=== PATIENT | female | born 1940 | race Hispanic/Latino ===

== ENCOUNTER 2017-09-23 22:01 | Inpatient (IN) | payer MEDICARE, OTHER ==
[2017-09-23 22:01] VITALS: BMI 30.7
[2017-09-23] MEDS ORDERED: Sodium Chloride 0.9% 1,000 ML IV ONE (23:11)
--- NOTE | 2017-09-23 23:11 | C.PDOC ---
History Of Present Illness Patient brought in by EMS sent by [facility] at [facility] presents to ED for nausea and vomiting, associated with epigastric/periumbilical pain. Denies, diarrhea, constipation, shortness of breath. Time Seen by Provider: 09/23/17 23:11 Chief Complaint (Nursing): Abdominal Pain History Per: Patient History/Exam Limitations: no limitations Onset/Duration Of Symptoms: Hrs Current Symptoms Are (Timing): Still Present Severity: Moderate Pain Scale Rating Of: 4 Location Of Pain/Discomfort: Epigastric, Periumbilical Quality Of Discomfort: Unable To Describe Associated Symptoms: Nausea, Vomiting. denies: Fever, Chills, Diarrhea, Constipation Exacerbating Factors: None Alleviating Factors: None Recent travel outside of the [place]: No Past Medical History Reviewed: Historical Data, Nursing Documentation, Vital Signs Vital Signs: Last Vital Signs Temp 97.9 F 09/24/17 01:22 Pulse 85 09/24/17 01:22 Resp 24 09/24/17 01:22 BP 62/34 L 09/24/17 01:22 Pulse Ox 100 09/24/17 01:22 - Medical History PMH: Arthritis, Diabetes, Gall Bladder Disease (CHOLEYCSTECTOMY), HTN, Peripheral Edema Denies: Depression Surgical History: Cholecystectomy - [facility] Procedures APPLICATION OF SPLINT (10/29/03) DX ULTRASOUND-DIGESTIVE (11/26/13) ESOPHAGOGASTRODUODENOSCOPY [EGD] W/CLOSED BIOPSY (11/26/13) INTRAOPER CHOLANGIOGRAM (11/26/13) LAPAROSCOPIC CHOLECYSTECTOMY (11/26/13) VACCINATION NEC (08/18/14) Family History: States: No Known Family Hx - Social History Hx Alcohol Use: No Hx Substance Use: No - Immunization History Hx Tetanus Toxoid Vaccination: No Hx Influenza Vaccination: No Hx Pneumococcal Vaccination: No Review Of Systems Constitutional: Negative for: Fever, Chills Respiratory: Negative for: Shortness of Breath Gastrointestinal: Positive for: Nausea, Vomiting, Abdominal Pain. Negative for : Diarrhea, Constipation Neurological: Negative for: Weakness, Numbness Physical Exam - Physical Exam Appears: Non-toxic Skin: Warm, Dry Head: Normacephalic Eye(s): bilateral: Normal Inspection Oral Mucosa: Dry Neck: Trachea Midline, Supple Chest: Symmetrical Cardiovascular: Rhythm Regular Respiratory: No Rales, Rhonchi (dry, scattered), No Wheezing Gastrointestinal/Abdominal: Soft, Tenderness (mid epigastric), Distention, No Guarding, No Rebound, Other (tympanic to percussion) Neurological/Psych: Oriented x3 Gait: Steady ED Course And Treatment - Laboratory Results Result Diagrams: 09/24/17 00:10 09/24/17 00:10 ECG: Interpreted By Me, Viewed By Me ECG Rhythm: Sinus Rhythm (84), R BBB, Nonspecific Changes O2 Sat by Pulse Oximetry: 97 (RA) Pulse Ox Interpretation: Normal - Radiology CXR Interpretation: Yes: Infiltrates (rll, ), Cardiomegaly, Other (? mild vasc congestion). No: Fracture Progress Note: EKG, chest X-ray, labs, protonix, zofran, urinalysis ordered. Critical Care Time - Critical Care Note Total Time (in mins): 30 Documented critical care: time excludes all time spent performing seperately billable procedures. Disposition Discussed With : Morales Kerr Comment: accepted the pt on his service and took over the care at 3 AM Doctor Will See Patient In The: Hospital Counseled Patient/Family Regarding: Studies Performed, Diagnosis - Disposition Disposition: HOSPITALIZED Disposition Time: 23:11 Condition: FAIR Forms: [employer] (Tuvaluan) - POA Present On Arrival: Poor Glycemic Control - Clinical Impression Clinical Impression: Abdominal pain, Nausea, Pneumonia, Renal insufficiency - Scribe Statement The provider has reviewed the documentation as recorded by the Jimenez Funk Anand Provider Attestation: All medical record entries made by the Jimenez were at my direction and personally dictated by me. I have reviewed the chart and agree that the record accurately reflects my personal performance of the history, physical exam, medical decision making, and the department course for this patient. I have also personally directed, reviewed, and agree with the discharge instructions and disposition. Decision To Admit - Pt Status Changed To: Hospital Disposition Of: Inpatient - Admit Certification Admit to Inpatient:: After my assessment, the patient will require hospitalization for at least two midnights. This is because of the severity of symptoms shown, intensity of services needed, and/or the medical risk in this patient being treated as an outpatient. - InPatient: Physician Admission Certification:: After my assessment, the patient will require hospitalization for at least two midnights. This is because of the severity of symptoms shown, intensity of services needed, and/or the medical risk in this patient being treated as an outpatient. - . Bed Request Type: Telemetry Admitting Physician: Morales Kerr Patient Diagnosis: Abdominal pain, Nausea, Pneumonia
[2017-09-23] MEDS ORDERED: Sodium Chloride 0.9% 1,000 ML ONE (23:14)
[2017-09-23 23:33] LABS: VENOUS BLOOD GAS BASE EXCESS 1.9 mmol/L (0.0-2.0); VENOUS BLOOD GAS PCO2 41 mmHg (40-60); VENOUS BLOOD GAS PO2 18 mm/Hg (30-55); VENOUS BLOOD PH 7.42 (7.32-7.43)
[2017-09-24 00:19] LABS: BASO % 0.3 % (0.0-2.0); LYMPH # 1.4 K/uL (1.0-4.3); LYMPH % 8.1 % (20.0-40.0); MEAN CELL VOLUME 87.1 fL (81.0-99.0); MEAN CORPUSCULAR HEMOGLOBIN 28.8 pg (27.0-31.0); MEAN CORPUSCULAR HGB CONC 33.1 g/dL (33.0-37.0); MEAN PLATELET VOLUME 7.9 fL (7.2-11.7); MONO # 0.4 K/uL (0.0-0.8); MONO % 2.2 % (0.0-10.0); NEUT # 15.2 K/uL (1.8-7.0); NEUT % 89.4 % (50.0-75.0); PLATELET COUNT 150 K/uL (130-400); RBC 3.48 Mil/uL (3.80-5.20); RED CELL DISTRIBUTION WIDTH 15.3 % (11.5-14.5)
[2017-09-24] MEDS ORDERED: Piperacillin/Tazobact 3.375 gm 100 ML IVPB STA (00:32)
[2017-09-24 00:33] LABS: INR 1.3; PROTHROMBIN TIME 14.6 SECONDS (9.7-12.2)
[2017-09-24] MEDS ORDERED: Piperacillin/Tazobact 3.375 gm 100 ML IVPB ONE (00:38)
[2017-09-24 00:41] LABS: ALB/GLOB RATIO 1.1 (1.0-2.1); ALBUMIN 2.9 g/dL (3.5-5.0); CALCIUM 9.1 mg/dl (8.6-10.4)
[2017-09-24 01:00] LABS: SQUAMOUS EPITHIAL 1 /hpf (0-5); URINE AMORPHOUS SEDIMENT RARE /ul (<OCC); URINE BACTERIA OCC (<OCC); URINE BILIRUBIN NEGATIVE (NEGATIVE); URINE BLOOD 1+ (NEGATIVE); URINE CLARITY Hazy (Clear); URINE COLOR Amber (YELLOW); URINE GLUCOSE (UA) NORMAL (Normal); URINE LEUKOCYTE ESTERASE TRACE Leu/uL (Negative); URINE PROTEIN 1+ mg/dL (NEGATIVE)
[2017-09-24] MEDS ORDERED: Sodium Chloride 0.9% 1,000 ML ONE ×3 (01:39→05:32)
[2017-09-24 01:56] LABS: BANDS 22 % (0-2); LYMPHOCYTE 8 % (20-40); MONOCYTE 3 % (0-10); NEUTROPHIL 67 % (50-75); PLATELET ESTIMATE NORMAL (NORMAL); TOTAL CELLS COUNTED 100
[2017-09-24] MEDS ORDERED: Vancomycin 1 GM 1 GM/250 ML BAG IVPB SCH (02:15)
[2017-09-24] MEDS ORDERED: Vancomycin 1 GM 1 GM/250 ML BAG IVPB STA (02:16)
[2017-09-24] MEDS ORDERED: Sodium Chloride 0.9% 1,000 ML IV ONE ×5 (03:13→08:58)
[2017-09-24] MEDS: Albuterol-Ipratrop 3 mg / 0.5 (3 ml) UD INH SCH ×4 (04:31→16:00)
[2017-09-24] MEDS ORDERED: Albuterol-Ipratrop 3 mg / 0.5 (3 ml) UD ONE (04:35)
[2017-09-24 04:40] LABS: VENOUS BLOOD GAS BASE EXCESS -1.9 mmol/L (0.0-2.0); VENOUS BLOOD GAS PCO2 46 mmHg (40-60); VENOUS BLOOD GAS PO2 18 mm/Hg (30-55); VENOUS BLOOD PH 7.33 (7.32-7.43)
--- NOTE | 2017-09-24 05:57 | CP.PCM.CON ---
History of Present Illness - History of Present Illness History of Present Illness: CCM 77 yo female NHR with hx HTn /DM /Arthritis sent to ED b/o abd. pain and vomited. Pt had low BP in ED which improved after 2 liters IV fluid. Pt started on Ab for UTI and PNA. Pt admits dysuria for 1 month. Denies pain /n /v /d /sob /cough/ PATEL/ dizziness. ROS- as noted All- PCN / eggs Social- ex-tob/ no etoh or drugs Meds- reviewed FH- Unknown PE T-99.6 P 88 R- 16 BP 115/49 Neck- no jvd lungs- bilat bs haert-rr aBd- bs+, soft, no localized tenderness Ext- nontender Labs, ekg, x-rays Reviewed A&P Severe Sepsis UTI PNA IKE Anemia DM Hx HTN Arthritis cont IV fluid cont AB/ add zithromax check cultures Urine Leg Ag maintain optimal lytes f/u labs /lactate DVT prophylaxis critical care time spent 40 min Past Patient History - Infectious Disease Hx of Infectious Diseases: None - Tetanus Immunizations Tetanus Immunization: Unknown - Past Social History Smoking Status: Current Some Days Smoker - CARDIAC Hx Hypertension: Yes Hx Peripheral Edema: Yes - PULMONARY Hx Respiratory Disorders: Yes (SMOKED CIGARETTES SINCE 16 YRS OLD.CURRENTLY SMOKED 1/2 PPD) - HEENT Hx HEENT Problems: Yes (recently having blurred vision both eyes-CATARACTS) Hx Cataracts: Yes (BILATERAL BLURRY VISION) - ENDOCRINE/METABOLIC Hx Endocrine Disorders: Yes Hx Diabetes Mellitus Type 2: Yes - HEMATOLOGICAL/ONCOLOGICAL Hx Blood Disorders: Yes Other/Comment: SEPSIS 2NDARY TO UTI - INTEGUMENTARY Hx Dermatological Problems: Yes (MASD-IN BETWEEN GLUTEAL FOLDS SECONDARY TO INCONTINENCY) Other/Comment: IASD - MUSCULOSKELETAL/RHEUMATOLOGICAL Hx Arthritis: Yes - GASTROINTESTINAL Hx Gall Bladder Disease: Yes (CHOLEYCSTECTOMY) - GENITOURINARY/GYNECOLOGICAL Hx Genitourinary Disorders: Yes Hx Incontinence: Yes (urine/frequency) Hx Urinary Tract Infection: Yes Other/Comment: PYELONEPHRITIS - PSYCHIATRIC Hx Depression: No Hx Substance Use: No - SURGICAL HISTORY Hx Cholecystectomy: Yes - ANESTHESIA Hx Anesthesia: Yes Hx Anesthesia Reactions: No Hx Malignant Hyperthermia: No Meds Allergies/Adverse Reactions: Allergies Allergy/AdvReac Type Severity Reaction Status Date / Time egg Allergy RASH Verified 09/24/17 05:28 ORANGE Allergy RASH Verified 02/07/15 18:32 - Medications Medications: Current Medications Albuterol/Ipratropium (Duoneb 3 Mg/0.5 Mg (3 Ml) Ud) 3 ml INH RQ4 BARNEY Stop: 09/24/17 16:01 Last Admin: 09/24/17 04:31 Dose: 3 ml Sodium Chloride (Sodium Chloride 0.9%) 1,000 mls @ 200 mls/hr IV .Q5H ONE Stop: 09/24/17 08:12 Last Admin: 09/24/17 03:30 Dose: 200 mls/hr Results - Vital Signs Recent Vital Signs: Last Vital Signs Temp 98.7 F 09/24/17 04:05 Pulse 98 H 09/24/17 05:13 Resp 24 09/24/17 05:13 BP 115/49 L 09/24/17 05:13 Pulse Ox 99 09/24/17 05:13 - Labs Result Diagrams: 09/24/17 00:10 09/24/17 00:10 Labs: Laboratory Results - last 24 hr 09/23/17 09/24/17 09/24/17 23:20 00:10 00:10 WBC 17.0 H RBC 3.48 L Hgb 10.0 L Hct 30.3 L MCV 87.1 MCH 28.8 MCHC 33.1 RDW 15.3 H Plt Count 150 MPV 7.9 Neut % (Auto) 89.4 H Lymph % (Auto) 8.1 L [place] % (Auto) 2.2 Eos % (Auto) 0.0 Baso % (Auto) 0.3 Neut # (Auto) 15.2 H Lymph # (Auto) 1.4 [place] # (Auto) 0.4 Eos # (Auto) 0.0 Baso # (Auto) 0.0 Neutrophils % (Manual) 67 Band Neutrophils % 22 H* Lymphocytes % (Manual) 8 L Monocytes % (Manual) 3 Platelet Estimate Normal RBC Morphology Normal PT INR APTT pO2 18 L VBG pH 7.42 VBG pCO2 41 VBG HCO3 24.5 VBG Total CO2 27.9 VBG O2 Sat (Calc) 30.8 L VBG Base Excess 1.9 VBG Potassium 4.4 Sodium 131.0 L 133 Chloride 98.0 95 L Glucose 105 Lactate 2.1 Potassium 4.6 Carbon Dioxide 27 Anion Gap 16 BUN 33 H Creatinine 2.2 H Est GFR ( Amer) 26 Est GFR (Non-Af Amer) 22 POC Glucose (mg/dL) Random Glucose 107 H Calcium 9.1 Total Bilirubin 0.9 AST 12 L ALT 19 Alkaline Phosphatase 50 Total Protein 5.5 L Albumin 2.9 L Globulin 2.6 Albumin/Globulin Ratio 1.1 Lipase 13 L Venous Blood Potassium 4.4 Urine Color Urine Clarity Urine pH Ur Specific [place] Urine Protein Urine Glucose (UA) Urine Ketones Urine Blood Urine Nitrate Urine Bilirubin Urine Urobilinogen Ur Leukocyte Esterase Urine WBC (Auto) Urine RBC (Auto) Ur Squamous Epith Cells Amorphous Sediment Urine Bacteria 09/24/17 09/24/17 09/24/17 00:10 00:10 00:52 WBC RBC Hgb Hct MCV MCH MCHC RDW Plt Count MPV Neut % (Auto) Lymph % (Auto) [place] % (Auto) Eos % (Auto) Baso % (Auto) Neut # (Auto) Lymph # (Auto) [place] # (Auto) Eos # (Auto) Baso # (Auto) Neutrophils % (Manual) Band Neutrophils % Lymphocytes % (Manual) Monocytes % (Manual) Platelet Estimate RBC Morphology PT 14.6 H INR 1.3 APTT 27 pO2 VBG pH VBG pCO2 VBG HCO3 VBG Total CO2 VBG O2 Sat (Calc) VBG Base Excess VBG Potassium Sodium Chloride Glucose Lactate Potassium Carbon Dioxide Anion Gap BUN Creatinine Est GFR ( Amer) Est GFR (Non-Af Amer) POC Glucose (mg/dL) 69 Random Glucose Calcium Total Bilirubin AST ALT Alkaline Phosphatase Total Protein Albumin Globulin Albumin/Globulin Ratio Lipase Venous Blood Potassium Urine Color Gema Urine Clarity Hazy Urine pH 5.0 Ur Specific [place] 1.012 Urine Protein 1+ H Urine Glucose (UA) Normal Urine Ketones Trace Urine Blood 1+ H Urine Nitrate Negative Urine Bilirubin Negative Urine Urobilinogen 4.0 H Ur Leukocyte Esterase Trace Urine WBC (Auto) 53 H Urine RBC (Auto) 7 H Ur Squamous Epith Cells 1 Amorphous Sediment Rare H Urine Bacteria Occ H 09/24/17 09/24/17 00:58 04:29 WBC RBC Hgb Hct MCV MCH MCHC RDW Plt Count MPV Neut % (Auto) Lymph % (Auto) [place] % (Auto) Eos % (Auto) Baso % (Auto) Neut # (Auto) Lymph # (Auto) [place] # (Auto) Eos # (Auto) Baso # (Auto) Neutrophils % (Manual) Band Neutrophils % Lymphocytes % (Manual) Monocytes % (Manual) Platelet Estimate RBC Morphology PT INR APTT pO2 18 L VBG pH 7.33 VBG pCO2 46 VBG HCO3 21.4 VBG Total CO2 25.7 VBG O2 Sat (Calc) 33.8 L VBG Base Excess -1.9 L VBG Potassium 4.4 Sodium 133.0 Chloride 103.0 Glucose 59 L Lactate 2.9 H Potassium Carbon Dioxide Anion Gap BUN Creatinine Est GFR ( Amer) Est GFR (Non-Af Amer) POC Glucose (mg/dL) 67 Random Glucose Calcium Total Bilirubin AST ALT Alkaline Phosphatase Total Protein Albumin Globulin Albumin/Globulin Ratio Lipase Venous Blood Potassium 4.4 Urine Color Urine Clarity Urine pH Ur Specific [place] Urine Protein Urine Glucose (UA) Urine Ketones Urine Blood Urine Nitrate Urine Bilirubin Urine Urobilinogen Ur Leukocyte Esterase Urine WBC (Auto) Urine RBC (Auto) Ur Squamous Epith Cells Amorphous Sediment Urine Bacteria Assessment & Plan (1) Severe sepsis Status: Acute (2) IKE (acute kidney injury) Status: Acute (3) Urinary tract infection Status: Acute (4) Diabetes Status: Chronic (5) Arthritis Status: Chronic
[2017-09-24] MEDS: Azithromycin 500 MG in Sodium Chloride 0.9% 250 ML IVPB SCH (06:16)
--- NOTE | 2017-09-24 09:48 | CT ---
PROCEDURE: CT Abdomen and Pelvis without contrast HISTORY: mid epigastric pain, n/v COMPARISON: None. TECHNIQUE: CT scan of the abdomen and pelvis was performed without IV contrast. The absence of oral contrast limits evaluation of bowel lumen. The absence of intravenous contrast limits evaluation of solid organs including the kidneys as well as blood vessels and vascular structures. Coronal and sagittal reconstructions were also acquired. Radiation dose: Total exam DLP = 990 mGy-cm. FINDINGS: LOWER THORAX: Calcified granuloma right middle lobe. Large consolidation right lower lobe with air bronchograms. Small left pleural effusion. Minimal left basilar dependent atelectasis. Heart is normal in size. Coronary vessel calcifications are noted. Patient appears to be status post left mastectomy. . LIVER: Unremarkable unenhanced appearance. GALLBLADDER AND BILE DUCTS: Gallbladder is surgically absent with multiple surgical clips in the gallbladder fossa. PANCREAS: Mild fatty atrophy of the pancreas. SPLEEN: Unremarkable unenhanced appearance. ADRENALS: Unremarkable unenhanced appearance. KIDNEYS AND URETERS: Right kidney: Unremarkable unenhanced appearance. There is no nephrolithiasis or hydronephrosis. Left kidney: Unremarkable unenhanced appearance. There is no nephrolithiasis or hydronephrosis. BLADDER: Diffuse wall thickening noted of the urinary bladder. REPRODUCTIVE: Uterus appears unremarkable by CT. APPENDIX: Not identified. No evidence of appendicitis. STOMACH AND BOWEL: There is no abnormal small or large bowel dilatation. Diverticulum noted of the 2nd portion duodenum. PERITONEUM: No free fluid or free air identified. LYMPH NODES: No significant abdominal or pelvic lymphadenopathy. VASCULATURE: Aorta is normal in caliber.Aortobi-iliac atherosclerotic disease noted. BONES: Bones are demineralized and demonstrate degenerative changes. Superior compression deformity of L2 with 25-50 % loss of vertebral body height. Superior compression deformity of L3 with up to 25 % loss of vertebral body height. These are both age indeterminate. OTHER FINDINGS: Small fat containing umbilical hernia. Laxity noted of the pelvic floor. IMPRESSION: Diffuse wall thickening of the urinary bladder. Consider cystitis. Correlation with urinalysis is recommended. Right lower lobe consolidation, consistent with infectious/ inflammatory process. Consider aspiration pneumonia. Superior compression deformities of L2 and L3 as above, age indeterminate. Additional findings as above. Preliminary impression was provided by [facility]. Findings are concordant.
[2017-09-24] MEDS: Piperacill/Tazo 2.25gm in Dex 2.25 GM/50 ML BAG IVPB SCH ×2 (09:55→17:38)
--- NOTE | 2017-09-24 11:32 | RAD ---
HISTORY: abd pain COMPARISON: None TECHNIQUE: Chest one view . FINDINGS: LUNGS: Airspace opacity right lower lung field. PLEURA: No pleural effusion is identified. CARDIOVASCULAR: Heart size is within normal limits.Atherosclerotic calcifications noted of the aorta. OSSEOUS STRUCTURES: Mild hypertrophic degenerative changes noted of the bilateral acromioclavicular joints. VISUALIZED UPPER ABDOMEN: Unremarkable. OTHER FINDINGS: None. IMPRESSION: Airspace opacity right lower lung field, likely infectious/ inflammatory process.
--- NOTE | 2017-09-24 14:08 | CP.PCM.CON ---
History of Present Illness - History of Present Illness History of Present Illness: Reason for consultation: right lung pneumonia 77-year-old female with past medical history of hypertension, diabetes, arthritis who presented to emergency room for abdominal pain and vomiting. Chest x-ray consistent with right lower lung infiltrate. Patient hypotensive in the emergency and responded to IV fluids. Patient started on IV antibiotics for his UTI and pneumonia. Vision complaining of dysuria for the past 1 month Review of Systems - Review of Systems All systems: reviewed and no additional remarkable complaints except (vomiting and abdominal pain) Past Patient History - Infectious Disease Hx of Infectious Diseases: None - Tetanus Immunizations Tetanus Immunization: Unknown - Past Medical History & Family History Past Medical History?: Yes - Past Social History Smoking Status: Former Smoker - CARDIAC Hx Hypertension: Yes Hx Peripheral Edema: Yes - PULMONARY Hx Respiratory Disorders: Yes (SMOKED CIGARETTES SINCE 16 YRS OLD.CURRENTLY SMOKED 1/2 PPD) - HEENT Hx HEENT Problems: Yes (recently having blurred vision both eyes-CATARACTS) Hx Cataracts: Yes (BILATERAL BLURRY VISION) - ENDOCRINE/METABOLIC Hx Endocrine Disorders: Yes Hx Diabetes Mellitus Type 2: Yes - HEMATOLOGICAL/ONCOLOGICAL Hx Blood Disorders: Yes Other/Comment: SEPSIS 2NDARY TO UTI - INTEGUMENTARY Hx Dermatological Problems: Yes (MASD-IN BETWEEN GLUTEAL FOLDS SECONDARY TO INCONTINENCY) Other/Comment: IASD - MUSCULOSKELETAL/RHEUMATOLOGICAL Hx Falls: Yes - GASTROINTESTINAL Hx Gall Bladder Disease: Yes (CHOLEYCSTECTOMY) - GENITOURINARY/GYNECOLOGICAL Hx Genitourinary Disorders: Yes Hx Incontinence: Yes (urine/frequency) Hx Urinary Tract Infection: Yes Other/Comment: PYELONEPHRITIS - PSYCHIATRIC Hx Substance Use: No - SURGICAL HISTORY Hx Cholecystectomy: Yes - ANESTHESIA Hx Anesthesia: Yes Hx Anesthesia Reactions: No Hx Malignant Hyperthermia: No Meds Allergies/Adverse Reactions: Allergies Allergy/AdvReac Type Severity Reaction Status Date / Time egg Allergy RASH Verified 09/24/17 05:28 ORANGE Allergy RASH Verified 02/07/15 18:32 - Medications Medications: Current Medications Albuterol/Ipratropium (Duoneb 3 Mg/0.5 Mg (3 Ml) Ud) 3 ml INH RQ4 BARNEY Stop: 09/24/17 16:01 Last Admin: 09/24/17 11:24 Dose: 3 ml Heparin Sodium (Porcine) (Heparin) 5,000 units SC Q12 BARNEY Azithromycin 500 mg/ Sodium (Chloride) 250 mls @ 250 mls/hr IVPB DAILY BARNEY PRN Reason: Protocol Stop: 09/29/17 23:59 Last Admin: 09/24/17 06:16 Dose: 250 mls/hr Sodium Chloride (Sodium Chloride 0.9%) 1,000 mls @ 70 mls/hr IV .[id number] ONE Stop: 09/24/17 23:15 Last Admin: 09/24/17 09:12 Dose: 70 mls/hr Piperacillin Sod/Tazobactam Sod (Zosyn 2.25 Gm Iv Premix) 2.25 gm in 50 mls @ 100 mls/hr IVPB Q8H BARNEY PRN Reason: Protocol Last Admin: 09/24/17 09:55 Dose: 100 mls/hr Vancomycin HCl 500 mg/ Sodium (Chloride) 100 mls @ 67 mls/hr IVPB Q24H BARNEY PRN Reason: Protocol Stop: 09/29/17 10:31 Last Admin: 09/24/17 09:55 Dose: 67 mls/hr Physical Exam - Head Exam Head Exam: ATRAUMATIC, NORMOCEPHALIC - ENT Exam ENT Exam: Mucous Membranes Moist - Neck Exam Neck exam: Positive for: Normal Inspection - Respiratory Exam Respiratory Exam: Rales, Rhonchi - Cardiovascular Exam Cardiovascular Exam: REGULAR RHYTHM - GI/Abdominal Exam GI & Abdominal Exam: Normal Bowel Sounds, Soft Results - Vital Signs Recent Vital Signs: Last Vital Signs Temp 98.4 F 09/24/17 12:23 Pulse 88 09/24/17 12:23 Resp 22 09/24/17 12:23 BP 106/47 L 09/24/17 12:23 Pulse Ox 100 09/24/17 12:23 - Labs Result Diagrams: 09/24/17 00:10 09/24/17 00:10 Labs: Laboratory Results - last 24 hr 09/23/17 09/24/17 09/24/17 23:20 00:10 00:10 WBC 17.0 H RBC 3.48 L Hgb 10.0 L Hct 30.3 L MCV 87.1 MCH 28.8 MCHC 33.1 RDW 15.3 H Plt Count 150 MPV 7.9 Neut % (Auto) 89.4 H Lymph % (Auto) 8.1 L [place] % (Auto) 2.2 Eos % (Auto) 0.0 Baso % (Auto) 0.3 Neut # (Auto) 15.2 H Lymph # (Auto) 1.4 [place] # (Auto) 0.4 Eos # (Auto) 0.0 Baso # (Auto) 0.0 Neutrophils % (Manual) 67 Band Neutrophils % 22 H* Lymphocytes % (Manual) 8 L Monocytes % (Manual) 3 Platelet Estimate Normal RBC Morphology Normal PT INR APTT pO2 18 L VBG pH 7.42 VBG pCO2 41 VBG HCO3 24.5 VBG Total CO2 27.9 VBG O2 Sat (Calc) 30.8 L VBG Base Excess 1.9 VBG Potassium 4.4 Sodium 131.0 L 133 Chloride 98.0 95 L Glucose 105 Lactate 2.1 Potassium 4.6 Carbon Dioxide 27 Anion Gap 16 BUN 33 H Creatinine 2.2 H Est GFR ( Amer) 26 Est GFR (Non-Af Amer) 22 POC Glucose (mg/dL) Random Glucose 107 H Lactic Acid Calcium 9.1 Total Bilirubin 0.9 AST 12 L ALT 19 Alkaline Phosphatase 50 Total Protein 5.5 L Albumin 2.9 L Globulin 2.6 Albumin/Globulin Ratio 1.1 Lipase 13 L Venous Blood Potassium 4.4 Urine Color Urine Clarity Urine pH Ur Specific [place] Urine Protein Urine Glucose (UA) Urine Ketones Urine Blood Urine Nitrate Urine Bilirubin Urine Urobilinogen Ur Leukocyte Esterase Urine WBC (Auto) Urine RBC (Auto) Ur Squamous Epith Cells Amorphous Sediment Urine Bacteria 09/24/17 09/24/17 09/24/17 00:10 00:10 00:52 WBC RBC Hgb Hct MCV MCH MCHC RDW Plt Count MPV Neut % (Auto) Lymph % (Auto) [place] % (Auto) Eos % (Auto) Baso % (Auto) Neut # (Auto) Lymph # (Auto) [place] # (Auto) Eos # (Auto) Baso # (Auto) Neutrophils % (Manual) Band Neutrophils % Lymphocytes % (Manual) Monocytes % (Manual) Platelet Estimate RBC Morphology PT 14.6 H INR 1.3 APTT 27 pO2 VBG pH VBG pCO2 VBG HCO3 VBG Total CO2 VBG O2 Sat (Calc) VBG Base Excess VBG Potassium Sodium Chloride Glucose Lactate Potassium Carbon Dioxide Anion Gap BUN Creatinine Est GFR ( Amer) Est GFR (Non-Af Amer) POC Glucose (mg/dL) 69 Random Glucose Lactic Acid Calcium Total Bilirubin AST ALT Alkaline Phosphatase Total Protein Albumin Globulin Albumin/Globulin Ratio Lipase Venous Blood Potassium Urine Color Gema Urine Clarity Hazy Urine pH 5.0 Ur Specific [place] 1.012 Urine Protein 1+ H Urine Glucose (UA) Normal Urine Ketones Trace Urine Blood 1+ H Urine Nitrate Negative Urine Bilirubin Negative Urine Urobilinogen 4.0 H Ur Leukocyte Esterase Trace Urine WBC (Auto) 53 H Urine RBC (Auto) 7 H Ur Squamous Epith Cells 1 Amorphous Sediment Rare H Urine Bacteria Occ H 09/24/17 09/24/17 09/24/17 00:58 04:29 04:59 WBC RBC Hgb Hct MCV MCH MCHC RDW Plt Count MPV Neut % (Auto) Lymph % (Auto) [place] % (Auto) Eos % (Auto) Baso % (Auto) Neut # (Auto) Lymph # (Auto) [place] # (Auto) Eos # (Auto) Baso # (Auto) Neutrophils % (Manual) Band Neutrophils % Lymphocytes % (Manual) Monocytes % (Manual) Platelet Estimate RBC Morphology PT INR APTT pO2 18 L VBG pH 7.33 VBG pCO2 46 VBG HCO3 21.4 VBG Total CO2 25.7 VBG O2 Sat (Calc) 33.8 L VBG Base Excess -1.9 L VBG Potassium 4.4 Sodium 133.0 Chloride 103.0 Glucose 59 L Lactate 2.9 H Potassium Carbon Dioxide Anion Gap BUN Creatinine Est GFR ( Amer) Est GFR (Non-Af Amer) POC Glucose (mg/dL) 67 64 L Random Glucose Lactic Acid Calcium Total Bilirubin AST ALT Alkaline Phosphatase Total Protein Albumin Globulin Albumin/Globulin Ratio Lipase Venous Blood Potassium 4.4 Urine Color Urine Clarity Urine pH Ur Specific [place] Urine Protein Urine Glucose (UA) Urine Ketones Urine Blood Urine Nitrate Urine Bilirubin Urine Urobilinogen Ur Leukocyte Esterase Urine WBC (Auto) Urine RBC (Auto) Ur Squamous Epith Cells Amorphous Sediment Urine Bacteria 09/24/17 09/24/17 09/24/17 05:01 06:19 09:29 WBC RBC Hgb Hct MCV MCH MCHC RDW Plt Count MPV Neut % (Auto) Lymph % (Auto) [place] % (Auto) Eos % (Auto) Baso % (Auto) Neut # (Auto) Lymph # (Auto) [place] # (Auto) Eos # (Auto) Baso # (Auto) Neutrophils % (Manual) Band Neutrophils % Lymphocytes % (Manual) Monocytes % (Manual) Platelet Estimate RBC Morphology PT INR APTT pO2 VBG pH VBG pCO2 VBG HCO3 VBG Total CO2 VBG O2 Sat (Calc) VBG Base Excess VBG Potassium Sodium Chloride Glucose Lactate Potassium Carbon Dioxide Anion Gap BUN Creatinine Est GFR ( Amer) Est GFR (Non-Af Amer) POC Glucose (mg/dL) 66 72 Random Glucose Lactic Acid 1.0 Calcium Total Bilirubin AST ALT Alkaline Phosphatase Total Protein Albumin Globulin Albumin/Globulin Ratio Lipase Venous Blood Potassium Urine Color Urine Clarity Urine pH Ur Specific [place] Urine Protein Urine Glucose (UA) Urine Ketones Urine Blood Urine Nitrate Urine Bilirubin Urine Urobilinogen Ur Leukocyte Esterase Urine WBC (Auto) Urine RBC (Auto) Ur Squamous Epith Cells Amorphous Sediment Urine Bacteria Assessment & Plan (1) Pneumonia Status: Acute Comment: continue IV antibiotics. Follow-up culture and sensitivity. Follow- up chest x-ray. Follow-up lactate level. Fluid resuscitation. and urine output (2) Severe sepsis Status: Acute (3) IKE (acute kidney injury) Status: Acute
--- NOTE | 2017-09-24 14:11 | CARD ---
APPROVED REPORT Date of service: 09/23/2017 EKG Measurement Heart [id number] <Conclusion> Normal sinus rhythm Right bundle branch block Abnormal ECG
--- NOTE | 2017-09-24 14:17 | CP.PCM.CON ---
History of Present Illness - History of Present Illness History of Present Illness: dictated Past Patient History - Infectious Disease Hx of Infectious Diseases: None - Tetanus Immunizations Tetanus Immunization: Unknown - Past Medical History & Family History Past Medical History?: Yes - Past Social History Smoking Status: Former Smoker - CARDIAC Hx Hypertension: Yes Hx Peripheral Edema: Yes - PULMONARY Hx Respiratory Disorders: Yes (SMOKED CIGARETTES SINCE 16 YRS OLD.CURRENTLY SMOKED 1/2 PPD) - HEENT Hx HEENT Problems: Yes (recently having blurred vision both eyes-CATARACTS) Hx Cataracts: Yes (BILATERAL BLURRY VISION) - ENDOCRINE/METABOLIC Hx Endocrine Disorders: Yes Hx Diabetes Mellitus Type 2: Yes - HEMATOLOGICAL/ONCOLOGICAL Hx Blood Disorders: Yes Other/Comment: SEPSIS 2NDARY TO UTI - INTEGUMENTARY Hx Dermatological Problems: Yes (MASD-IN BETWEEN GLUTEAL FOLDS SECONDARY TO INCONTINENCY) Other/Comment: IASD - MUSCULOSKELETAL/RHEUMATOLOGICAL Hx Falls: Yes - GASTROINTESTINAL Hx Gall Bladder Disease: Yes (CHOLEYCSTECTOMY) - GENITOURINARY/GYNECOLOGICAL Hx Genitourinary Disorders: Yes Hx Incontinence: Yes (urine/frequency) Hx Urinary Tract Infection: Yes Other/Comment: PYELONEPHRITIS - PSYCHIATRIC Hx Substance Use: No - SURGICAL HISTORY Hx Cholecystectomy: Yes - ANESTHESIA Hx Anesthesia: Yes Hx Anesthesia Reactions: No Hx Malignant Hyperthermia: No Meds Allergies/Adverse Reactions: Allergies Allergy/AdvReac Type Severity Reaction Status Date / Time egg Allergy RASH Verified 09/24/17 05:28 ORANGE Allergy RASH Verified 02/07/15 18:32 - Medications Medications: Current Medications Albuterol/Ipratropium (Duoneb 3 Mg/0.5 Mg (3 Ml) Ud) 3 ml INH RQ4 BARNEY Stop: 09/24/17 16:01 Last Admin: 09/24/17 11:24 Dose: 3 ml Heparin Sodium (Porcine) (Heparin) 5,000 units SC Q12 BARNEY Azithromycin 500 mg/ Sodium (Chloride) 250 mls @ 250 mls/hr IVPB DAILY BARNEY PRN Reason: Protocol Stop: 09/29/17 23:59 Last Admin: 09/24/17 06:16 Dose: 250 mls/hr Sodium Chloride (Sodium Chloride 0.9%) 1,000 mls @ 70 mls/hr IV .[id number] ONE Stop: 09/24/17 23:15 Last Admin: 09/24/17 09:12 Dose: 70 mls/hr Piperacillin Sod/Tazobactam Sod (Zosyn 2.25 Gm Iv Premix) 2.25 gm in 50 mls @ 100 mls/hr IVPB Q8H BARNEY PRN Reason: Protocol Last Admin: 09/24/17 09:55 Dose: 100 mls/hr Vancomycin HCl 500 mg/ Sodium (Chloride) 100 mls @ 67 mls/hr IVPB Q24H BARNEY PRN Reason: Protocol Stop: 09/29/17 10:31 Last Admin: 09/24/17 09:55 Dose: 67 mls/hr Results - Vital Signs Recent Vital Signs: Last Vital Signs Temp 98.4 F 09/24/17 12:23 Pulse 88 09/24/17 12:23 Resp 22 09/24/17 12:23 BP 106/47 L 09/24/17 12:23 Pulse Ox 100 09/24/17 12:23 - Labs Result Diagrams: 09/24/17 00:10 09/24/17 00:10 Labs: Laboratory Results - last 24 hr 09/23/17 09/24/17 09/24/17 23:20 00:10 00:10 WBC 17.0 H RBC 3.48 L Hgb 10.0 L Hct 30.3 L MCV 87.1 MCH 28.8 MCHC 33.1 RDW 15.3 H Plt Count 150 MPV 7.9 Neut % (Auto) 89.4 H Lymph % (Auto) 8.1 L [place] % (Auto) 2.2 Eos % (Auto) 0.0 Baso % (Auto) 0.3 Neut # (Auto) 15.2 H Lymph # (Auto) 1.4 [place] # (Auto) 0.4 Eos # (Auto) 0.0 Baso # (Auto) 0.0 Neutrophils % (Manual) 67 Band Neutrophils % 22 H* Lymphocytes % (Manual) 8 L Monocytes % (Manual) 3 Platelet Estimate Normal RBC Morphology Normal PT INR APTT pO2 18 L VBG pH 7.42 VBG pCO2 41 VBG HCO3 24.5 VBG Total CO2 27.9 VBG O2 Sat (Calc) 30.8 L VBG Base Excess 1.9 VBG Potassium 4.4 Sodium 131.0 L 133 Chloride 98.0 95 L Glucose 105 Lactate 2.1 Potassium 4.6 Carbon Dioxide 27 Anion Gap 16 BUN 33 H Creatinine 2.2 H Est GFR ( Amer) 26 Est GFR (Non-Af Amer) 22 POC Glucose (mg/dL) Random Glucose 107 H Lactic Acid Calcium 9.1 Total Bilirubin 0.9 AST 12 L ALT 19 Alkaline Phosphatase 50 Total Protein 5.5 L Albumin 2.9 L Globulin 2.6 Albumin/Globulin Ratio 1.1 Lipase 13 L Venous Blood Potassium 4.4 Urine Color Urine Clarity Urine pH Ur Specific [place] Urine Protein Urine Glucose (UA) Urine Ketones Urine Blood Urine Nitrate Urine Bilirubin Urine Urobilinogen Ur Leukocyte Esterase Urine WBC (Auto) Urine RBC (Auto) Ur Squamous Epith Cells Amorphous Sediment Urine Bacteria 09/24/17 09/24/17 09/24/17 00:10 00:10 00:52 WBC RBC Hgb Hct MCV MCH MCHC RDW Plt Count MPV Neut % (Auto) Lymph % (Auto) [place] % (Auto) Eos % (Auto) Baso % (Auto) Neut # (Auto) Lymph # (Auto) [place] # (Auto) Eos # (Auto) Baso # (Auto) Neutrophils % (Manual) Band Neutrophils % Lymphocytes % (Manual) Monocytes % (Manual) Platelet Estimate RBC Morphology PT 14.6 H INR 1.3 APTT 27 pO2 VBG pH VBG pCO2 VBG HCO3 VBG Total CO2 VBG O2 Sat (Calc) VBG Base Excess VBG Potassium Sodium Chloride Glucose Lactate Potassium Carbon Dioxide Anion Gap BUN Creatinine Est GFR ( Amer) Est GFR (Non-Af Amer) POC Glucose (mg/dL) 69 Random Glucose Lactic Acid Calcium Total Bilirubin AST ALT Alkaline Phosphatase Total Protein Albumin Globulin Albumin/Globulin Ratio Lipase Venous Blood Potassium Urine Color Gema Urine Clarity Hazy Urine pH 5.0 Ur Specific [place] 1.012 Urine Protein 1+ H Urine Glucose (UA) Normal Urine Ketones Trace Urine Blood 1+ H Urine Nitrate Negative Urine Bilirubin Negative Urine Urobilinogen 4.0 H Ur Leukocyte Esterase Trace Urine WBC (Auto) 53 H Urine RBC (Auto) 7 H Ur Squamous Epith Cells 1 Amorphous Sediment Rare H Urine Bacteria Occ H 09/24/17 09/24/17 09/24/17 00:58 04:29 04:59 WBC RBC Hgb Hct MCV MCH MCHC RDW Plt Count MPV Neut % (Auto) Lymph % (Auto) [place] % (Auto) Eos % (Auto) Baso % (Auto) Neut # (Auto) Lymph # (Auto) [place] # (Auto) Eos # (Auto) Baso # (Auto) Neutrophils % (Manual) Band Neutrophils % Lymphocytes % (Manual) Monocytes % (Manual) Platelet Estimate RBC Morphology PT INR APTT pO2 18 L VBG pH 7.33 VBG pCO2 46 VBG HCO3 21.4 VBG Total CO2 25.7 VBG O2 Sat (Calc) 33.8 L VBG Base Excess -1.9 L VBG Potassium 4.4 Sodium 133.0 Chloride 103.0 Glucose 59 L Lactate 2.9 H Potassium Carbon Dioxide Anion Gap BUN Creatinine Est GFR ( Amer) Est GFR (Non-Af Amer) POC Glucose (mg/dL) 67 64 L Random Glucose Lactic Acid Calcium Total Bilirubin AST ALT Alkaline Phosphatase Total Protein Albumin Globulin Albumin/Globulin Ratio Lipase Venous Blood Potassium 4.4 Urine Color Urine Clarity Urine pH Ur Specific [place] Urine Protein Urine Glucose (UA) Urine Ketones Urine Blood Urine Nitrate Urine Bilirubin Urine Urobilinogen Ur Leukocyte Esterase Urine WBC (Auto) Urine RBC (Auto) Ur Squamous Epith Cells Amorphous Sediment Urine Bacteria 09/24/17 09/24/17 09/24/17 05:01 06:19 09:29 WBC RBC Hgb Hct MCV MCH MCHC RDW Plt Count MPV Neut % (Auto) Lymph % (Auto) [place] % (Auto) Eos % (Auto) Baso % (Auto) Neut # (Auto) Lymph # (Auto) [place] # (Auto) Eos # (Auto) Baso # (Auto) Neutrophils % (Manual) Band Neutrophils % Lymphocytes % (Manual) Monocytes % (Manual) Platelet Estimate RBC Morphology PT INR APTT pO2 VBG pH VBG pCO2 VBG HCO3 VBG Total CO2 VBG O2 Sat (Calc) VBG Base Excess VBG Potassium Sodium Chloride Glucose Lactate Potassium Carbon Dioxide Anion Gap BUN Creatinine Est GFR ( Amer) Est GFR (Non-Af Amer) POC Glucose (mg/dL) 66 72 Random Glucose Lactic Acid 1.0 Calcium Total Bilirubin AST ALT Alkaline Phosphatase Total Protein Albumin Globulin Albumin/Globulin Ratio Lipase Venous Blood Potassium Urine Color Urine Clarity Urine pH Ur Specific [place] Urine Protein Urine Glucose (UA) Urine Ketones Urine Blood Urine Nitrate Urine Bilirubin Urine Urobilinogen Ur Leukocyte Esterase Urine WBC (Auto) Urine RBC (Auto) Ur Squamous Epith Cells Amorphous Sediment Urine Bacteria
--- NOTE | 2017-09-24 17:43 | CP.PCM.HP ---
Past Patient History - Infectious Disease Hx of Infectious Diseases: None - Tetanus Immunizations Tetanus Immunization: Unknown - Past Medical History & Family History Past Medical History?: Yes - Past Social History Smoking Status: Former Smoker - CARDIAC Hx Hypertension: Yes Hx Peripheral Edema: Yes - PULMONARY Hx Respiratory Disorders: Yes (SMOKED CIGARETTES SINCE 16 YRS OLD.CURRENTLY SMOKED 1/2 PPD) - HEENT Hx HEENT Problems: Yes (recently having blurred vision both eyes-CATARACTS) Hx Cataracts: Yes (BILATERAL BLURRY VISION) - ENDOCRINE/METABOLIC Hx Endocrine Disorders: Yes Hx Diabetes Mellitus Type 2: Yes - HEMATOLOGICAL/ONCOLOGICAL Hx Blood Disorders: Yes Other/Comment: SEPSIS 2NDARY TO UTI - INTEGUMENTARY Hx Dermatological Problems: Yes (MASD-IN BETWEEN GLUTEAL FOLDS SECONDARY TO INCONTINENCY) Other/Comment: IASD - MUSCULOSKELETAL/RHEUMATOLOGICAL Hx Falls: Yes - GASTROINTESTINAL Hx Gall Bladder Disease: Yes (CHOLEYCSTECTOMY) - GENITOURINARY/GYNECOLOGICAL Hx Genitourinary Disorders: Yes Hx Incontinence: Yes (urine/frequency) Hx Urinary Tract Infection: Yes Other/Comment: PYELONEPHRITIS - PSYCHIATRIC Hx Substance Use: No - SURGICAL HISTORY Hx Cholecystectomy: Yes - ANESTHESIA Hx Anesthesia: Yes Hx Anesthesia Reactions: No Hx Malignant Hyperthermia: No Meds Allergies/Adverse Reactions: Allergies Allergy/AdvReac Type Severity Reaction Status Date / Time egg Allergy RASH Verified 09/24/17 05:28 ORANGE Allergy RASH Verified 02/07/15 18:32 Physical Exam - Constitutional Appears: Well - Head Exam Head Exam: ATRAUMATIC, NORMAL INSPECTION, NORMOCEPHALIC - Eye Exam Eye Exam: EOMI, Normal appearance, PERRL Pupil Exam: NORMAL ACCOMODATION, PERRL - ENT Exam ENT Exam: Mucous Membranes Moist, Normal Exam - Neck Exam Neck exam: Positive for: Normal Inspection - Respiratory Exam Respiratory Exam: Decreased Breath Sounds - Cardiovascular Exam Cardiovascular Exam: REGULAR RHYTHM, +S1, +S2 - GI/Abdominal Exam GI & Abdominal Exam: Diminished Bowel Sounds, Soft - Rectal Exam Rectal Exam: Deferred Results - Vital Signs Recent Vital Signs: Last Vital Signs Temp 98.4 F 09/24/17 12:23 Pulse 92 H 09/24/17 14:00 Resp 22 09/24/17 14:00 BP 92/47 L 09/24/17 14:00 Pulse Ox 100 09/24/17 14:00 - Labs Result Diagrams: 09/24/17 00:10 09/24/17 00:10 Labs: Laboratory Results - last 24 hr 09/23/17 09/24/17 09/24/17 23:20 00:10 00:10 WBC 17.0 H RBC 3.48 L Hgb 10.0 L Hct 30.3 L MCV 87.1 MCH 28.8 MCHC 33.1 RDW 15.3 H Plt Count 150 MPV 7.9 Neut % (Auto) 89.4 H Lymph % (Auto) 8.1 L [place] % (Auto) 2.2 Eos % (Auto) 0.0 Baso % (Auto) 0.3 Neut # (Auto) 15.2 H Lymph # (Auto) 1.4 [place] # (Auto) 0.4 Eos # (Auto) 0.0 Baso # (Auto) 0.0 Neutrophils % (Manual) 67 Band Neutrophils % 22 H* Lymphocytes % (Manual) 8 L Monocytes % (Manual) 3 Platelet Estimate Normal RBC Morphology Normal PT INR APTT pO2 18 L VBG pH 7.42 VBG pCO2 41 VBG HCO3 24.5 VBG Total CO2 27.9 VBG O2 Sat (Calc) 30.8 L VBG Base Excess 1.9 VBG Potassium 4.4 Sodium 131.0 L 133 Chloride 98.0 95 L Glucose 105 Lactate 2.1 Potassium 4.6 Carbon Dioxide 27 Anion Gap 16 BUN 33 H Creatinine 2.2 H Est GFR ( Amer) 26 Est GFR (Non-Af Amer) 22 POC Glucose (mg/dL) Random Glucose 107 H Lactic Acid Calcium 9.1 Total Bilirubin 0.9 AST 12 L ALT 19 Alkaline Phosphatase 50 Total Protein 5.5 L Albumin 2.9 L Globulin 2.6 Albumin/Globulin Ratio 1.1 Lipase 13 L Venous Blood Potassium 4.4 Urine Color Urine Clarity Urine pH Ur Specific [place] Urine Protein Urine Glucose (UA) Urine Ketones Urine Blood Urine Nitrate Urine Bilirubin Urine Urobilinogen Ur Leukocyte Esterase Urine WBC (Auto) Urine RBC (Auto) Ur Squamous Epith Cells Amorphous Sediment Urine Bacteria Ur L.pneumophila Ag 09/24/17 09/24/17 09/24/17 00:10 00:10 00:52 WBC RBC Hgb Hct MCV MCH MCHC RDW Plt Count MPV Neut % (Auto) Lymph % (Auto) [place] % (Auto) Eos % (Auto) Baso % (Auto) Neut # (Auto) Lymph # (Auto) [place] # (Auto) Eos # (Auto) Baso # (Auto) Neutrophils % (Manual) Band Neutrophils % Lymphocytes % (Manual) Monocytes % (Manual) Platelet Estimate RBC Morphology PT 14.6 H INR 1.3 APTT 27 pO2 VBG pH VBG pCO2 VBG HCO3 VBG Total CO2 VBG O2 Sat (Calc) VBG Base Excess VBG Potassium Sodium Chloride Glucose Lactate Potassium Carbon Dioxide Anion Gap BUN Creatinine Est GFR ( Amer) Est GFR (Non-Af Amer) POC Glucose (mg/dL) 69 Random Glucose Lactic Acid Calcium Total Bilirubin AST ALT Alkaline Phosphatase Total Protein Albumin Globulin Albumin/Globulin Ratio Lipase Venous Blood Potassium Urine Color Gema Urine Clarity Hazy Urine pH 5.0 Ur Specific [place] 1.012 Urine Protein 1+ H Urine Glucose (UA) Normal Urine Ketones Trace Urine Blood 1+ H Urine Nitrate Negative Urine Bilirubin Negative Urine Urobilinogen 4.0 H Ur Leukocyte Esterase Trace Urine WBC (Auto) 53 H Urine RBC (Auto) 7 H Ur Squamous Epith Cells 1 Amorphous Sediment Rare H Urine Bacteria Occ H Ur L.pneumophila Ag 09/24/17 09/24/17 09/24/17 00:58 04:29 04:59 WBC RBC Hgb Hct MCV MCH MCHC RDW Plt Count MPV Neut % (Auto) Lymph % (Auto) [place] % (Auto) Eos % (Auto) Baso % (Auto) Neut # (Auto) Lymph # (Auto) [place] # (Auto) Eos # (Auto) Baso # (Auto) Neutrophils % (Manual) Band Neutrophils % Lymphocytes % (Manual) Monocytes % (Manual) Platelet Estimate RBC Morphology PT INR APTT pO2 18 L VBG pH 7.33 VBG pCO2 46 VBG HCO3 21.4 VBG Total CO2 25.7 VBG O2 Sat (Calc) 33.8 L VBG Base Excess -1.9 L VBG Potassium 4.4 Sodium 133.0 Chloride 103.0 Glucose 59 L Lactate 2.9 H Potassium Carbon Dioxide Anion Gap BUN Creatinine Est GFR ( Amer) Est GFR (Non-Af Amer) POC Glucose (mg/dL) 67 64 L Random Glucose Lactic Acid Calcium Total Bilirubin AST ALT Alkaline Phosphatase Total Protein Albumin Globulin Albumin/Globulin Ratio Lipase Venous Blood Potassium 4.4 Urine Color Urine Clarity Urine pH Ur Specific [place] Urine Protein Urine Glucose (UA) Urine Ketones Urine Blood Urine Nitrate Urine Bilirubin Urine Urobilinogen Ur Leukocyte Esterase Urine WBC (Auto) Urine RBC (Auto) Ur Squamous Epith Cells Amorphous Sediment Urine Bacteria Ur L.pneumophila Ag 09/24/17 09/24/17 09/24/17 05:01 06:19 09:29 WBC RBC Hgb Hct MCV MCH MCHC RDW Plt Count MPV Neut % (Auto) Lymph % (Auto) [place] % (Auto) Eos % (Auto) Baso % (Auto) Neut # (Auto) Lymph # (Auto) [place] # (Auto) Eos # (Auto) Baso # (Auto) Neutrophils % (Manual) Band Neutrophils % Lymphocytes % (Manual) Monocytes % (Manual) Platelet Estimate RBC Morphology PT INR APTT pO2 VBG pH VBG pCO2 VBG HCO3 VBG Total CO2 VBG O2 Sat (Calc) VBG Base Excess VBG Potassium Sodium Chloride Glucose Lactate Potassium Carbon Dioxide Anion Gap BUN Creatinine Est GFR ( Amer) Est GFR (Non-Af Amer) POC Glucose (mg/dL) 66 72 Random Glucose Lactic Acid 1.0 Calcium Total Bilirubin AST ALT Alkaline Phosphatase Total Protein Albumin Globulin Albumin/Globulin Ratio Lipase Venous Blood Potassium Urine Color Urine Clarity Urine pH Ur Specific [place] Urine Protein Urine Glucose (UA) Urine Ketones Urine Blood Urine Nitrate Urine Bilirubin Urine Urobilinogen Ur Leukocyte Esterase Urine WBC (Auto) Urine RBC (Auto) Ur Squamous Epith Cells Amorphous Sediment Urine Bacteria Ur L.pneumophila Ag 09/24/17 14:57 WBC RBC Hgb Hct MCV MCH MCHC RDW Plt Count MPV Neut % (Auto) Lymph % (Auto) [place] % (Auto) Eos % (Auto) Baso % (Auto) Neut # (Auto) Lymph # (Auto) [place] # (Auto) Eos # (Auto) Baso # (Auto) Neutrophils % (Manual) Band Neutrophils % Lymphocytes % (Manual) Monocytes % (Manual) Platelet Estimate RBC Morphology PT INR APTT pO2 VBG pH VBG pCO2 VBG HCO3 VBG Total CO2 VBG O2 Sat (Calc) VBG Base Excess VBG Potassium Sodium Chloride Glucose Lactate Potassium Carbon Dioxide Anion Gap BUN Creatinine Est GFR ( Amer) Est GFR (Non-Af Amer) POC Glucose (mg/dL) Random Glucose Lactic Acid Calcium Total Bilirubin AST ALT Alkaline Phosphatase Total Protein Albumin Globulin Albumin/Globulin Ratio Lipase Venous Blood Potassium Urine Color Urine Clarity Urine pH Ur Specific [place] Urine Protein Urine Glucose (UA) Urine Ketones Urine Blood Urine Nitrate Urine Bilirubin Urine Urobilinogen Ur Leukocyte Esterase Urine WBC (Auto) Urine RBC (Auto) Ur Squamous Epith Cells Amorphous Sediment Urine Bacteria Ur L.pneumophila Ag Negative
[2017-09-25] MEDS: Piperacill/Tazo 2.25gm in Dex 2.25 GM/50 ML BAG IVPB SCH ×2 (01:07→10:48)
[2017-09-25 06:33] LABS: BASO % 0.1 % (0.0-2.0); EOS % 0.1 % (0.0-4.0); HEMOGLOBIN 9.5 g/dL (11.0-16.0); LYMPH # 0.8 K/uL (1.0-4.3); LYMPH % 4.3 % (20.0-40.0); MEAN CELL VOLUME 87.6 fL (81.0-99.0); MEAN CORPUSCULAR HEMOGLOBIN 28.5 pg (27.0-31.0); MEAN CORPUSCULAR HGB CONC 32.5 g/dL (33.0-37.0); MEAN PLATELET VOLUME 7.9 fL (7.2-11.7); MONO # 0.4 K/uL (0.0-0.8); NEUT # 17.8 K/uL (1.8-7.0); NEUT % 93.5 % (50.0-75.0); PLATELET COUNT 139 K/uL (130-400); RBC 3.32 Mil/uL (3.80-5.20); RED CELL DISTRIBUTION WIDTH 15.5 % (11.5-14.5); WHITE BLOOD COUNT 19.1 K/uL (4.8-10.8)
[2017-09-25 07:04] LABS: ALB/GLOB RATIO 0.9 (1.0-2.1); ALBUMIN 2.6 g/dL (3.5-5.0); CALCIUM 7.4 mg/dl (8.6-10.4)
[2017-09-25] MEDS ORDERED: Dextrose 50% VIAL Inj (50 ml) IV ONE ×3 (07:10→21:07)
[2017-09-25] MEDS ORDERED: Dextrose 50% SYRINGE Inj (50 ml) IV STA (07:12)
[2017-09-25 08:55] LABS: BANDS 11 % (0-2); EOSINOPHIL 1 % (0-4); LYMPHOCYTE 9 % (20-40); NEUTROPHIL 79 % (50-75); TOTAL CELLS COUNTED 100
[2017-09-25 08:56] LABS: ANISOCYTOSIS SLIGHT; HYPOCHROMIC SLIGHT; PLATELET ESTIMATE NORMAL (NORMAL); POIKILOCYTOSIS SLIGHT; TOXIC GRANULATION PRESENT
--- NOTE | 2017-09-25 09:57 | CON ---
Copied To: Brock Ponce MD Attending MD: Brock Ponce MD DATE: 09/24/2017 INFECTIOUS DISEASE CONSULT REQUESTED BY: Dr. Meggan Kerr. HISTORY OF PRESENT ILLNESS: This patient is a 77-year-old female. She is admitted to the ICU as she came in with hypotension and also is septic with a high lactate level. The patient was also hypotensive. The patient's past medical history is significant for hypertension, diabetes, and arthritis, and she comes from a senior care. She has history of having UTIs, and right now, she does have pyuria. She is waking up. She did have vomiting in the senior care and came in with abdominal pain and is found to have right lower lobe infiltrate. She has pneumonia and UTI, and I am dictating this consult little late from the time when I saw her. I saw her on 03/26/2017. This patient's blood cultures, two sets, are positive for Gram-positive cocci. We will look into that also. She received vancomycin. She is also on Zosyn, and she is on Zithromax. ALLERGIES: SHE IS ALLERGIC TO EGG AND ORANGE. PAST MEDICAL HISTORY: Significant for hypertension, diabetes, arthritis, and history of UTIs in the past. She came in with abdominal pain and vomiting, but here, she has had no vomiting according to the patient. She says she only vomited in the senior care. She is from senior care. She is currently still smoking. She smokes half pack per day, and she started at the age of 16, and she has blurred vision in both eyes. She has cataract and has respiratory issues because she is a smoker. Endocrine kumar, she has diabetes. Hematologically, she came in with sepsis and UTI and has a high white count. Skin conditions, she has some rashes in the gluteal folds. She is incontinent of urine, and she has history of falls. GI, she had cholecystectomy. kumar, she is incontinent of urine, history of UTIs and pyelonephritis in the past. No history of psych issues. History of cholecystectomy. She received anesthesia for that. MEDICATIONS: Her medications here: She is on albuterol, heparin, Zithromax, sodium chloride, Zosyn, and she did get vancomycin 500 every 24 hours. She is on it, and she did receive 1 g around 02:00 a.m. last night and 500 today, but her creatinine is elevated, so we will need to be cautious about giving vancomycin. REVIEW OF SYSTEMS: She denies any headache right now. Denied any ear, nose, or throat problems. She has had some cough. Denies abdominal pain when I saw her. No nausea, no vomiting. She is incontinent of urine, but she was feeling better. Denied any joint pains, and she denied any psych issues and she did state that she has cataracts in her eyes, and she said she was feeling little better as she has been hypotensive before. PHYSICAL EXAMINATION: VITAL SIGNS: Right now, her T-max is 99.9, pulse 93, blood pressure 116/53, respirations are 24. She is on nasal cannula 3 liters. HEENT: Head is atraumatic, normocephalic. Pupils are reacting to light. No icterus noted. Eye movements are unremarkable. Tongue is moist. NECK: Supple. JVP is flat. CHEST: Chest wall is symmetrical. No crackles. She did have coarse rales and rhonchi bilaterally. HEART: S1, S2 are regular. No murmurs appreciated. ABDOMEN: Soft, nontender. No guarding, no rigidity present. EXTREMITIES: Have no edema, clubbing, or cyanosis noted. LABORATORY DATA: Her labs are noted. White count is 17 today, hemoglobin is 10, hematocrit 30.3, platelet count of 150, bands are 22, lymphs are 8, monos are 3, INR is 1.3, and ABG showed, this is I think is venous with a pH of 7.33, CO2 of 46, and lactate level was 2.1 and 2.9. Sodium is 133, potassium 4.6, chlorides are 95, CO2 is 27, anion gap is 16, BUN is 33, creatinine is 2.2, and glucose is 107. UA shows 1+ proteins, 1+ blood, and it shows 53 wbc, rbc 7, is 1. We asked for urine Legionella which is negative at this time, but micro has Gram-positive cocci, both the sets. Also, she is on vancomycin. She is on Zithromax. She is on Zosyn. She is well covered. We will repeat the vancomycin random level in a.m. to see if the level is higher than 20, then we are not going to give any vancomycin as she does have renal insufficiency and she has severe bandemia. She is septic with gram-positive septicemia with pneumonia with UTI as well as acidosis. Her x-ray shows right lower lobe infiltrate. An abdomen and pelvic CAT scan was also done, which shows diffuse wall thickening of the urinary bladder, consider cystitis, right lower lobe consolidation consistent with infection and inflammatory process, superior compression deformities of L2 and L3. IMPRESSION: My impression is she does have pneumonia as well as urinary tract infection, came in hypotensive with septicemia and acidosis and with probably acute renal failure and urinary tract infection. Suggest at this time to continue present antibiotics. Check echocardiogram to rule out endocarditis. Check Mycoplasma, Legionella, and other etiologies for pneumonia, and she vomited, it could be aspiration pneumonia, and to follow the urine culture and identification and sensitivity of the blood cultures, and the echo report to rule out any vegetation. We will follow. Brock Ponce MD
[2017-09-25] MEDS: Pantoprazole 40 mg EC Tab PO SCH (10:38)
[2017-09-25] MEDS ORDERED: Dextrose 5%/0.9% NS 1,000 ML IV ONE ×2 (10:59→17:01)
[2017-09-25] MEDS: Azithromycin 500 MG in Sodium Chloride 0.9% 250 ML IVPB SCH (11:00)
--- NOTE | 2017-09-25 11:27 | CP.PCM.CON ---
History of Present Illness - History of Present Illness History of Present Illness: Palliative consult requested by Doctor Levy for goals of care discussion Patient is a 77 yo female admitted [place] with complaints of nausea and vomiting, fallowed by epigastric pain and decreased appetite. Per family, patient was in her normal state of being on Saturday when they last saw her. No constipation, no diarrhea. In ED , BP was low and improved with IV fluids. Ct chest suggestive of aspiration pneumonia. WBC 19.1, a lot of bacteria in the urine. Patient diagnosed with septicemia and IV antibiotics started. 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 Hx: [place] resident X 4 years, , daughter and son visit regularly fam. Hx: mother with arthritis, from complications of CVA Review of Systems - Constitutional Constitutional: Weakness - EENT Eyes: absent: As Per HPI, Blind Spots, Blurred Vision, Change in Vision, Decreased Night Vision, Diplopia, Discharge, Dry Eye, Exophthalmos, Floaters, Irritation, Itchy Eyes, Loss of Peripheral Vision, Pain, Photophobia, Requires Corrective Lenses, Sees Flashes, Spots in Vision, Tunnel Vision, Other Visual Disturbances, Loss of Vision, Other Ears: absent: As Per HPI, Decreased Hearing, Ear Discharge, Ear Pain, Tinnitus, Abnormal Hearing, Disequilibrium, Dizziness, Other Nose/Mouth/Throat: absent: As Per HPI, Epistaxis, Nasal Congestion, Nasal Discharge, Nasal Obstruction, Nasal Trauma, Nose Pain, Post Nasal Drip, Sinus Pain, Sinus Pressure, Bleeding Gums, Change in Voice, Dental Pain, Dry Mouth, Dysphagia, Halitosis, Hoarsness, Lip Swelling, Mouth Lesions, Mouth Pain, Odynophagia, Sore Throat, Throat Swelling, Tongue Swelling, Facial Pain, Neck Pain, Neck Mass, Other - Breasts Breasts: absent: As Per HPI, Change in Shape, Mass, Pain, Nipple Discharge, Nipple Inversion, Skin Changes, Swelling, Other - Cardiovascular Cardiovascular: Pedal Edema - Respiratory Respiratory: absent: As Per HPI, Cough, Dyspnea, Hemoptysis, Dyspnea on Exertion , Wheezing, Snoring, Stridor, Pain on Inspiration, Chest Congestion, Excessive Mucous Production, Change in Mucous Color, Pain with Coughing, Other - Gastrointestinal Gastrointestinal: absent: As Per HPI, Abdominal Pain, Belching, Bloating, Change in Bowel Habits, Change in Stool Character, Coffee Ground Emesis, Constipation, Cramping, Diarrhea, Dyspepsia, Dysphagia, Early Satiety, Excessive Flatus, Fecal Incontinence, Heartburn, Hematemesis, Hematochezia, Loose Stools, Melena, Nausea, Odynophagia, Temesmus, Vomiting, Other - Genitourinary Genitourinary: absent: As Per HPI, Change in Urinary Stream, Difficulty Urinating, Dysuria, Flank Pain, Hematuria, Pyuria, Nocturia, Urinary Incontinence, Urinary Frequency, Urinary Hesitance, Urinary Urgency, Voiding Freq/Small Amts, Freq UTI, Hx Renal/Bladder Calculi, Hx /Renal Surgery, Bladder Distension, Other - Reproductive: Female Reproductive:Female: Post Menopausal - Menstruation Menstruation: Post Menopausal - Musculoskeletal Musculoskeletal: Abnormal Gait, Arthralgias, Muscle Weakness - Integumentary Integumentary: absent: As Per HPI, Acne, Alopecia, Bleeding Lesions, Change in Hair, Change in Nails, Change in Pigmentation, Changing Lesions, Dry Skin, Erythema, Furuncle, Hirsutism, Lesions, New Lesions, Non-Healing Lesions, Photosensitivity, Pruritus, Rash, Skin Pain, Skin Ulcer, Sores, Striae, Swelling , Unusual Bruising, Wounds, Jaundice, Other - Neurological Neurological: absent: As Per HPI, Abnormal Gait, Abnormal Hearing, Abnormal Movements, Abnormal Speech, Behavioral Changes, Burning Sensations, Confusion, Convulsions, Disequilibrium, Dizziness, Numbness, Focal Weakness, Frequent Falls , Headaches, Lack of Coordination, Loss of Vision, Memory Loss, Paresthesias, Radicular Pain, Restless Legs, Sensory Deficit, Syncope, Tingling, Tremor, Vertigo, Weakness, Other Visual Disturbances, Other - Psychiatric Psychiatric: absent: As Per HPI, Abnormal Sleep Pattern, Anhedonia, Anxiety, Auditory Hallucinations, Behavioral Changes, Change in Appetite, Change in Libido, Confusion, Depression, Difficulty Concentrating, Hallucinations, Homicidal Ideation, Hopelessness, Irritability, Memory Loss, Mood Swings, Panic Attacks, Paranoia, Suicidal Ideation, Visual Hallucinations, Tactile Hallucinations, Other - Endocrine Endocrine: Cold Intolorance - Hematologic/Lymphatic Hematologic: absent: As Per HPI, Easy Bleeding, Easy Bruising, Lymphadenopathy, Other Past Patient History - Infectious Disease Hx of Infectious Diseases: None - Tetanus Immunizations Tetanus Immunization: Unknown - Past Medical History & Family History Past Medical History?: Yes - Past Social History Smoking Status: Former Smoker - CARDIAC Hx Hypertension: Yes Hx Peripheral Edema: Yes - PULMONARY Hx Respiratory Disorders: Yes (SMOKED CIGARETTES SINCE 16 YRS OLD.CURRENTLY SMOKED 1/2 PPD) - HEENT Hx HEENT Problems: Yes (recently having blurred vision both eyes-CATARACTS) Hx Cataracts: Yes (BILATERAL BLURRY VISION) - ENDOCRINE/METABOLIC Hx Endocrine Disorders: Yes Hx Diabetes Mellitus Type 2: Yes - HEMATOLOGICAL/ONCOLOGICAL Hx Blood Disorders: Yes Other/Comment: SEPSIS 2NDARY TO UTI - INTEGUMENTARY Hx Dermatological Problems: Yes (MASD-IN BETWEEN GLUTEAL FOLDS SECONDARY TO INCONTINENCY) Other/Comment: IASD - MUSCULOSKELETAL/RHEUMATOLOGICAL Hx Falls: Yes - GASTROINTESTINAL Hx Gall Bladder Disease: Yes (CHOLEYCSTECTOMY) - GENITOURINARY/GYNECOLOGICAL Hx Genitourinary Disorders: Yes Hx Incontinence: Yes (urine/frequency) Hx Urinary Tract Infection: Yes Other/Comment: PYELONEPHRITIS - PSYCHIATRIC Hx Substance Use: No - SURGICAL HISTORY Hx Cholecystectomy: Yes - ANESTHESIA Hx Anesthesia: Yes Hx Anesthesia Reactions: No Hx Malignant Hyperthermia: No Meds Allergies/Adverse Reactions: Allergies Allergy/AdvReac Type Severity Reaction Status Date / Time egg Allergy RASH Verified 09/24/17 05:28 ORANGE Allergy RASH Verified 02/07/15 18:32 - Medications Medications: Current Medications Heparin Sodium (Porcine) (Heparin) 5,000 units SC Q12 [facility] Last Admin: 09/25/17 10:38 Dose: 5,000 units Azithromycin 500 mg/ Sodium (Chloride) 250 mls @ 250 mls/hr IVPB DAILY [facility] PRN Reason: Protocol Stop: 09/29/17 23:59 Last Admin: 09/24/17 06:16 Dose: 250 mls/hr Piperacillin Sod/Tazobactam Sod (Zosyn 2.25 Gm Iv Premix) 2.25 gm in 50 mls @ 100 mls/hr IVPB Q8H [facility] PRN Reason: Protocol Last Admin: 09/25/17 10:48 Dose: 100 mls/hr Vancomycin HCl 500 mg/ Sodium (Chloride) 100 mls @ 67 mls/hr IVPB Q24H [facility] PRN Reason: Protocol Stop: 09/29/17 10:31 Last Admin: 09/25/17 10:49 Dose: 67 mls/hr Dextrose/Sodium Chloride (Dextrose 5%/0.9% Ns 1000 Ml) 1,000 mls @ 75 mls/hr IV .[id number] ONE Stop: 09/26/17 00:18 Last Admin: 09/25/17 11:08 Dose: 75 mls/hr Pantoprazole Sodium (Protonix Ec Tab) 40 mg PO DAILY [facility] Last Admin: 09/25/17 10:38 Dose: 40 mg Physical Exam - Constitutional Appears: No Acute Distress, Chronically Ill - Head Exam Head Exam: ATRAUMATIC, NORMAL INSPECTION, NORMOCEPHALIC - Eye Exam Eye Exam: EOMI, Normal appearance, PERRL Pupil Exam: NORMAL ACCOMODATION, PERRL - ENT Exam ENT Exam: Mucous Membranes Moist, Normal Exam - Neck Exam Neck exam: Positive for: Normal Inspection - Respiratory Exam Respiratory Exam: Decreased Breath Sounds, NORMAL BREATHING PATTERN - Cardiovascular Exam Cardiovascular Exam: Tachycardia - GI/Abdominal Exam GI & Abdominal Exam: Diminished Bowel Sounds, Soft - Rectal Exam Rectal Exam: Deferred - Extremities Exam Extremities exam: Positive for: pedal edema - Back Exam Back exam: NORMAL INSPECTION - Neurological Exam Neurological exam: Alert, Oriented x3 - Psychiatric Exam Psychiatric exam: Normal Affect, Normal Mood - Skin Skin Exam: Dry, Intact, Normal Color, Warm Results - Vital Signs Recent Vital Signs: Last Vital Signs Temp 98.8 F 09/25/17 04:00 Pulse 95 H 09/25/17 07:20 Resp 26 H 09/25/17 04:00 BP 137/77 09/25/17 04:00 Pulse Ox 100 09/25/17 04:00 - Labs Result Diagrams: 09/25/17 06:21 09/25/17 06:21 Labs: Laboratory Results - last 24 hr 09/24/17 09/25/17 09/25/17 14:57 06:21 06:21 WBC RBC Hgb Hct MCV MCH MCHC RDW Plt Count MPV Neut % (Auto) Lymph % (Auto) Camp % (Auto) Eos % (Auto) Baso % (Auto) Neut # (Auto) Lymph # (Auto) Camp # (Auto) Eos # (Auto) Baso # (Auto) Neutrophils % (Manual) Band Neutrophils % Lymphocytes % (Manual) Monocytes % (Manual) Eosinophils % (Manual) Toxic Granulation Platelet Estimate Hypochromasia (manual) Poikilocytosis (manual Anisocytosis (manual) Sodium Potassium Chloride Carbon Dioxide Anion Gap BUN Creatinine Est GFR ( Amer) Est GFR (Non-Af Amer) POC Glucose (mg/dL) Random Glucose Calcium Phosphorus Magnesium Total Bilirubin AST ALT Alkaline Phosphatase Total Protein Albumin Globulin Albumin/Globulin Ratio Random Vancomycin 8.8 Ur L.pneumophila Ag Negative Mycoplasma pneumon IgM Negative 09/25/17 09/25/17 09/25/17 06:21 06:21 06:58 WBC 19.1 H RBC 3.32 L Hgb 9.5 L Hct 29.1 L MCV 87.6 MCH 28.5 MCHC 32.5 L RDW 15.5 H Plt Count 139 MPV 7.9 Neut % (Auto) 93.5 H Lymph % (Auto) 4.3 L Camp % (Auto) 2.0 Eos % (Auto) 0.1 Baso % (Auto) 0.1 Neut # (Auto) 17.8 H Lymph # (Auto) 0.8 L Camp # (Auto) 0.4 Eos # (Auto) 0.0 Baso # (Auto) 0.0 Neutrophils % (Manual) 79 H Band Neutrophils % 11 H* Lymphocytes % (Manual) 9 L Monocytes % (Manual) TEST NOT PERFORMED Eosinophils % (Manual) 1 Toxic Granulation Present Platelet Estimate Normal Hypochromasia (manual) Slight Poikilocytosis (manual Slight Anisocytosis (manual) Slight Sodium 136 Potassium 3.6 Chloride 104 Carbon Dioxide 23 Anion Gap 12 BUN 25 H Creatinine 1.4 H Est GFR ( Amer) 44 Est GFR (Non-Af Amer) 37 POC Glucose (mg/dL) 26 L* Random Glucose 22 L* D Calcium 7.4 L Phosphorus 3.3 Magnesium 1.5 L Total Bilirubin 0.5 AST 20 ALT 23 Alkaline Phosphatase 63 Total Protein 5.3 L Albumin 2.6 L Globulin 2.8 Albumin/Globulin Ratio 0.9 L Random Vancomycin Ur L.pneumophila Ag Mycoplasma pneumon IgM 09/25/17 07:05 WBC RBC Hgb Hct MCV MCH MCHC RDW Plt Count MPV Neut % (Auto) Lymph % (Auto) Camp % (Auto) Eos % (Auto) Baso % (Auto) Neut # (Auto) Lymph # (Auto) Camp # (Auto) Eos # (Auto) Baso # (Auto) Neutrophils % (Manual) Band Neutrophils % Lymphocytes % (Manual) Monocytes % (Manual) Eosinophils % (Manual) Toxic Granulation Platelet Estimate Hypochromasia (manual) Poikilocytosis (manual Anisocytosis (manual) Sodium Potassium Chloride Carbon Dioxide Anion Gap BUN Creatinine Est GFR ( Amer) Est GFR (Non-Af Amer) POC Glucose (mg/dL) 28 L* Random Glucose Calcium Phosphorus Magnesium Total Bilirubin AST ALT Alkaline Phosphatase Total Protein Albumin Globulin Albumin/Globulin Ratio Random Vancomycin Ur L.pneumophila Ag Mycoplasma pneumon IgM
--- NOTE | 2017-09-25 12:33 | CP.PCM.PN ---
Subjective - Date & Time of Evaluation Date of Evaluation: 09/25/17 Time of Evaluation: 12:00 - Subjective Subjective: dictated Objective - Vital Signs/Intake and Output Vital Signs (last 24 hours): Temp Pulse Resp BP Pulse Ox 98.8 F 95 H 26 H 137/77 100 09/25/17 04:00 09/25/17 07:20 09/25/17 04:00 09/25/17 04:00 09/25/17 04:00 Intake and Output: 09/25/17 09/25/17 06:59 18:59 Intake Total 825 Output Total 600 Balance 225 - Medications Medications: Current Medications Heparin Sodium (Porcine) (Heparin) 5,000 units SC Q12 [facility] Last Admin: 09/25/17 10:38 Dose: 5,000 units Azithromycin 500 mg/ Sodium (Chloride) 250 mls @ 250 mls/hr IVPB DAILY [facility] PRN Reason: Protocol Stop: 09/29/17 23:59 Last Admin: 09/25/17 11:00 Dose: 250 mls/hr Vancomycin HCl 500 mg/ Sodium (Chloride) 100 mls @ 67 mls/hr IVPB Q24H [facility] PRN Reason: Protocol Stop: 09/29/17 10:31 Last Admin: 09/25/17 10:49 Dose: 67 mls/hr Dextrose/Sodium Chloride (Dextrose 5%/0.9% Ns 1000 Ml) 1,000 mls @ 75 mls/hr IV .[id number] ONE Stop: 09/26/17 00:18 Last Admin: 09/25/17 11:08 Dose: 75 mls/hr Cefepime HCl (Maxipime Iv 2 Gm Premix) 2 gm in 100 mls @ 200 mls/hr IVPB Q8H [facility] PRN Reason: Protocol Stop: 09/30/17 13:01 Pantoprazole Sodium (Protonix Ec Tab) 40 mg PO DAILY [facility] Last Admin: 09/25/17 10:38 Dose: 40 mg - Labs Labs: 09/25/17 06:21 09/25/17 06:21 PT 14.6 SECONDS (9.7-12.2) H 09/24/17 00:10 INR 1.3 09/24/17 00:10 APTT 27 SECONDS (21-34) 09/24/17 00:10
[2017-09-25] MEDS: Cefepime IV 2 gm in Dextrose 2 GM/100 ML BAG IVPB SCH ×2 (13:29→21:31)
[2017-09-25] MEDS ORDERED: Glucagon Recombinant 1 mg Inj IM PRN (16:12)
--- NOTE | 2017-09-25 16:16 | CP.PCM.PN ---
Subjective - Date & Time of Evaluation Date of Evaluation: 09/25/17 Time of Evaluation: 11:40 - Subjective Subjective: patient seen and examined Much more awake and responsive Afebrile Complaining of cough Objective - Vital Signs/Intake and Output Vital Signs (last 24 hours): Temp Pulse Resp BP Pulse Ox 98.2 F 96 H 20 141/67 98 09/25/17 15:15 09/25/17 15:15 09/25/17 15:15 09/25/17 15:15 09/25/17 15:15 Intake and Output: 09/25/17 09/25/17 06:59 18:59 Intake Total 825 600 Output Total 600 400 Balance 225 200 - Medications Medications: Current Medications Dextrose (Dextrose 50% Inj) 0 ml IV STAT PRN; Protocol PRN Reason: Hypoglycemia Protocol Dextrose (Glutose 15) 0 gm PO ONCE PRN; Protocol PRN Reason: Hypoglycemia Protocol Glucagon (Glucagen Diagnostic Kit) 0 mg IM STAT PRN; Protocol PRN Reason: Hypoglycemia Protocol Heparin Sodium (Porcine) (Heparin) 5,000 units SC Q12 [facility] Last Admin: 09/25/17 10:38 Dose: 5,000 units Azithromycin 500 mg/ Sodium (Chloride) 250 mls @ 250 mls/hr IVPB DAILY [facility] PRN Reason: Protocol Stop: 09/29/17 23:59 Last Admin: 09/25/17 11:00 Dose: 250 mls/hr Dextrose/Sodium Chloride (Dextrose 5%/0.9% Ns 1000 Ml) 1,000 mls @ 75 mls/hr IV .[id number] ONE Stop: 09/26/17 00:18 Last Admin: 09/25/17 11:08 Dose: 75 mls/hr Cefepime HCl (Maxipime Iv 2 Gm Premix) 2 gm in 100 mls @ 200 mls/hr IVPB Q8H [facility] PRN Reason: Protocol Stop: 09/30/17 13:01 Last Admin: 09/25/17 13:29 Dose: 200 mls/hr Vancomycin/Sodium Chloride (Vancomycin 1 Gm/Ns 200 Ml) 1 gm in 200 mls @ 133.333 mls/hr IVPB Q24H [facility] PRN Reason: Protocol Stop: 10/01/17 12:01 Dextrose (Dextrose 5% In Water 1000 Ml) 1,000 mls @ 0 mls/hr IV .Q0M PRN; Protocol; Per Protocol PRN Reason: Hypoglycemia Protocol Pantoprazole Sodium (Protonix Ec Tab) 40 mg PO DAILY [facility] Last Admin: 09/25/17 10:38 Dose: 40 mg - Labs Labs: 09/25/17 06:21 09/25/17 06:21 PT 14.6 SECONDS (9.7-12.2) H 09/24/17 00:10 INR 1.3 09/24/17 00:10 APTT 27 SECONDS (21-34) 09/24/17 00:10 - Head Exam Head Exam: ATRAUMATIC - ENT Exam ENT Exam: Mucous Membranes Moist - Respiratory Exam Respiratory Exam: Rales, Rhonchi - Cardiovascular Exam Cardiovascular Exam: REGULAR RHYTHM - GI/Abdominal Exam GI & Abdominal Exam: Soft, Normal Bowel Sounds Assessment and Plan (1) Pneumonia Assessment & Plan: Continue antibiotics Follow-up lactate level IV fluids Follow-up culture and sensitivity Status: Acute (2) Severe sepsis Status: Acute (3) IKE (acute kidney injury) Status: Acute
[2017-09-25] MEDS: Dextrose 50% SYRINGE Inj (50 ml) IV PRN ×2 (16:20→21:10)
--- NOTE | 2017-09-25 18:25 | PN ---
Copied To: Brock Ponce MD Attending MD: Brock Ponce MD DATE: 09/25/2017 SUBJECTIVE: The patient is out of the ICU right now, but her sugars have dropped and nurse is aware of it, and they are monitoring. She says she feels slightly better, but her blood cultures last night came out for gram-positive cocci. She was on vancomycin, Zosyn, and Zithromax. PHYSICAL EXAMINATION: GENERAL: She is awake and alert. VITAL SIGNS: Right now her temp is 98.8, pulse is 95, blood pressure of 137/77, respirations are 26. HEENT: Head is atraumatic. NECK: Supple. LUNGS: Have coarse breath sounds. HEART: S1 and S2 are regular. ABDOMEN: Soft and nontender. No guarding. No rigidity present. EXTREMITIES: Have no edema, clubbing, or cyanosis. LABORATORY DATA: White count is 19.1 has increased, hemoglobin 9.5, hematocrit 29.1, platelet count is 139, it is dropping, but her bands are from 22 they are 11. ABG was done yesterday, which showed 7.33, CO2 was 46, but this was venous probably as O2 saturation was 33.8. Lactate level was 2.9 and her lactic acid had been down to 1, but her sugar is 22 right now and she did get some cranberry juice and it came up to 68 and she is on D5 fluid at this time according to the nurse. UA shows 53 wbc's, rbc's 7, vanco random was 8.8, so she got 500 of vancomycin today. Her blood cultures are positive for possible Streptococci. I would think of Strep pneumonia, pneumococcal pneumonia, and I have also send the urine for Strep pneumonia. I will also send the urine for strep pneumonia antigen, it was actually sent yesterday. At this time, I have changed the antibiotics to Maxipime and Zithromax. She is on 500 of vancomycin. I want to see her labs. Creatinine has become better from yesterday, it is 1.4 right now and I am giving Maxipime at a higher dose and we are awaiting for the mycoplasma titers also chest x-ray. She had abdomen and pelvic CT yesterday, which was significant for possible cystitis and urine culture is still pending. She has severe bandemia came in with acid septicemia, has acidosis and probably pneumonia, probably Streptococcus pneumonia, which probably we have to wait for the further ID and sensitivity and also to rule out endocarditis. We will change the vancomycin to 1 g daily and we will repeat the blood cultures tomorrow. We will follow. The patient remains acutely ill and also is hypoglycemic and she does need to be followed up closely. Brock Ponce MD
--- NOTE | 2017-09-25 19:23 | CP.PCM.PN ---
Subjective - Date & Time of Evaluation Date of Evaluation: 09/25/17 Time of Evaluation: 08:00 - Subjective Subjective: clinically same Objective - Vital Signs/Intake and Output Vital Signs (last 24 hours): Temp Pulse Resp BP Pulse Ox 98.2 F 97 H 20 141/67 98 09/25/17 15:15 09/25/17 17:00 09/25/17 15:15 09/25/17 15:15 09/25/17 15:15 Intake and Output: 09/25/17 09/26/17 18:59 06:59 Intake Total 600 Output Total 400 Balance 200 - Medications Medications: Current Medications Dextrose (Dextrose 50% Inj) 0 ml IV STAT PRN; Protocol PRN Reason: Hypoglycemia Protocol Last Admin: 09/25/17 16:20 Dose: 50 ml Dextrose (Glutose 15) 0 gm PO ONCE PRN; Protocol PRN Reason: Hypoglycemia Protocol Glucagon (Glucagen Diagnostic Kit) 0 mg IM STAT PRN; Protocol PRN Reason: Hypoglycemia Protocol Heparin Sodium (Porcine) (Heparin) 5,000 units SC Q12 [facility] Last Admin: 09/25/17 10:38 Dose: 5,000 units Azithromycin 500 mg/ Sodium (Chloride) 250 mls @ 250 mls/hr IVPB DAILY [facility] PRN Reason: Protocol Stop: 09/29/17 23:59 Last Admin: 09/25/17 11:00 Dose: 250 mls/hr Cefepime HCl (Maxipime Iv 2 Gm Premix) 2 gm in 100 mls @ 200 mls/hr IVPB Q8H [facility] PRN Reason: Protocol Stop: 09/30/17 13:01 Last Admin: 09/25/17 13:29 Dose: 200 mls/hr Vancomycin/Sodium Chloride (Vancomycin 1 Gm/Ns 200 Ml) 1 gm in 200 mls @ 133.333 mls/hr IVPB Q24H [facility] PRN Reason: Protocol Stop: 10/01/17 12:01 Dextrose (Dextrose 5% In Water 1000 Ml) 1,000 mls @ 0 mls/hr IV .Q0M PRN; Protocol; Per Protocol PRN Reason: Hypoglycemia Protocol Dextrose/Sodium Chloride (Dextrose 5%/0.9% Ns 1000 Ml) 1,000 mls @ 100 mls/hr IV .Q10H ONE Stop: 09/25/17 20:58 Pantoprazole Sodium (Protonix Ec Tab) 40 mg PO DAILY [facility] Last Admin: 09/25/17 10:38 Dose: 40 mg - Labs Labs: 09/25/17 06:21 09/25/17 06:21 PT 14.6 SECONDS (9.7-12.2) H 09/24/17 00:10 INR 1.3 09/24/17 00:10 APTT 27 SECONDS (21-34) 09/24/17 00:10 - Constitutional Appears: Non-toxic - Head Exam Head Exam: NORMAL INSPECTION - Eye Exam Eye Exam: Normal appearance - ENT Exam ENT Exam: Normal Exam - Neck Exam Neck Exam: Normal Inspection - Respiratory Exam Respiratory Exam: Decreased Breath Sounds - Cardiovascular Exam Cardiovascular Exam: REGULAR RHYTHM - GI/Abdominal Exam GI & Abdominal Exam: Diminished Bowel Sounds - Rectal Exam Rectal Exam: Deferred
[2017-09-26] MEDS: Dextrose 50% SYRINGE Inj (50 ml) IV PRN (00:01)
[2017-09-26] MEDS: Cefepime IV 2 gm in Dextrose 2 GM/100 ML BAG IVPB SCH ×3 (04:53→21:07)
[2017-09-26 06:43] LABS: BASO % 0.4 % (0.0-2.0); EOS # 0.1 K/uL (0.0-0.7); EOS % 1.5 % (0.0-4.0); HEMOGLOBIN 8.7 g/dL (11.0-16.0); LYMPH % 11.7 % (20.0-40.0); MEAN CELL VOLUME 87.6 fL (81.0-99.0); MEAN CORPUSCULAR HGB CONC 33.2 g/dL (33.0-37.0); MEAN PLATELET VOLUME 7.8 fL (7.2-11.7); MONO # 0.3 K/uL (0.0-0.8); MONO % 4.2 % (0.0-10.0); NEUT # 6.9 K/uL (1.8-7.0); NEUT % 82.2 % (50.0-75.0); RBC 2.98 Mil/uL (3.80-5.20); RED CELL DISTRIBUTION WIDTH 15.4 % (11.5-14.5); WHITE BLOOD COUNT 8.4 K/uL (4.8-10.8)
[2017-09-26 07:01] LABS: ALB/GLOB RATIO 0.9 (1.0-2.1); ALBUMIN 2.2 g/dL (3.5-5.0); CALCIUM 7.4 mg/dl (8.6-10.4)
--- NOTE | 2017-09-26 07:36 | CP.PCM.PN ---
Subjective - Date & Time of Evaluation Date of Evaluation: 09/26/17 Time of Evaluation: 07:35 - Subjective Subjective: PGY2- Progress note for Dr. Willam Kerr Patient was seen and examined at bedside in no acute distress. Patient reports feeling better today. She also states her breathing is better today. The patient says she had a normal BM today, denies blood in stool. Patient denies chest pain, palpitations, abdominal pain, dyspnea, coughing, wheezing, palpitations, nausea, vomiting, fevers, headaches, leg pain, and leg swelling. Objective - Vital Signs/Intake and Output Vital Signs (last 24 hours): Temp Pulse Resp BP Pulse Ox 98.0 F 75 20 122/60 98 09/26/17 00:00 09/26/17 00:00 09/26/17 00:00 09/26/17 00:00 09/26/17 00:00 - Medications Medications: Current Medications Dextrose (Dextrose 50% Inj) 0 ml IV STAT PRN; Protocol PRN Reason: Hypoglycemia Protocol Last Admin: 09/26/17 00:01 Dose: 50 ml Dextrose (Glutose 15) 0 gm PO ONCE PRN; Protocol PRN Reason: Hypoglycemia Protocol Glucagon (Glucagen Diagnostic Kit) 0 mg IM STAT PRN; Protocol PRN Reason: Hypoglycemia Protocol Heparin Sodium (Porcine) (Heparin) 5,000 units SC Q12 [facility] Last Admin: 09/25/17 21:31 Dose: 5,000 units Azithromycin 500 mg/ Sodium (Chloride) 250 mls @ 250 mls/hr IVPB DAILY [facility] PRN Reason: Protocol Stop: 09/29/17 23:59 Last Admin: 09/25/17 11:00 Dose: 250 mls/hr Cefepime HCl (Maxipime Iv 2 Gm Premix) 2 gm in 100 mls @ 200 mls/hr IVPB Q8H [facility] PRN Reason: Protocol Stop: 09/30/17 13:01 Last Admin: 09/26/17 04:53 Dose: 200 mls/hr Vancomycin/Sodium Chloride (Vancomycin 1 Gm/Ns 200 Ml) 1 gm in 200 mls @ 133.333 mls/hr IVPB Q24H [facility] PRN Reason: Protocol Stop: 10/01/17 12:01 Dextrose (Dextrose 5% In Water 1000 Ml) 1,000 mls @ 0 mls/hr IV .Q0M PRN; Protocol; Per Protocol PRN Reason: Hypoglycemia Protocol Dextrose (Dextrose 10% In Water) 1,000 mls @ 50 mls/hr IV .Q20H [facility] Last Admin: 09/26/17 03:53 Dose: Not Given Pantoprazole Sodium (Protonix Ec Tab) 40 mg PO DAILY [facility] Last Admin: 09/25/17 10:38 Dose: 40 mg - Labs Labs: 09/26/17 06:34 09/26/17 06:34 PT 14.6 SECONDS (9.7-12.2) H 09/24/17 00:10 INR 1.3 09/24/17 00:10 APTT 27 SECONDS (21-34) 09/24/17 00:10 - Constitutional Appears: No Acute Distress - Head Exam Head Exam: ATRAUMATIC, NORMAL INSPECTION - Eye Exam Eye Exam: EOMI, Normal appearance - ENT Exam ENT Exam: Mucous Membranes Moist - Respiratory Exam Respiratory Exam: Decreased Breath Sounds, Prolonged Expiratory Phase, Wheezes. absent: Clear to Ausculation Bilateral, Rales, Rhonchi - Cardiovascular Exam Cardiovascular Exam: REGULAR RHYTHM, +S1, +S2 - GI/Abdominal Exam GI & Abdominal Exam: Soft, Normal Bowel Sounds. absent: Tenderness Additional comments: obese - Extremities Exam Extremities Exam: Normal Inspection. absent: Pedal Edema, Tenderness - Neurological Exam Neurological Exam: Alert, Awake - Psychiatric Exam Psychiatric exam: Normal Affect, Normal Mood - Skin Skin Exam: Dry, Intact, Normal Color, Warm Assessment and Plan - Assessment and Plan (Free Text) Plan: Patient is a 77 year old female with a history of DM, HTN, peripheral edema, and arthritis, who presented to the ED with abdominal pain, nausea and vomiting. Pneumonia - Likely aspiration pneumonia - CXR: right lower lung infiltrate - Abdominal/pelvic CT: right lower lobe consolidation - Blood cx: positive strep pneumo - Mycoplasma pneumo, Legionella: negative - Strep pneumo: f/u - ID consulted, Dr. Ponce; help appreciated - Medications: - Azithromycin 500mg IVqd - Cefepime 1g IV Q8h - Vanco 1g IV Q24h Sepsis - Likely secondary to pneumonia - Blood cx: positive strep pneumo - Lactate: 2.1--> 2.9-> 1.0 - Echo: f/u to r/o endocarditis - ID consulted, Dr. Ponce; help appreciated - Medications: - Azithromycin 500mg IVqd - Cefepime 1g IV Q8h - Vanco 1g IV Q24h Abdominal pain, nausea, vomiting - Abdominal/pelvic CT: diffuse wall thickening of the urinary bladder, cystitis ? right lower lobe consolidation; superior compression deformities of L2 and L3 - Zofran 4mg IV Q6h prn for n/v Hypoglycemic Hx of DM - Accuchecks - Hypoglycemia protocol - Endocrinology consulted, Dr. Lopez; help appreciated - D10W @100mls/hr until glucose is 140--> will switch to D5-1/2NS @100mls/hr - Continue to monitor Anemia - Hgb 8.7 - Stool occult: f/u - Possibly due to dilution, continue to monitor Prophylaxis - Protonix 40mg PO daily - Heparin 5000u SC Q12h - PT/OT Case discussed with Dr. Kerr. Management per Dr. Willam Kerr.
[2017-09-26] MEDS: Pantoprazole 40 mg EC Tab PO SCH (09:21)
[2017-09-26] MEDS: Azithromycin 500 MG in Sodium Chloride 0.9% 250 ML IVPB SCH (09:21)
[2017-09-26] MEDS ORDERED: Albuterol-Ipratrop 3 mg / 0.5 (3 ml) UD INH ONE (11:45)
--- NOTE | 2017-09-26 12:10 | CP.PCM.PN ---
Subjective - Date & Time of Evaluation Date of Evaluation: 09/26/17 Time of Evaluation: 09:50 - Subjective Subjective: patient seen and examined Awake and responsive No shortness of breath or cough Afebrile Objective - Vital Signs/Intake and Output Vital Signs (last 24 hours): Temp Pulse Resp BP Pulse Ox 99.2 F 89 20 128/61 100 09/26/17 08:10 09/26/17 08:10 09/26/17 08:10 09/26/17 08:10 09/26/17 08:10 - Medications Medications: Current Medications Dextrose (Dextrose 50% Inj) 0 ml IV STAT PRN; Protocol PRN Reason: Hypoglycemia Protocol Last Admin: 09/26/17 00:01 Dose: 50 ml Dextrose (Glutose 15) 0 gm PO ONCE PRN; Protocol PRN Reason: Hypoglycemia Protocol Glucagon (Glucagen Diagnostic Kit) 0 mg IM STAT PRN; Protocol PRN Reason: Hypoglycemia Protocol Heparin Sodium (Porcine) (Heparin) 5,000 units SC Q12 [facility] Last Admin: 09/26/17 09:21 Dose: 5,000 units Azithromycin 500 mg/ Sodium (Chloride) 250 mls @ 250 mls/hr IVPB DAILY [facility] PRN Reason: Protocol Stop: 09/29/17 23:59 Last Admin: 09/26/17 09:21 Dose: 250 mls/hr Cefepime HCl (Maxipime Iv 2 Gm Premix) 2 gm in 100 mls @ 200 mls/hr IVPB Q8H [facility] PRN Reason: Protocol Stop: 09/30/17 13:01 Last Admin: 09/26/17 04:53 Dose: 200 mls/hr Vancomycin/Sodium Chloride (Vancomycin 1 Gm/Ns 200 Ml) 1 gm in 200 mls @ 133.333 mls/hr IVPB Q24H [facility] PRN Reason: Protocol Stop: 10/01/17 12:01 Dextrose (Dextrose 5% In Water 1000 Ml) 1,000 mls @ 0 mls/hr IV .Q0M PRN; Protocol; Per Protocol PRN Reason: Hypoglycemia Protocol Dextrose (Dextrose 10% In Water) 1,000 mls @ 50 mls/hr IV .Q20H [facility] Last Admin: 09/26/17 03:53 Dose: Not Given Ondansetron HCl (Zofran Inj) 4 mg IVP Q6H PRN PRN Reason: Nausea/Vomiting Pantoprazole Sodium (Protonix Ec Tab) 40 mg PO DAILY [facility] Last Admin: 09/26/17 09:21 Dose: 40 mg - Labs Labs: 09/26/17 06:34 09/26/17 06:34 PT 14.6 SECONDS (9.7-12.2) H 09/24/17 00:10 INR 1.3 09/24/17 00:10 APTT 27 SECONDS (21-34) 09/24/17 00:10 - Head Exam Head Exam: ATRAUMATIC, NORMOCEPHALIC - ENT Exam ENT Exam: Mucous Membranes Moist - Neck Exam Neck Exam: Normal Inspection - Respiratory Exam Respiratory Exam: Decreased Breath Sounds - Cardiovascular Exam Cardiovascular Exam: REGULAR RHYTHM - GI/Abdominal Exam GI & Abdominal Exam: Soft, Normal Bowel Sounds Assessment and Plan (1) Pneumonia Status: Acute (2) Severe sepsis Status: Acute (3) IKE (acute kidney injury) Status: Acute
[2017-09-26] MEDS: Vancomycin 1 gm/NS 200 ml 1 GM/200 ML BAG IVPB SCH (12:59)
[2017-09-26 14:19] LABS: BASO % 0.4 % (0.0-2.0); EOS # 0.1 K/uL (0.0-0.7); EOS % 1.5 % (0.0-4.0); HEMOGLOBIN 9.8 g/dL (11.0-16.0); LYMPH # 1.2 K/uL (1.0-4.3); LYMPH % 15.3 % (20.0-40.0); MEAN CELL VOLUME 86.9 fL (81.0-99.0); MEAN CORPUSCULAR HEMOGLOBIN 28.9 pg (27.0-31.0); MEAN CORPUSCULAR HGB CONC 33.3 g/dL (33.0-37.0); MONO # 0.3 K/uL (0.0-0.8); MONO % 4.1 % (0.0-10.0); NEUT # 6.1 K/uL (1.8-7.0); NEUT % 78.7 % (50.0-75.0); RBC 3.38 Mil/uL (3.80-5.20); RED CELL DISTRIBUTION WIDTH 15.2 % (11.5-14.5); WHITE BLOOD COUNT 7.7 K/uL (4.8-10.8)
[2017-09-26] MEDS ORDERED: Potassium Chloride 20 mEq ER Tab PO ONE (15:00)
[2017-09-26 15:21] LABS: % IRON SATURATION 5.6 (20-55)
--- NOTE | 2017-09-26 17:01 | CP.PCM.PN ---
Subjective - Date & Time of Evaluation Date of Evaluation: 09/26/17 Time of Evaluation: 01:45 - Subjective Subjective: dictated Objective - Vital Signs/Intake and Output Vital Signs (last 24 hours): Temp Pulse Resp BP Pulse Ox 98.9 F 90 20 117/57 L 98 09/26/17 16:00 09/26/17 16:00 09/26/17 16:00 09/26/17 16:00 09/26/17 16:00 Intake and Output: 09/26/17 09/26/17 06:59 18:59 Intake Total 1800 Output Total 700 Balance 1100 - Medications Medications: Current Medications Dextrose (Dextrose 50% Inj) 0 ml IV STAT PRN; Protocol PRN Reason: Hypoglycemia Protocol Last Admin: 09/26/17 00:01 Dose: 50 ml Dextrose (Glutose 15) 0 gm PO ONCE PRN; Protocol PRN Reason: Hypoglycemia Protocol Glucagon (Glucagen Diagnostic Kit) 0 mg IM STAT PRN; Protocol PRN Reason: Hypoglycemia Protocol Heparin Sodium (Porcine) (Heparin) 5,000 units SC Q12 [facility] Last Admin: 09/26/17 09:21 Dose: 5,000 units Cefepime HCl (Maxipime Iv 2 Gm Premix) 2 gm in 100 mls @ 200 mls/hr IVPB Q8H [facility] PRN Reason: Protocol Stop: 09/30/17 13:01 Last Admin: 09/26/17 13:01 Dose: 200 mls/hr Vancomycin/Sodium Chloride (Vancomycin 1 Gm/Ns 200 Ml) 1 gm in 200 mls @ 133.333 mls/hr IVPB Q24H [facility] PRN Reason: Protocol Stop: 10/01/17 12:01 Last Admin: 09/26/17 12:59 Dose: 133.333 mls/hr Dextrose (Dextrose 5% In Water 1000 Ml) 1,000 mls @ 0 mls/hr IV .Q0M PRN; Protocol; Per Protocol PRN Reason: Hypoglycemia Protocol Dextrose (Dextrose 10% In Water) 1,000 mls @ 50 mls/hr IV .Q20H [facility] Last Admin: 09/26/17 03:53 Dose: Not Given Dextrose (Dextrose 10% In Water) 1,000 mls @ 100 mls/hr IV .Q10H [facility] Last Admin: 09/26/17 14:24 Dose: Not Given Ondansetron HCl (Zofran Inj) 4 mg IVP Q6H PRN PRN Reason: Nausea/Vomiting Pantoprazole Sodium (Protonix Ec Tab) 40 mg PO DAILY [facility] Last Admin: 09/26/17 09:21 Dose: 40 mg - Labs Labs: 09/26/17 14:01 09/26/17 06:34 PT 14.6 SECONDS (9.7-12.2) H 09/24/17 00:10 INR 1.3 09/24/17 00:10 APTT 27 SECONDS (21-34) 09/24/17 00:10
--- NOTE | 2017-09-26 19:10 | CON ---
DATE: 09/26/2017 ENDOCRINOLOGY CONSULT LOCATION: In room 552. HISTORY OF PRESENT ILLNESS: This is a 77-year-old female with known history of type 2 diabetes, on oral hypoglycemic therapy, taking Amaryl at 4 mg daily, who presented here with nausea, vomiting and upper abdominal pain and is now being referred for diabetic evaluation because of extremes of glycemic fluctuations with marked hypoglycemia as noted thereof. She has Dextrose D10W infusion ongoing at this time as noted. PAST MEDICAL HISTORY: As mentioned above history of type 2 diabetes, currently on the oral hypoglycemic therapy as mentioned, history of hypertension and dyslipidemia, history of coronary artery disease on previous admissions for congestive heart failure, history of diffuse osteoarthritis. She also has a prior cholecystectomy for underlying cholelithiasis. FAMILY HISTORY: Positive for diabetes and hypertension. SOCIAL HISTORY: The patient has a supportive family. She is a current assisted resident at the [facility]. No known substance use. REVIEW OF SYSTEMS: As mentioned above. Admits to generalized body weakness with episodic bouts of dizziness and lightheadedness worst on the day of admission. Also admits to occasional bifrontal headaches. No precordial chest pains, but admits to pleuritic pain, especially in the lower chest area. Admits to occasional productive cough. Also admits to episodic shortness of breath, especially on exertion. Her oral intake has been variable with nausea, dyspepsia and supervening vomiting and diffuse upper abdominal pain. No recent alterations of bowel or urinary patterns. PHYSICAL EXAMINATION: GENERAL: This is an average-built female in no apparent distress. VITAL SIGNS: Blood pressure initially of 62/34, pulse of 100 beats per minute and regular, temperature 99, respirations 20. Height is 5 feet 3 inches. Weight is 195 pounds. HEENT: Head normocephalic. Eyes anicteric with pink conjunctivae. Funduscopy not possible at this time. Ears, nose, and throat otherwise normal. NECK: Supple. Thyroid gland is normal in size. No carotid bruits or cervical adenopathy. CARDIOPULMONARY: Some adynamic precordium. S1 and S2 is rapid and regular. LUNGS: Shows scattered rhonchi. ABDOMEN: Flat, soft with positive bowel sounds. EXTREMITIES: No peripheral edema. Pulses are +2 bilaterally. LABORATORY DATA: Her chemistries now showed a BUN of 15, sodium 136, potassium 3.1, chloride 108, CO2 of 21, glucose 79, creatinine 1.1. Her glucose levels last night dropped to 40 and 45 mg/dL. 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 ASSESSMENT: This is a 77-year-old female with marked symptomatic hypoglycemia with associated neuroglycopenic and hyperadrenergic manifestations related to the same in a patient with known history of type 2 diabetes, previously on oral hypoglycemic therapy, given up until this admission as noted. Moreover, she has supervening bacteremia and came in with septic shock and this is also contributing factor to hypoglycemic episodes as noted thereof. Moreover, her oral intake has been quite variable and suboptimal as per the nursing staff as noted. PLAN OF MANAGEMENT: We will continue the Dextrose infusion given as D10W running at 50 mL per hour as ordered and observe the glycemic fluctuations thereof. As the glucose values improve and go at least above 140, then we can safely switch her over to D5 and half normal saline with potassium supplementation as indicated. We will obtain baseline thyroid studies and a serum cortisol level as ordered and obtain serial chemistries and supplement accordingly as needed. We will hold off the resumption of her oral hypoglycemic therapy at this time. We will follow. Gabbi Lopez MD
[2017-09-26] MEDS ORDERED: Potassium Chloride 20 mEq ER Tab PO STA (19:53)
--- NOTE | 2017-09-26 20:13 | CP.PCM.PN ---
Subjective - Date & Time of Evaluation Date of Evaluation: 09/26/17 Time of Evaluation: 08:00 - Subjective Subjective: clinically same Objective - Vital Signs/Intake and Output Vital Signs (last 24 hours): Temp Pulse Resp BP Pulse Ox 98.9 F 79 20 117/57 L 98 09/26/17 16:00 09/26/17 18:17 09/26/17 16:00 09/26/17 16:00 09/26/17 16:00 Intake and Output: 09/26/17 09/27/17 18:59 06:59 Intake Total 2000 400 Output Total 700 Balance 1300 400 - Medications Medications: Current Medications Dextrose (Dextrose 50% Inj) 0 ml IV STAT PRN; Protocol PRN Reason: Hypoglycemia Protocol Last Admin: 09/26/17 00:01 Dose: 50 ml Dextrose (Glutose 15) 0 gm PO ONCE PRN; Protocol PRN Reason: Hypoglycemia Protocol Glucagon (Glucagen Diagnostic Kit) 0 mg IM STAT PRN; Protocol PRN Reason: Hypoglycemia Protocol Heparin Sodium (Porcine) (Heparin) 5,000 units SC Q12 [facility] Last Admin: 09/26/17 09:21 Dose: 5,000 units Cefepime HCl (Maxipime Iv 2 Gm Premix) 2 gm in 100 mls @ 200 mls/hr IVPB Q8H [facility] PRN Reason: Protocol Stop: 09/30/17 13:01 Last Admin: 09/26/17 13:01 Dose: 200 mls/hr Vancomycin/Sodium Chloride (Vancomycin 1 Gm/Ns 200 Ml) 1 gm in 200 mls @ 133.333 mls/hr IVPB Q24H [facility] PRN Reason: Protocol Stop: 10/01/17 12:01 Last Admin: 09/26/17 12:59 Dose: 133.333 mls/hr Dextrose (Dextrose 5% In Water 1000 Ml) 1,000 mls @ 0 mls/hr IV .Q0M PRN; Protocol; Per Protocol PRN Reason: Hypoglycemia Protocol Dextrose (Dextrose 10% In Water) 1,000 mls @ 50 mls/hr IV .Q20H [facility] Last Admin: 09/26/17 03:53 Dose: Not Given Dextrose (Dextrose 10% In Water) 1,000 mls @ 100 mls/hr IV .Q10H [facility] Last Admin: 09/26/17 20:02 Dose: 100 mls/hr Ondansetron HCl (Zofran Inj) 4 mg IVP Q6H PRN PRN Reason: Nausea/Vomiting Pantoprazole Sodium (Protonix Ec Tab) 40 mg PO DAILY [facility] Last Admin: 09/26/17 09:21 Dose: 40 mg - Labs Labs: 09/26/17 14:01 09/26/17 06:34 PT 14.6 SECONDS (9.7-12.2) H 09/24/17 00:10 INR 1.3 09/24/17 00:10 APTT 27 SECONDS (21-34) 09/24/17 00:10 - Constitutional Appears: Well - Head Exam Head Exam: ATRAUMATIC, NORMAL INSPECTION, NORMOCEPHALIC - Eye Exam Eye Exam: EOMI, Normal appearance, PERRL Pupil Exam: NORMAL ACCOMODATION, PERRL - ENT Exam ENT Exam: Mucous Membranes Moist, Normal Exam - Neck Exam Neck Exam: Full ROM, Normal Inspection. absent: Lymphadenopathy - Respiratory Exam Respiratory Exam: Decreased Breath Sounds - Cardiovascular Exam Cardiovascular Exam: REGULAR RHYTHM, +S1, +S2 - GI/Abdominal Exam GI & Abdominal Exam: Soft, Diminished Bowel Sounds - Rectal Exam Rectal Exam: Deferred
--- NOTE | 2017-09-26 21:48 | PN ---
Copied To: Brock Ponce MD Attending MD: Brock Ponce MD DATE: 09/26/2017 INFECTIOUS DISEASE FOLLOWUP SUBJECTIVE: Patient was awake and alert. She was still under multiple covers. She said she still feels cold, and her blood cultures came out positive for Strep pneumoniae as suspected, and I have placed her in droplet precautions at this time. She had a normal BM today. She still looks sick, but she is more awake. No shortness of breath, coughing a little. No wheezing present. No palpitations. No nausea. No vomiting. No fevers ____, but she is still cold and she was shaking and I asked her if she has any Parkinson's. She says, "no." It is because she is feeling cold and still has chills. PHYSICAL EXAMINATION: VITAL SIGNS: T-max was 98 today, pulse 75, blood pressure 122/60, respirations are 20, and saturations 98%. HEAD: Atraumatic, normocephalic. NECK: Supple. LUNGS: Had bilaterally some wheezing present. Decreased breath sounds. HEART: S1, S2 regular. ABDOMEN: Soft, nontender. No guarding. No rigidity present. EXTREMITIES: Have no edema, and she was under multiple covers. LABORATORY DATA: Labs are noted. Labs show white count today was 7.7; hemoglobin 9.8; hematocrit 29.4; platelet count is 116, still low. Chemistry shows her potassium was 3.1. She was supplemented with potassium and her serology came out negative for Legionella as well as mycoplasma, so I will discontinue the Zithromax at this time, she is on vancomycin and Maxipime. We will keep the double coverage at this time as she really looks acutely ill and the sensitivity of the organisms of Streptococcus pneumoniae is not still available and I want to make sure we did an echocardiogram. She did have a CT scan when she came in and showed a large right lower lobe with air bronchograms, small left pleural effusion, minimal left basilar dependent atelectasis, coronary vessel calcification. Patient appears to be status post left mastectomy. So, at this time, the patient is on vancomycin and Maxipime, and we will continue present treatment and isolation, and we will follow. She also has history of diabetes mellitus, and her sugars were running low, hence she is on D5W before and then switched back to half normal saline. Need to monitor the fluid intake as she is also on IV antibiotics. To continue with deep venous thrombosis prophylaxis and we will follow. I repeated the blood cultures today to see if bacteremia is clearing, and she has been on antibiotics since 09/24/2017. Today is the third day of her antibiotics. Echocardiogram was done yesterday, results of which are pending. Brock Ponce MD
--- NOTE | 2017-09-26 22:21 | PN ---
Copied To: Gabbi Lopez MD Attending MD: Gabbi Lopez MD DATE: 09/26/2017 ENDO FOLLOWUP NOTE LOCATION: Room 552. SUBJECTIVE: This is a 77-year-old female, currently undergoing IV antibiotic management for acute bilateral pneumonitis and is also being followed closely for metabolic management because of extremes of glycemic fluctuations as noted thereof. She actually presented here with septic shock with underlying bacteremia with ongoing IV antibiotic management also as given. Her glucose values today have ranged from 67 to 71 and 87 mg/dL. LABORATORY DATA: Her latest chemistries showed a BUN of 15, sodium 136, potassium 3.1, chloride 108, CO2 of 21, glucose 79, and creatinine 1.1. ASSESSMENT: This is a 77-year-old female with known history of type-2 diabetes, previously on oral hypoglycemic therapy, presenting here with bacteremia and septic shock and receiving ongoing IV antibiotic management and is now being followed closely for metabolic management. She has persistent symptomatic hypoglycemia with associated neuroglycopenic and hyperadrenergic manifestations related to the same. She also has persistent suboptimal meal portions and actually needs feeding assistance as per the nursing staff. This will also contribute to the lack of substrate concomitant with the recent intake of oral hypoglycemic therapy as noted. Moreover, the intercurrent bacteremia will also contribute to the aforementioned symptomatic hypoglycemia as noted. PLAN OF MANAGEMENT: We will change the IV hydration to D10W infusion running at 100 mL per hour, and we will follow very closely her glucose monitoring, and after glucose levels improve to at least over 140, then can safely switch her back to D5 and half normal saline with potassium supplementation as indicated. We will obtain serial chemistries and supplement accordingly as needed. We will follow and advised accordingly. Gabib Lopez MD
--- NOTE | 2017-09-26 23:18 | CARD ---
APPROVED REPORT Date of service: 09/25/2017 EXAM: Two-dimensional and M-mode echocardiogram with Doppler and color Doppler. Other Information Quality : TDSRhythm : INDICATION Peripheral Edema Infection:Rule out subacute bacterial endocarditis RISK FACTORS Hypertension Diabetes 2D DIMENSIONS IVSd1.1 (0.7-1.1cm)LVDd3.9 (3.9-5.9cm) PWd1.0 (0.7-1.1cm)LVDs2.3 (2.5-4.0cm) FS (%) 39.9 %LVEF (%)71.1 (>50%) M-Mode DIMENSIONS Left Atrium (MM)2.77 (2.5-4.0cm)IVSd1.15 (0.7-1.1cm) Aortic Root3.21 (2.2-3.7cm)LVDd3.59 (4.0-5.6cm) Aortic Cusp Exc.2.05 (1.5-2.0cm)PWd1.00 (0.7-1.1cm) FS (%) 46 %LVDs1.93 (2.0-3.8cm) LVEF (%)79 (>50%) Mitral Valve MV E Eebukcyi91.3cm/sMV A Vmmjgvhr21.7cm/sE/A ratio1.0 TDI E/Lateral E'0.0E/Medial E'0.0 Tricuspid Valve TR Peak [id number]/sTR Peak [id number] LEFT VENTRICLE The left ventricle is normal size. There is normal left ventricular wall thickness. Left ventricle systolic function is normal. The Ejection Fraction is >70%. There is normal LV segmental wall motion. The left ventricular diastolic function is normal. RIGHT VENTRICLE The right ventricle is normal size. There is normal right ventricular wall thickness. The right ventricular systolic function is normal. ATRIA The left atrium size is normal. The right atrium size is normal. The interatrial septum is intact with no evidence for an atrial septal defect. AORTIC VALVE The aortic valve is normal in structure. No aortic regurgitation is present. There is no aortic valvular stenosis. MITRAL VALVE The mitral valve is normal in structure. There is no evidence of mitral valve prolapse. There is no mitral valve stenosis. Mitral regurgitation is trace. TRICUSPID VALVE The tricuspid valve is normal in structure. There is mild tricuspid regurgitation. Right ventricular systolic pressure is estimated at 50-60 mmHg. There is mild pulmonary hypertension. PULMONIC VALVE The pulmonic valve is not well visualized. There is trace pulmonic valvular regurgitation. GREAT VESSELS The aortic root is normal in size. PERICARDIAL EFFUSION There is no significant pericardial effusion. <Conclusion> Left ventricle systolic function is normal. The Ejection Fraction is >70%. No aortic regurgitation is present. Mitral regurgitation is trace. There is mild tricuspid regurgitation. There is mild pulmonary hypertension. There is trace pulmonic valvular regurgitation.
[2017-09-27] MEDS: Cefepime IV 2 gm in Dextrose 2 GM/100 ML BAG IVPB SCH ×3 (04:26→21:10)
[2017-09-27 07:52] LABS: BASO % 0.4 % (0.0-2.0); EOS # 0.1 K/uL (0.0-0.7); HEMOGLOBIN 8.7 g/dL (11.0-16.0); LYMPH # 0.7 K/uL (1.0-4.3); LYMPH % 11.4 % (20.0-40.0); MEAN CELL VOLUME 87.1 fL (81.0-99.0); MEAN CORPUSCULAR HEMOGLOBIN 29.2 pg (27.0-31.0); MEAN CORPUSCULAR HGB CONC 33.5 g/dL (33.0-37.0); MEAN PLATELET VOLUME 7.6 fL (7.2-11.7); MONO # 0.5 K/uL (0.0-0.8); MONO % 8.2 % (0.0-10.0); NEUT # 5.1 K/uL (1.8-7.0); RED CELL DISTRIBUTION WIDTH 15.3 % (11.5-14.5); WHITE BLOOD COUNT 6.5 K/uL (4.8-10.8)
[2017-09-27 08:09] LABS: ALBUMIN 2.4 g/dL (3.5-5.0); ALT/SGPT 31 U/L (9-52); AST/SGOT 13 U/L (14-36); BLOOD UREA NITROGEN 10 mg/dL (7-17); CALCIUM 7.8 mg/dl (8.6-10.4); GFR AFRICAN-AMERICAN > 60; GFR NON-AFRICAN AMERICAN > 60
[2017-09-27 08:52] LABS: T4 5.79 ug/dL (5.5-11.0)
[2017-09-27] MEDS: Pantoprazole 40 mg EC Tab PO SCH (09:00)
--- NOTE | 2017-09-27 10:08 | CP.PCM.PN ---
Subjective - Date & Time of Evaluation Date of Evaluation: 09/27/17 Time of Evaluation: 10:05 - Subjective Subjective: PGY-[address] Meggan Kerr's Service Patient seen and examined at bedside. Per nursing no acute events occurred overnight. Patient does reports some chills and subjective fevers today upon examination. Patient denies any chest pain ,shortness of breath, nausea, vomiting, abdominal pain or any other complaints. Objective - Vital Signs/Intake and Output Vital Signs (last 24 hours): Temp Pulse Resp BP Pulse Ox 98.4 F 80 18 116/65 95 09/27/17 08:00 09/27/17 08:00 09/27/17 08:00 09/27/17 08:00 09/27/17 08:00 Intake and Output: 09/27/17 09/27/17 06:59 18:59 Intake Total 1200 Output Total 800 Balance 400 - Medications Medications: Current Medications Dextrose (Dextrose 50% Inj) 0 ml IV STAT PRN; Protocol PRN Reason: Hypoglycemia Protocol Last Admin: 09/26/17 00:01 Dose: 50 ml Dextrose (Glutose 15) 0 gm PO ONCE PRN; Protocol PRN Reason: Hypoglycemia Protocol Glucagon (Glucagen Diagnostic Kit) 0 mg IM STAT PRN; Protocol PRN Reason: Hypoglycemia Protocol Heparin Sodium (Porcine) (Heparin) 5,000 units SC Q12 [facility] Last Admin: 09/27/17 09:00 Dose: 5,000 units Cefepime HCl (Maxipime Iv 2 Gm Premix) 2 gm in 100 mls @ 200 mls/hr IVPB Q8H [facility] PRN Reason: Protocol Stop: 09/30/17 13:01 Last Admin: 09/27/17 04:26 Dose: 200 mls/hr Vancomycin/Sodium Chloride (Vancomycin 1 Gm/Ns 200 Ml) 1 gm in 200 mls @ 133.333 mls/hr IVPB Q24H [facility] PRN Reason: Protocol Stop: 10/01/17 12:01 Last Admin: 09/26/17 12:59 Dose: 133.333 mls/hr Dextrose (Dextrose 5% In Water 1000 Ml) 1,000 mls @ 0 mls/hr IV .Q0M PRN; Protocol; Per Protocol PRN Reason: Hypoglycemia Protocol Dextrose (Dextrose 10% In Water) 1,000 mls @ 50 mls/hr IV .Q20H [facility] Last Admin: 09/26/17 03:53 Dose: Not Given Dextrose (Dextrose 10% In Water) 1,000 mls @ 100 mls/hr IV .Q10H [facility] Last Admin: 09/27/17 08:59 Dose: 100 mls/hr Potassium Chloride (Potassium Chloride 20 Meq/100 Ml) 20 meq in 100 mls @ 50 mls/hr IVPB ONCE ONE Stop: 09/27/17 11:32 Last Admin: 09/27/17 09:57 Dose: 50 mls/hr Potassium Chloride (Potassium Chloride 20 Meq/100 Ml) 20 meq in 100 mls @ 50 mls/hr IVPB ONCE ONE Stop: 09/27/17 13:29 Ondansetron HCl (Zofran Inj) 4 mg IVP Q6H PRN PRN Reason: Nausea/Vomiting Pantoprazole Sodium (Protonix Ec Tab) 40 mg PO DAILY [facility] Last Admin: 09/27/17 09:00 Dose: 40 mg - Labs Labs: 09/27/17 07:43 09/27/17 07:43 PT 14.6 SECONDS (9.7-12.2) H 09/24/17 00:10 INR 1.3 09/24/17 00:10 APTT 27 SECONDS (21-34) 09/24/17 00:10 - Head Exam Head Exam: ATRAUMATIC, NORMAL INSPECTION, NORMOCEPHALIC - Eye Exam Eye Exam: EOMI, Normal appearance, PERRL. absent: Periorbital tenderness Pupil Exam: NORMAL ACCOMODATION, PERRL. absent: Irregular, Unequal - ENT Exam ENT Exam: Mucous Membranes Moist, Normal Exam - Neck Exam Neck Exam: Normal Inspection - Respiratory Exam Respiratory Exam: Clear to Ausculation Bilateral, NORMAL BREATHING PATTERN. absent: Prolonged Expiratory Phase, Respiratory Distress - Cardiovascular Exam Cardiovascular Exam: REGULAR RHYTHM, +S1, +S2 - GI/Abdominal Exam GI & Abdominal Exam: Soft, Normal Bowel Sounds - Neurological Exam Neurological Exam: Alert, Awake, CN II-XII Intact, Oriented x3 - Psychiatric Exam Psychiatric exam: Normal Affect, Normal Mood - Skin Skin Exam: Dry, Intact Assessment and Plan - Assessment and Plan (Free Text) Plan: Patient is a 77 year old female with a history of DM, HTN, peripheral edema, and arthritis, who presented to the ED with abdominal pain, nausea and vomiting. Pneumonia - Likely aspiration pneumonia - CXR: right lower lung infiltrate - Abdominal/pelvic CT: right lower lobe consolidation - Blood cx: positive strep pneumo - Mycoplasma pneumo, Legionella: negative - Strep pneumo positive on blood culture - ID consulted, Dr. Ponce; help appreciated - Medications: - Azithromycin 500mg IVqd - Cefepime 1g IV Q8h - Vanco 1g IV Q24h Sepsis - Likely secondary to pneumonia - Blood cx: positive strep pneumo - Lactate: 2.1--> 2.9-> 1.0 - Echo :EF <70% :Trace mitral regurgitation :Mild tricuspid regurgitation :Mild pulmonary hypertension :Trace pulmonic valvular regurgitation - ID consulted, Dr. Ponce; help appreciated - Medications: - Azithromycin 500mg IVqd - Cefepime 1g IV Q8h - Vanco 1g IV Q24h Abdominal pain, nausea, vomiting - Abdominal/pelvic CT: diffuse wall thickening of the urinary bladder, cystitis ? right lower lobe consolidation; superior compression deformities of L2 and L3 - Zofran 4mg IV Q6h prn for n/v Hypoglycemic Hx of DM - Accuchecks - Hypoglycemia protocol - Endocrinology consulted, Dr. Lopez; help appreciated - D10W @100mls/hr until glucose is 140--> will switch to D5-1/2NS @100mls/hr - Continue to monitor Anemia - Stool occult: f/u - Possibly due to dilution, continue to monitor Prophylaxis - Protonix 40mg PO daily - Heparin 5000u SC Q12h - PT/OT Case discussed with Dr. Kerr. Management per Dr. Willam Kerr.
--- NOTE | 2017-09-27 10:42 | CP.PCM.PN ---
Subjective - Date & Time of Evaluation Date of Evaluation: 09/27/17 Time of Evaluation: 08:40 - Subjective Subjective: patient seen and examined Denies cough, denies shortness of breath, denies fever chills Patient blood culture positive for strep pneumo Objective - Vital Signs/Intake and Output Vital Signs (last 24 hours): Temp Pulse Resp BP Pulse Ox 98.4 F 80 18 116/65 95 09/27/17 08:00 09/27/17 08:00 09/27/17 08:00 09/27/17 08:00 09/27/17 08:00 Intake and Output: 09/27/17 09/27/17 06:59 18:59 Intake Total 1200 Output Total 800 Balance 400 - Medications Medications: Current Medications Dextrose (Dextrose 50% Inj) 0 ml IV STAT PRN; Protocol PRN Reason: Hypoglycemia Protocol Last Admin: 09/26/17 00:01 Dose: 50 ml Dextrose (Glutose 15) 0 gm PO ONCE PRN; Protocol PRN Reason: Hypoglycemia Protocol Glucagon (Glucagen Diagnostic Kit) 0 mg IM STAT PRN; Protocol PRN Reason: Hypoglycemia Protocol Heparin Sodium (Porcine) (Heparin) 5,000 units SC Q12 [facility] Last Admin: 09/27/17 09:00 Dose: 5,000 units Cefepime HCl (Maxipime Iv 2 Gm Premix) 2 gm in 100 mls @ 200 mls/hr IVPB Q8H [facility] PRN Reason: Protocol Stop: 09/30/17 13:01 Last Admin: 09/27/17 04:26 Dose: 200 mls/hr Vancomycin/Sodium Chloride (Vancomycin 1 Gm/Ns 200 Ml) 1 gm in 200 mls @ 133.333 mls/hr IVPB Q24H [facility] PRN Reason: Protocol Stop: 10/01/17 12:01 Last Admin: 09/26/17 12:59 Dose: 133.333 mls/hr Dextrose (Dextrose 5% In Water 1000 Ml) 1,000 mls @ 0 mls/hr IV .Q0M PRN; Protocol; Per Protocol PRN Reason: Hypoglycemia Protocol Dextrose (Dextrose 10% In Water) 1,000 mls @ 50 mls/hr IV .Q20H [facility] Last Admin: 09/26/17 03:53 Dose: Not Given Dextrose (Dextrose 10% In Water) 1,000 mls @ 100 mls/hr IV .Q10H [facility] Last Admin: 09/27/17 08:59 Dose: 100 mls/hr Potassium Chloride (Potassium Chloride 20 Meq/100 Ml) 20 meq in 100 mls @ 50 mls/hr IVPB ONCE ONE Stop: 09/27/17 11:32 Last Admin: 09/27/17 09:57 Dose: 50 mls/hr Potassium Chloride (Potassium Chloride 20 Meq/100 Ml) 20 meq in 100 mls @ 50 mls/hr IVPB ONCE ONE Stop: 09/27/17 13:29 Ondansetron HCl (Zofran Inj) 4 mg IVP Q6H PRN PRN Reason: Nausea/Vomiting Pantoprazole Sodium (Protonix Ec Tab) 40 mg PO DAILY [facility] Last Admin: 09/27/17 09:00 Dose: 40 mg - Labs Labs: 09/27/17 07:43 09/27/17 07:43 PT 14.6 SECONDS (9.7-12.2) H 09/24/17 00:10 INR 1.3 09/24/17 00:10 APTT 27 SECONDS (21-34) 09/24/17 00:10 - Head Exam Head Exam: ATRAUMATIC - Eye Exam Eye Exam: PERRL - ENT Exam ENT Exam: Mucous Membranes Moist - Neck Exam Neck Exam: Normal Inspection - Respiratory Exam Respiratory Exam: Rales - Cardiovascular Exam Cardiovascular Exam: REGULAR RHYTHM - GI/Abdominal Exam GI & Abdominal Exam: Soft Assessment and Plan (1) Pneumonia Assessment & Plan: Strep pneumonia in the blood continue antibiotics Followup chest x-ray Status: Acute (2) Severe sepsis Status: Acute (3) IKE (acute kidney injury) Status: Acute
[2017-09-27] MEDS: Vancomycin 1 gm/NS 200 ml 1 GM/200 ML BAG IVPB SCH (11:47)
[2017-09-27 14:23] LABS: BASO % 0.7 % (0.0-2.0); EOS # 0.1 K/uL (0.0-0.7); EOS % 1.9 % (0.0-4.0); HEMOGLOBIN 8.9 g/dL (11.0-16.0); LYMPH % 13.5 % (20.0-40.0); MEAN CELL VOLUME 87.3 fL (81.0-99.0); MEAN CORPUSCULAR HEMOGLOBIN 28.8 pg (27.0-31.0); MEAN PLATELET VOLUME 7.8 fL (7.2-11.7); MONO # 0.7 K/uL (0.0-0.8); MONO % 9.6 % (0.0-10.0); NEUT # 5.3 K/uL (1.8-7.0); NEUT % 74.3 % (50.0-75.0); NRBC % 0.1 % (0.0-2.0); RBC 3.1 Mil/uL (3.80-5.20); RED CELL DISTRIBUTION WIDTH 15.4 % (11.5-14.5); WHITE BLOOD COUNT 7.2 K/uL (4.8-10.8)
--- NOTE | 2017-09-27 19:34 | CP.PCM.PN ---
Subjective - Date & Time of Evaluation Date of Evaluation: 09/27/17 Time of Evaluation: 08:20 - Subjective Subjective: clinically same Objective - Vital Signs/Intake and Output Vital Signs (last 24 hours): Temp Pulse Resp BP Pulse Ox 98.6 F 81 20 127/60 96 09/27/17 15:53 09/27/17 16:08 09/27/17 15:53 09/27/17 15:53 09/27/17 15:53 Intake and Output: 09/27/17 09/28/17 18:59 06:59 Intake Total 1180 Output Total 650 Balance 530 - Medications Medications: Current Medications Dextrose (Dextrose 50% Inj) 0 ml IV STAT PRN; Protocol PRN Reason: Hypoglycemia Protocol Last Admin: 09/26/17 00:01 Dose: 50 ml Dextrose (Glutose 15) 0 gm PO ONCE PRN; Protocol PRN Reason: Hypoglycemia Protocol Glucagon (Glucagen Diagnostic Kit) 0 mg IM STAT PRN; Protocol PRN Reason: Hypoglycemia Protocol Heparin Sodium (Porcine) (Heparin) 5,000 units SC Q12 [facility] Last Admin: 09/27/17 09:00 Dose: 5,000 units Cefepime HCl (Maxipime Iv 2 Gm Premix) 2 gm in 100 mls @ 200 mls/hr IVPB Q8H [facility] PRN Reason: Protocol Stop: 09/30/17 13:01 Last Admin: 09/27/17 13:27 Dose: 200 mls/hr Vancomycin/Sodium Chloride (Vancomycin 1 Gm/Ns 200 Ml) 1 gm in 200 mls @ 133.333 mls/hr IVPB Q24H [facility] PRN Reason: Protocol Stop: 10/01/17 12:01 Last Admin: 09/27/17 11:47 Dose: 133.333 mls/hr Dextrose (Dextrose 5% In Water 1000 Ml) 1,000 mls @ 0 mls/hr IV .Q0M PRN; Protocol; Per Protocol PRN Reason: Hypoglycemia Protocol Dextrose (Dextrose 10% In Water) 1,000 mls @ 50 mls/hr IV .Q20H [facility] Last Admin: 09/26/17 03:53 Dose: Not Given Dextrose (Dextrose 10% In Water) 1,000 mls @ 100 mls/hr IV .Q10H [facility] Last Admin: 09/27/17 08:59 Dose: 100 mls/hr Ondansetron HCl (Zofran Inj) 4 mg IVP Q6H PRN PRN Reason: Nausea/Vomiting Last Admin: 09/27/17 12:15 Dose: 4 mg Pantoprazole Sodium (Protonix Ec Tab) 40 mg PO DAILY [facility] Last Admin: 09/27/17 09:00 Dose: 40 mg - Labs Labs: 09/27/17 14:16 09/27/17 07:43 PT 14.6 SECONDS (9.7-12.2) H 09/24/17 00:10 INR 1.3 09/24/17 00:10 APTT 27 SECONDS (21-34) 09/24/17 00:10 - Constitutional Appears: Well - Head Exam Head Exam: ATRAUMATIC, NORMAL INSPECTION, NORMOCEPHALIC - Eye Exam Eye Exam: EOMI, Normal appearance, PERRL Pupil Exam: NORMAL ACCOMODATION, PERRL - ENT Exam ENT Exam: Mucous Membranes Moist, Normal Exam - Neck Exam Neck Exam: Full ROM, Normal Inspection. absent: Lymphadenopathy - Respiratory Exam Respiratory Exam: Decreased Breath Sounds - Cardiovascular Exam Cardiovascular Exam: REGULAR RHYTHM, +S1, +S2 - GI/Abdominal Exam GI & Abdominal Exam: Soft, Diminished Bowel Sounds - Rectal Exam Rectal Exam: Deferred Assessment and Plan - Assessment and Plan (Free Text) Plan: Patient is a 77 year old female with a history of DM, HTN, peripheral edema, and arthritis, who presented to the ED with abdominal pain, nausea and vomiting. Pneumonia - Likely aspiration pneumonia - CXR: right lower lung infiltrate - Abdominal/pelvic CT: right lower lobe consolidation - Blood cx: positive strep pneumo - Mycoplasma pneumo, Legionella: negative - Strep pneumo positive on blood culture - ID consulted, Dr. Ponce; help appreciated - Medications: - Azithromycin 500mg IVqd - Cefepime 1g IV Q8h - Vanco 1g IV Q24h Sepsis - Likely secondary to pneumonia - Blood cx: positive strep pneumo - Lactate: 2.1--> 2.9-> 1.0 - Echo :EF <70% :Trace mitral regurgitation :Mild tricuspid regurgitation :Mild pulmonary hypertension :Trace pulmonic valvular regurgitation - ID consulted, Dr. Ponce; help appreciated - Medications: - Azithromycin 500mg IVqd - Cefepime 1g IV Q8h - Vanco 1g IV Q24h Abdominal pain, nausea, vomiting - Abdominal/pelvic CT: diffuse wall thickening of the urinary bladder, cystitis ? right lower lobe consolidation; superior compression deformities of L2 and L3 - Zofran 4mg IV Q6h prn for n/v Hypoglycemic Hx of DM - Accuchecks - Hypoglycemia protocol - Endocrinology consulted, Dr. Lopez; help appreciated - D10W @100mls/hr until glucose is 140--> will switch to D5-1/2NS @100mls/hr - Continue to monitor Anemia - Stool occult: f/u - Possibly due to dilution, continue to monitor Prophylaxis - Protonix 40mg PO daily - Heparin 5000u SC Q12h - PT/OT
--- NOTE | 2017-09-27 20:17 | CP.PCM.PN ---
Subjective - Date & Time of Evaluation Date of Evaluation: 09/27/17 Time of Evaluation: 02:00 - Subjective Subjective: dictated Objective - Vital Signs/Intake and Output Vital Signs (last 24 hours): Temp Pulse Resp BP Pulse Ox 98.6 F 93 H 20 127/60 96 09/27/17 15:53 09/27/17 20:11 09/27/17 15:53 09/27/17 15:53 09/27/17 15:53 Intake and Output: 09/27/17 09/28/17 18:59 06:59 Intake Total 1180 Output Total 650 Balance 530 - Medications Medications: Current Medications Dextrose (Dextrose 50% Inj) 0 ml IV STAT PRN; Protocol PRN Reason: Hypoglycemia Protocol Last Admin: 09/26/17 00:01 Dose: 50 ml Dextrose (Glutose 15) 0 gm PO ONCE PRN; Protocol PRN Reason: Hypoglycemia Protocol Glucagon (Glucagen Diagnostic Kit) 0 mg IM STAT PRN; Protocol PRN Reason: Hypoglycemia Protocol Heparin Sodium (Porcine) (Heparin) 5,000 units SC Q12 [facility] Last Admin: 09/27/17 09:00 Dose: 5,000 units Cefepime HCl (Maxipime Iv 2 Gm Premix) 2 gm in 100 mls @ 200 mls/hr IVPB Q8H [facility] PRN Reason: Protocol Stop: 09/30/17 13:01 Last Admin: 09/27/17 13:27 Dose: 200 mls/hr Vancomycin/Sodium Chloride (Vancomycin 1 Gm/Ns 200 Ml) 1 gm in 200 mls @ 133.333 mls/hr IVPB Q24H [facility] PRN Reason: Protocol Stop: 10/01/17 12:01 Last Admin: 09/27/17 11:47 Dose: 133.333 mls/hr Dextrose (Dextrose 5% In Water 1000 Ml) 1,000 mls @ 0 mls/hr IV .Q0M PRN; Protocol; Per Protocol PRN Reason: Hypoglycemia Protocol Dextrose (Dextrose 10% In Water) 1,000 mls @ 50 mls/hr IV .Q20H [facility] Last Admin: 09/27/17 16:00 Dose: Not Given Dextrose (Dextrose 10% In Water) 1,000 mls @ 100 mls/hr IV .Q10H [facility] Last Admin: 09/27/17 20:07 Dose: Not Given Ondansetron HCl (Zofran Inj) 4 mg IVP Q6H PRN PRN Reason: Nausea/Vomiting Last Admin: 09/27/17 12:15 Dose: 4 mg Pantoprazole Sodium (Protonix Ec Tab) 40 mg PO DAILY [facility] Last Admin: 09/27/17 09:00 Dose: 40 mg - Labs Labs: 09/27/17 14:16 09/27/17 07:43 PT 14.6 SECONDS (9.7-12.2) H 09/24/17 00:10 INR 1.3 09/24/17 00:10 APTT 27 SECONDS (21-34) 09/24/17 00:10
--- NOTE | 2017-09-27 20:39 | PN ---
Copied To: Gabbi Lopez MD Attending MD: Gabbi Lopez MD DATE: 09/27/2017 ENDO FOLLOWUP NOTE LOCATION: Room 566. This is a 77-year-old female with ongoing IV antibiotic management for acute pneumonitis and is also being followed closely for metabolic management because of extremes glycemic fluctuation as noted thereof. Her glucose levels have finally improved today and overnight, and have ranged from 155 to 147 and 171 mg/dL. Her hemoglobin A1c is 6.4%. Her chemistry shows a BUN of 10, sodium 136, potassium 3.2, chloride 105, CO2 of 22, glucose 183, and creatinine 0.9. Her serum cortisol level is 14.6 mcg/dL, and her T4 is 5.79 with a TSH of 1.49. So at this time, we will discontinue the D10 dextrose infusion and switch her over to D5 and half normal saline running at 50 mL/h as ordered. We will titrate incremental as indicated to optimize metabolic control. We will obtain serial chemistries and supplement accordingly as needed. We will hold off the resumption of her oral hypoglycemic therapy for now to allow for dose equilibration, and if hyperglycemic level supervene, then we will start her on the very low dose short-acting oral hypoglycemic therapy such as Prandin as indicated. We will obtain serial chemistries and supplement accordingly as needed. We will follow. Gabbi Lopez MD
[2017-09-27] MEDS: Dextrose 5%/0.45% NS 1,000 ML IV SCH (22:03)
--- NOTE | 2017-09-28 01:37 | PN ---
Copied To: Brock Ponce MD Attending MD: Brock Ponce MD DATE: 09/27/2017 INFECTIOUS DISEASE FOLLOWUP SUBJECTIVE: The patient is on isolation as her blood cultures did grow Strep pneumo. Even the urine Strep pneumo antigen was positive, so she does have a florid pneumonia with Strep pneumo and had septic shock and came in with that. She states she feels a little better now. She is not coughing as much. She refused for any pneumonia vaccine. I told her she can , and she says she does not care about it. PHYSICAL EXAMINATION: VITAL SIGNS: T-max is 98.6, pulse 84, blood pressure is 127/60, respirations are 20. She is on nasal cannula. HEENT: Head is atraumatic, normocephalic. NECK: Supple. LUNGS: There are decreased breath sounds bilaterally, occasional wheeze. HEART: S1, S2 are regular. No murmurs appreciated at this time. ABDOMEN: Soft, nontender. No guarding, no rigidity present. EXTREMITIES: Have no edema. LABORATORY DATA: White count is 7.2, hemoglobin 8.9, hematocrit 27.1, platelet count is 112. Still low potassium, was yesterday 3.2, so it needs to be monitored or we should continue with some potassium. Legionella is negative, Mycoplasma is negative, and she also had abdominopelvic CT on admission as she was complaining of pain there. Mild epigastric pain, nausea, and vomiting, and it showed compression deformity of L2 and superior compression deformity of L3 with up to 25% loss of the vertebral body height. These are both age indeterminate, and there was diffuse wall thickening of the urinary bladder suggesting cystitis and a right lower lobe pneumonia which is pneumococcal pneumonia. So at this time, we will continue antibiotics and we will add potassium, and she was the one who was also having some hypoglycemia before. Right now, she is on vancomycin and cefepime, and we will continue both over the weekend and on x-ray on Saturday, and we will follow with the Pulmonary. Strep pneumo, they gave us sensitivity. It is vancomycin sensitive and chloramphenicol sensitive. They did not give any sensitivities to cephalosporin. We will continue both at this time. We will follow. The patient is little bit better than before. Brock Ponce MD [facility] # [id number]
[2017-09-28] MEDS: Cefepime IV 2 gm in Dextrose 2 GM/100 ML BAG IVPB SCH ×3 (05:05→21:30)
[2017-09-28] MEDS: Pantoprazole 40 mg EC Tab PO SCH (09:30)
[2017-09-28] MEDS: Vancomycin 1 gm/NS 200 ml 1 GM/200 ML BAG IVPB SCH (11:24)
--- NOTE | 2017-09-28 13:01 | CP.PCM.PN ---
Subjective - Date & Time of Evaluation Date of Evaluation: 09/28/17 Time of Evaluation: 08:20 - Subjective Subjective: Clinically same Objective - Vital Signs/Intake and Output Vital Signs (last 24 hours): Temp Pulse Resp BP Pulse Ox 98.5 F 94 H 20 121/57 L 95 09/28/17 07:00 09/28/17 07:55 09/28/17 07:00 09/28/17 07:00 09/28/17 07:00 Intake and Output: 09/28/17 09/28/17 06:59 18:59 Intake Total 800 Output Total 1200 Balance -400 - Medications Medications: Current Medications Dextrose (Dextrose 50% Inj) 0 ml IV STAT PRN; Protocol PRN Reason: Hypoglycemia Protocol Last Admin: 09/26/17 00:01 Dose: 50 ml Dextrose (Glutose 15) 0 gm PO ONCE PRN; Protocol PRN Reason: Hypoglycemia Protocol Glucagon (Glucagen Diagnostic Kit) 0 mg IM STAT PRN; Protocol PRN Reason: Hypoglycemia Protocol Heparin Sodium (Porcine) (Heparin) 5,000 units SC Q12 [facility] Last Admin: 09/28/17 09:30 Dose: 5,000 units Cefepime HCl (Maxipime Iv 2 Gm Premix) 2 gm in 100 mls @ 200 mls/hr IVPB Q8H [facility] PRN Reason: Protocol Stop: 09/30/17 13:01 Last Admin: 09/28/17 05:05 Dose: 200 mls/hr Vancomycin/Sodium Chloride (Vancomycin 1 Gm/Ns 200 Ml) 1 gm in 200 mls @ 133.333 mls/hr IVPB Q24H [facility] PRN Reason: Protocol Stop: 10/01/17 12:01 Last Admin: 09/28/17 11:24 Dose: 133.333 mls/hr Dextrose (Dextrose 5% In Water 1000 Ml) 1,000 mls @ 0 mls/hr IV .Q0M PRN; Protocol; Per Protocol PRN Reason: Hypoglycemia Protocol Dextrose/Sodium Chloride (Dextrose 5%/0.45% Ns 1000 Ml) 1,000 mls @ 50 mls/hr IV .Q20H [facility] Last Admin: 09/27/17 22:03 Dose: 50 mls/hr Ondansetron HCl (Zofran Inj) 4 mg IVP Q6H PRN PRN Reason: Nausea/Vomiting Last Admin: 09/27/17 12:15 Dose: 4 mg Pantoprazole Sodium (Protonix Ec Tab) 40 mg PO DAILY [facility] Last Admin: 09/28/17 09:30 Dose: 40 mg - Labs Labs: 09/27/17 14:16 09/27/17 07:43 PT 14.6 SECONDS (9.7-12.2) H 09/24/17 00:10 INR 1.3 09/24/17 00:10 APTT 27 SECONDS (21-34) 09/24/17 00:10 - Constitutional Appears: Well - Head Exam Head Exam: ATRAUMATIC, NORMAL INSPECTION, NORMOCEPHALIC - Eye Exam Eye Exam: EOMI, Normal appearance, PERRL Pupil Exam: NORMAL ACCOMODATION, PERRL - ENT Exam ENT Exam: Mucous Membranes Moist, Normal Exam - Neck Exam Neck Exam: Full ROM, Normal Inspection. absent: Lymphadenopathy - Respiratory Exam Respiratory Exam: Decreased Breath Sounds - Cardiovascular Exam Cardiovascular Exam: REGULAR RHYTHM, +S1, +S2 - GI/Abdominal Exam GI & Abdominal Exam: Soft, Diminished Bowel Sounds - Rectal Exam Rectal Exam: Deferred
--- NOTE | 2017-09-28 14:01 | CP.PCM.PN ---
Subjective - Date & Time of Evaluation Date of Evaluation: 09/28/17 Time of Evaluation: 13:00 - Subjective Subjective: dictated Objective - Vital Signs/Intake and Output Vital Signs (last 24 hours): Temp Pulse Resp BP Pulse Ox 98.5 F 94 H 20 121/57 L 95 09/28/17 07:00 09/28/17 07:55 09/28/17 07:00 09/28/17 07:00 09/28/17 07:00 Intake and Output: 09/28/17 09/28/17 06:59 18:59 Intake Total 800 Output Total 1200 Balance -400 - Medications Medications: Current Medications Dextrose (Dextrose 50% Inj) 0 ml IV STAT PRN; Protocol PRN Reason: Hypoglycemia Protocol Last Admin: 09/26/17 00:01 Dose: 50 ml Dextrose (Glutose 15) 0 gm PO ONCE PRN; Protocol PRN Reason: Hypoglycemia Protocol Glucagon (Glucagen Diagnostic Kit) 0 mg IM STAT PRN; Protocol PRN Reason: Hypoglycemia Protocol Heparin Sodium (Porcine) (Heparin) 5,000 units SC Q12 [facility] Last Admin: 09/28/17 09:30 Dose: 5,000 units Cefepime HCl (Maxipime Iv 2 Gm Premix) 2 gm in 100 mls @ 200 mls/hr IVPB Q8H [facility] PRN Reason: Protocol Stop: 09/30/17 13:01 Last Admin: 09/28/17 05:05 Dose: 200 mls/hr Vancomycin/Sodium Chloride (Vancomycin 1 Gm/Ns 200 Ml) 1 gm in 200 mls @ 133.333 mls/hr IVPB Q24H [facility] PRN Reason: Protocol Stop: 10/01/17 12:01 Last Admin: 09/28/17 11:24 Dose: 133.333 mls/hr Dextrose (Dextrose 5% In Water 1000 Ml) 1,000 mls @ 0 mls/hr IV .Q0M PRN; Protocol; Per Protocol PRN Reason: Hypoglycemia Protocol Dextrose/Sodium Chloride (Dextrose 5%/0.45% Ns 1000 Ml) 1,000 mls @ 50 mls/hr IV .Q20H [facility] Last Admin: 09/27/17 22:03 Dose: 50 mls/hr Ondansetron HCl (Zofran Inj) 4 mg IVP Q6H PRN PRN Reason: Nausea/Vomiting Last Admin: 09/27/17 12:15 Dose: 4 mg Pantoprazole Sodium (Protonix Ec Tab) 40 mg PO DAILY [facility] Last Admin: 09/28/17 09:30 Dose: 40 mg - Labs Labs: 09/27/17 14:16 09/27/17 07:43 PT 14.6 SECONDS (9.7-12.2) H 09/24/17 00:10 INR 1.3 09/24/17 00:10 APTT 27 SECONDS (21-34) 09/24/17 00:10
--- NOTE | 2017-09-28 14:53 | CP.PCM.PN ---
Subjective - Date & Time of Evaluation Date of Evaluation: 09/28/17 Time of Evaluation: 12:25 - Subjective Subjective: patient seen and examined Denies cough or shortness of breath Afebrile Being treated for pneumonia/Bacteremia Objective - Vital Signs/Intake and Output Vital Signs (last 24 hours): Temp Pulse Resp BP Pulse Ox 98.5 F 94 H 20 121/57 L 95 09/28/17 07:00 09/28/17 07:55 09/28/17 07:00 09/28/17 07:00 09/28/17 07:00 Intake and Output: 09/28/17 09/28/17 06:59 18:59 Intake Total 800 Output Total 1200 Balance -400 - Medications Medications: Current Medications Dextrose (Dextrose 50% Inj) 0 ml IV STAT PRN; Protocol PRN Reason: Hypoglycemia Protocol Last Admin: 09/26/17 00:01 Dose: 50 ml Dextrose (Glutose 15) 0 gm PO ONCE PRN; Protocol PRN Reason: Hypoglycemia Protocol Glucagon (Glucagen Diagnostic Kit) 0 mg IM STAT PRN; Protocol PRN Reason: Hypoglycemia Protocol Heparin Sodium (Porcine) (Heparin) 5,000 units SC Q12 [facility] Last Admin: 09/28/17 09:30 Dose: 5,000 units Cefepime HCl (Maxipime Iv 2 Gm Premix) 2 gm in 100 mls @ 200 mls/hr IVPB Q8H [facility] PRN Reason: Protocol Stop: 09/30/17 13:01 Last Admin: 09/28/17 14:06 Dose: 200 mls/hr Vancomycin/Sodium Chloride (Vancomycin 1 Gm/Ns 200 Ml) 1 gm in 200 mls @ 133.333 mls/hr IVPB Q24H [facility] PRN Reason: Protocol Stop: 10/01/17 12:01 Last Admin: 09/28/17 11:24 Dose: 133.333 mls/hr Dextrose (Dextrose 5% In Water 1000 Ml) 1,000 mls @ 0 mls/hr IV .Q0M PRN; Protocol; Per Protocol PRN Reason: Hypoglycemia Protocol Dextrose/Sodium Chloride (Dextrose 5%/0.45% Ns 1000 Ml) 1,000 mls @ 50 mls/hr IV .Q20H [facility] Last Admin: 09/27/17 22:03 Dose: 50 mls/hr Ondansetron HCl (Zofran Inj) 4 mg IVP Q6H PRN PRN Reason: Nausea/Vomiting Last Admin: 09/27/17 12:15 Dose: 4 mg Pantoprazole Sodium (Protonix Ec Tab) 40 mg PO DAILY [facility] Last Admin: 09/28/17 09:30 Dose: 40 mg - Labs Labs: 09/27/17 14:16 09/27/17 07:43 PT 14.6 SECONDS (9.7-12.2) H 09/24/17 00:10 INR 1.3 09/24/17 00:10 APTT 27 SECONDS (21-34) 09/24/17 00:10 - Head Exam Head Exam: ATRAUMATIC, NORMOCEPHALIC - Eye Exam Eye Exam: Normal appearance - ENT Exam ENT Exam: Mucous Membranes Moist - Respiratory Exam Respiratory Exam: Clear to Ausculation Bilateral - Cardiovascular Exam Cardiovascular Exam: REGULAR RHYTHM - GI/Abdominal Exam GI & Abdominal Exam: Soft, Normal Bowel Sounds Assessment and Plan (1) Pneumonia Assessment & Plan: Streptococcus pneumonia in the blood Continue antibiotics Clinically much improved Status: Acute (2) Severe sepsis Status: Acute (3) IKE (acute kidney injury) Status: Acute
[2017-09-28] MEDS: Dextrose 5%/0.45% NS 1,000 ML IV SCH (19:00)
--- NOTE | 2017-09-28 19:45 | PN ---
DATE: 09/28/2017 SUBJECTIVE: The patient, Dawit, was seen today. She again refuses to get a pneumococcal vaccine. She says her mom got a flu vaccine and she developed flu after that. I wanted to go over with her, but she is all bundled up. She says she feels cold but she is coughing less and she feels a little better today. She says there is no one to bring her sweater, but she says she is feeling better. PHYSICAL EXAMINATION: VITAL SIGNS: T-max is 98.5, heart rate of 91, blood pressure 121/57, respirations are 20. HEENT: Head is atraumatic, normocephalic. NECK: Supple. LUNGS: Decreased breath sounds in the bases. Coarse breath sounds otherwise. HEART: S1 and S2 regular. ABDOMEN: Soft and nontender. No guarding, no rigidity present. EXTREMITIES: Have no edema. LABORATORY DATA: White count is 7.2. I do not see a new chemistry. We will repeat labs on Saturday now. She is on cefepime as well as vancomycin, and she has streptococcus pneumococcal pneumonia, and she also had cystitis on the CAT scan and blood cultures repeat are negative at this time. I would be repeating her chest x-ray on Saturday to see for improvement and for further plan, and she is on the antibiotic; today is day 5, and we will follow. Brock Ponce MD
[2017-09-29] MEDS: Cefepime IV 2 gm in Dextrose 2 GM/100 ML BAG IVPB SCH ×3 (04:02→21:03)
[2017-09-29] MEDS: Pantoprazole 40 mg EC Tab PO SCH (09:05)
[2017-09-29] MEDS: Vancomycin 1 gm/NS 200 ml 1 GM/200 ML BAG IVPB SCH (11:32)
--- NOTE | 2017-09-29 13:29 | CP.PCM.PN ---
Subjective - Date & Time of Evaluation Date of Evaluation: 09/29/17 Time of Evaluation: 08:20 - Subjective Subjective: clinically same Objective - Vital Signs/Intake and Output Vital Signs (last 24 hours): Temp Pulse Resp BP Pulse Ox 98.6 F 84 20 137/67 94 L 09/29/17 08:21 09/29/17 08:21 09/29/17 08:21 09/29/17 08:21 09/29/17 08:21 Intake and Output: 09/29/17 09/29/17 06:59 18:59 Output Total 900 Balance -900 - Medications Medications: Current Medications Dextrose (Dextrose 50% Inj) 0 ml IV STAT PRN; Protocol PRN Reason: Hypoglycemia Protocol Last Admin: 09/26/17 00:01 Dose: 50 ml Dextrose (Glutose 15) 0 gm PO ONCE PRN; Protocol PRN Reason: Hypoglycemia Protocol Glucagon (Glucagen Diagnostic Kit) 0 mg IM STAT PRN; Protocol PRN Reason: Hypoglycemia Protocol Heparin Sodium (Porcine) (Heparin) 5,000 units SC Q12 [facility] Last Admin: 09/29/17 09:05 Dose: 5,000 units Cefepime HCl (Maxipime Iv 2 Gm Premix) 2 gm in 100 mls @ 200 mls/hr IVPB Q8H [facility] PRN Reason: Protocol Stop: 09/30/17 13:01 Last Admin: 09/29/17 04:02 Dose: 200 mls/hr Vancomycin/Sodium Chloride (Vancomycin 1 Gm/Ns 200 Ml) 1 gm in 200 mls @ 133.333 mls/hr IVPB Q24H [facility] PRN Reason: Protocol Stop: 10/01/17 12:01 Last Admin: 09/29/17 11:32 Dose: 133.333 mls/hr Ondansetron HCl (Zofran Inj) 4 mg IVP Q6H PRN PRN Reason: Nausea/Vomiting Last Admin: 09/27/17 12:15 Dose: 4 mg Pantoprazole Sodium (Protonix Ec Tab) 40 mg PO DAILY [facility] Last Admin: 09/29/17 09:05 Dose: 40 mg - Labs Labs: 09/27/17 14:16 09/27/17 07:43 PT 14.6 SECONDS (9.7-12.2) H 09/24/17 00:10 INR 1.3 09/24/17 00:10 APTT 27 SECONDS (21-34) 09/24/17 00:10 - Constitutional Appears: Well - Head Exam Head Exam: ATRAUMATIC, NORMAL INSPECTION, NORMOCEPHALIC - Eye Exam Eye Exam: EOMI, Normal appearance, PERRL Pupil Exam: NORMAL ACCOMODATION, PERRL - ENT Exam ENT Exam: Mucous Membranes Moist, Normal Exam - Neck Exam Neck Exam: Full ROM, Normal Inspection. absent: Lymphadenopathy - Respiratory Exam Respiratory Exam: Decreased Breath Sounds - Cardiovascular Exam Cardiovascular Exam: REGULAR RHYTHM, +S1, +S2 - GI/Abdominal Exam GI & Abdominal Exam: Soft, Diminished Bowel Sounds - Rectal Exam Rectal Exam: Deferred
--- NOTE | 2017-09-29 14:16 | CP.PCM.PN ---
Subjective - Date & Time of Evaluation Date of Evaluation: 09/29/17 Time of Evaluation: 12:20 - Subjective Subjective: the patient seen and examined Lying comfortably in no acute distress Being treated for pneumonia and bacteremia Continue antibiotics as per ID Continue nebulizer treatment stable from pulmonary standpoint Objective - Vital Signs/Intake and Output Vital Signs (last 24 hours): Temp Pulse Resp BP Pulse Ox 98.6 F 84 20 137/67 94 L 09/29/17 08:21 09/29/17 08:21 09/29/17 08:21 09/29/17 08:21 09/29/17 08:21 Intake and Output: 09/29/17 09/29/17 06:59 18:59 Output Total 900 Balance -900 - Medications Medications: Current Medications Dextrose (Dextrose 50% Inj) 0 ml IV STAT PRN; Protocol PRN Reason: Hypoglycemia Protocol Last Admin: 09/26/17 00:01 Dose: 50 ml Dextrose (Glutose 15) 0 gm PO ONCE PRN; Protocol PRN Reason: Hypoglycemia Protocol Glucagon (Glucagen Diagnostic Kit) 0 mg IM STAT PRN; Protocol PRN Reason: Hypoglycemia Protocol Cefepime HCl (Maxipime Iv 2 Gm Premix) 2 gm in 100 mls @ 200 mls/hr IVPB Q8H [facility] PRN Reason: Protocol Stop: 09/30/17 13:01 Last Admin: 09/29/17 14:00 Dose: 200 mls/hr Vancomycin/Sodium Chloride (Vancomycin 1 Gm/Ns 200 Ml) 1 gm in 200 mls @ 133.333 mls/hr IVPB Q24H [facility] PRN Reason: Protocol Stop: 10/01/17 12:01 Last Admin: 09/29/17 11:32 Dose: 133.333 mls/hr Ondansetron HCl (Zofran Inj) 4 mg IVP Q6H PRN PRN Reason: Nausea/Vomiting Last Admin: 09/27/17 12:15 Dose: 4 mg Pantoprazole Sodium (Protonix Ec Tab) 40 mg PO DAILY [facility] Last Admin: 09/29/17 09:05 Dose: 40 mg - Labs Labs: 09/27/17 14:16 09/27/17 07:43 PT 14.6 SECONDS (9.7-12.2) H 09/24/17 00:10 INR 1.3 09/24/17 00:10 APTT 27 SECONDS (21-34) 09/24/17 00:10 Assessment and Plan (1) Pneumonia Status: Acute (2) Severe sepsis Status: Acute (3) IKE (acute kidney injury) Status: Acute
--- NOTE | 2017-09-29 15:32 | PN ---
Copied To: Gabbi Lopez MD Attending MD: Gabbi Lopez MD DATE: 09/29/2017 ENDO FOLLOWUP NOTE LOCATION: Room 566. SUBJECTIVE: This is a 77-year-old female with recent uncontrolled type 2 diabetes, presenting here with marked symptomatic hypoglycemia and since then improved clinically and metabolically as noted thereof. Her glucose levels today have ranged from 166 to 172 and 183 mg/dL. Her latest chemistries showed a BUN of 10, sodium 136, potassium 3.2, chloride 95, CO2 of 22, glucose 183, and creatinine . Her hemoglobin A1c is 6.4%. So at this time, we discontinue the dextrose infusion and observe her glycemic fluctuations thereof and as indicated we will much lower dose of an oral hypoglycemic therapy as indicated. We will titrate incrementally as indicated to optimize metabolic control. We will also discontinue the dextrose infusion as given and ordered. We will obtain serial chemistries and supplement accordingly as needed. We will follow her and advise accordingly. Gabbi Lopez MD
[2017-09-29] MEDS ORDERED: Oxybutynin XL 15 mg Tab PO PRN (17:25)
[2017-09-29] MEDS ORDERED: Potassium Chloride 20 mEq ER Tab PO STA (17:33)
--- NOTE | 2017-09-29 18:25 | CP.PCM.PN ---
Subjective - Date & Time of Evaluation Date of Evaluation: 09/29/17 Time of Evaluation: 01:30 - Subjective Subjective: dictated Objective - Vital Signs/Intake and Output Vital Signs (last 24 hours): Temp Pulse Resp BP Pulse Ox 98.5 F 86 20 132/78 94 L 09/29/17 16:00 09/29/17 16:23 09/29/17 16:00 09/29/17 17:49 09/29/17 16:00 Intake and Output: 09/29/17 09/29/17 06:59 18:59 Output Total 900 900 Balance -900 -900 - Medications Medications: Current Medications Calcium Carbonate (Oscal) 500 mg PO BID [facility] Dextrose (Dextrose 50% Inj) 0 ml IV STAT PRN; Protocol PRN Reason: Hypoglycemia Protocol Last Admin: 09/26/17 00:01 Dose: 50 ml Dextrose (Glutose 15) 0 gm PO ONCE PRN; Protocol PRN Reason: Hypoglycemia Protocol Docusate Sodium (Colace) 100 mg PO HS PRN PRN Reason: Constipation Enalapril Maleate (Vasotec) 10 mg PO BID [facility] Last Admin: 09/29/17 17:49 Dose: 10 mg Folic Acid (Folic Acid) 1 mg PO DAILY [facility] Glucagon (Glucagen Diagnostic Kit) 0 mg IM STAT PRN; Protocol PRN Reason: Hypoglycemia Protocol Hydroxychloroquine Sulfate (Plaquenil) 200 mg PO BID [facility] PRN Reason: Protocol Cefepime HCl (Maxipime Iv 2 Gm Premix) 2 gm in 100 mls @ 200 mls/hr IVPB Q8H [facility] PRN Reason: Protocol Stop: 09/30/17 13:01 Last Admin: 09/29/17 14:00 Dose: 200 mls/hr Vancomycin/Sodium Chloride (Vancomycin 1 Gm/Ns 200 Ml) 1 gm in 200 mls @ 133.333 mls/hr IVPB Q24H [facility] PRN Reason: Protocol Stop: 10/01/17 12:01 Last Admin: 09/29/17 11:32 Dose: 133.333 mls/hr Ondansetron HCl (Zofran Inj) 4 mg IVP Q6H PRN PRN Reason: Nausea/Vomiting Last Admin: 09/27/17 12:15 Dose: 4 mg Oxybutynin Chloride (Ditropan Xl) 15 mg PO BID PRN PRN Reason: Urinary discomt Pantoprazole Sodium (Protonix Ec Tab) 40 mg PO DAILY [facility] Last Admin: 09/29/17 09:05 Dose: 40 mg Prednisone (Prednisone Tab) 10 mg PO DAILY [facility] - Labs Labs: 09/27/17 14:16 09/27/17 07:43 PT 14.6 SECONDS (9.7-12.2) H 09/24/17 00:10 INR 1.3 09/24/17 00:10 APTT 27 SECONDS (21-34) 09/24/17 00:10
--- NOTE | 2017-09-30 00:09 | PN ---
Copied To: Brock Ponce MD Attending MD: Brock Ponce MD DATE: 09/29/2017 SUBJECTIVE: The patient was awake and alert. She said she was feeling better. She is wanting to go home. She wanted me to call her daughter, and I told her that tomorrow will be the day she will be going. PHYSICAL EXAMINATION: VITAL SIGNS: T-max is 98.5, pulse 85, blood pressure 132/81, respirations are 20. She was also seen by the pulmonary attending. HEENT: Head is atraumatic. NECK: Supple. LUNGS: Now clear. Occasional rhonchi. Otherwise, mostly clear. HEART: S1, S2 are regular. ABDOMEN: Soft, nontender. No guarding. No rigidity present. EXTREMITIES: Have no edema, and she did have septicemia. LABORATORY DATA: She had come in with a white count of 17 and went up to 19. Her urine also showed legionella antigen positive and she had blood cultures positive, which was vancomycin and chloramphenicol sensitive. Tomorrow, I want to call the micro lab to find out if it was sensitive to Maxipime as she has been on vancomycin and Maxipime both, and we can send her home on Vantin 200 b.i.d. for another week, 7 to 10 days if I am told that it was sensitive to Rocephin or Maxipime, I need that information. The patient is otherwise getting better and stable. If not, then we will start giving vancomycin IV. She also had a CAT scan, which showed cystitis. They were not able to collect the urine culture, it seems. The patient also is adamant that she does not want pneumococcal vaccine and has her own ideologies about vaccination. Brock Ponce MD : 09/29/2017 18:29:49
--- NOTE | 2017-09-30 04:56 | PN ---
Copied To: Gabbi Lopez MD Attending MD: Gabbi Lopez MD DATE: 09/29/2017 This is a 77-year-old female with recent extremes of glycemic fluctuations and has now improved clinically and metabolically as noted thereof. She has been taken off the dextrose infusions as given initially from D10W and switched over to D5.5 normal saline as ordered. She is currently off the IV dextrose medications and her glycemic levels are fluctuating but improved as noted. Her glucose values have ranged from 172 to 183 mg/dL. Her latest chemistries showed a BUN of 10, sodium 136, potassium 3.2, chloride 105, CO2 is 22, glucose 183, and creatinine 0.9. At this time, we will hold off the resumption of her oral hypoglycemic therapy considering the variability of her oral intake as noted thereof. We will repeat the chemistries tomorrow and observe her glycemic fluctuations overnight and if indeed mild hyperglycemic levels persist, then we will consider the addition of very low dose short acting oral hypoglycemic therapy as indicated. We will follow. Gabbi Lopez MD [facility] # [id number]
[2017-09-30] MEDS: Cefepime IV 2 gm in Dextrose 2 GM/100 ML BAG IVPB SCH ×2 (04:58→14:22)
--- NOTE | 2017-09-30 06:42 | PN ---
Copied To: Gabbi Lopez MD Attending MD: Gabbi Lopez MD ENDO FOLLOWUP NOTE DATE: 09/28/2017 LOCATION: Room 566. SUBJECTIVE: This is a 77-year-old female with recent uncontrolled type 2 diabetes, now with improving metabolic profile as noted overnight, and the glucose levels have ranged from 166 to 203 mg/dL. Her hemoglobin A1c is 6.4%, which is actually optimal in terms of her metabolic control in the outpatient as noted. Her latest chemistry shows a BUN of 10, sodium 136, potassium 3.2, chloride 105, CO2 of 22, glucose 183, and creatinine 0.9. So at this time, we will continue the dextrose infusion given as D-5-1/2 normal saline running at 50 mL/hour as ordered. We will obtain serial chemistries and supplement accordingly as needed. We will follow. ADDENDUM: We will also hold off the resumption of all her hyperglycemic therapy for now to allow for dose equilibration as noted. Gabbi Lopez MD
[2017-09-30 07:16] LABS: BASO # 0.1 K/uL (0.0-0.2); BASO % 1.3 % (0.0-2.0); EOS # 0.3 K/uL (0.0-0.7); EOS % 4.6 % (0.0-4.0); HEMOGLOBIN 9.4 g/dL (11.0-16.0); LYMPH % 18.2 % (20.0-40.0); MEAN CORPUSCULAR HEMOGLOBIN 28.7 pg (27.0-31.0); MEAN CORPUSCULAR HGB CONC 33.3 g/dL (33.0-37.0); MEAN PLATELET VOLUME 7.6 fL (7.2-11.7); MONO # 0.5 K/uL (0.0-0.8); MONO % 8.8 % (0.0-10.0); NEUT # 3.8 K/uL (1.8-7.0); NEUT % 67.1 % (50.0-75.0); NRBC % 0.1 % (0.0-2.0); RBC 3.29 Mil/uL (3.80-5.20); RED CELL DISTRIBUTION WIDTH 14.9 % (11.5-14.5); WHITE BLOOD COUNT 5.6 K/uL (4.8-10.8)
[2017-09-30 07:58] LABS: ALBUMIN 2.9 g/dL (3.5-5.0); ALT/SGPT 24 U/L (9-52); AST/SGOT 11 U/L (14-36); BLOOD UREA NITROGEN 9 mg/dL (7-17); CALCIUM 8.4 mg/dl (8.6-10.4); GFR AFRICAN-AMERICAN > 60; GFR NON-AFRICAN AMERICAN 54
[2017-09-30] MEDS ORDERED: Amoxicillin-Clav 875-125 mg Tab PO SCH ×3 (09:00→16:00)
[2017-09-30] MEDS: Pantoprazole 40 mg EC Tab PO SCH (10:44)
[2017-09-30] MEDS: Vancomycin 1 gm/NS 200 ml 1 GM/200 ML BAG IVPB SCH (11:57)
--- NOTE | 2017-09-30 12:09 | CT ---
Date of service: 09/30/2017 PROCEDURE: CT HEAD WITHOUT CONTRAST. HISTORY: periods of confusion COMPARISON: None available. TECHNIQUE: Axial computed tomography images were obtained through the head/brain without intravenous contrast. Radiation dose: Total exam DLP = 868.01 mGy-cm. This CT exam was performed using one or more of the following dose reduction techniques: Automated exposure control, adjustment of the mA and/or kV according to patient size, and/or use of iterative reconstruction technique. FINDINGS: HEMORRHAGE: No intracranial hemorrhage. BRAIN: No mass effect or edema. Minimal age appropriate diffuse atrophy. Mild chronic periventricular white matter ischemic change. No evidence of acute infarct. Old left thalamic lacunar infarct. Old right pontine lacunar infarct. VENTRICLES: Unremarkable. No hydrocephalus. CALVARIUM: Unremarkable. PARANASAL SINUSES: Unremarkable as visualized. No significant inflammatory changes. MASTOID AIR CELLS: Unremarkable as visualized. No inflammatory changes. OTHER FINDINGS: None. IMPRESSION: No intracranial mass, hemorrhage or evidence of acute infarct. Mild atrophy and chronic white matter ischemic change. 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
--- NOTE | 2017-09-30 15:09 | CP.PCM.PN ---
Subjective - Date & Time of Evaluation Date of Evaluation: 09/30/17 Time of Evaluation: 15:08 - Subjective Subjective: PGY-[address] Meggan Kerr's Service Patient seen and examined at bedside. Per nursing no acute events occurred overnight. Patient does reports some chills and subjective fevers today upon examination. Patient denies any chest pain ,shortness of breath, nausea, vomiting, abdominal pain or any other complaints. Objective - Vital Signs/Intake and Output Vital Signs (last 24 hours): Temp Pulse Resp BP Pulse Ox 97.9 F 75 18 125/61 100 09/30/17 07:00 09/30/17 07:00 09/30/17 07:00 09/30/17 10:44 09/30/17 07:00 Intake and Output: 09/30/17 09/30/17 06:59 18:59 Output Total 900 800 Balance -900 -800 - Medications Medications: Current Medications Acetaminophen (Tylenol 325mg Tab) 650 mg PO Q6H PRN PRN Reason: Pain, Mild (1-3) Last Admin: 09/29/17 21:04 Dose: 650 mg Amoxicillin/Clavulanate Potassium (Augmentin 875 Mg-125 Mg Tab) 1 tab PO Q12H [facility] PRN Reason: Protocol Calcium Carbonate (Oscal) 500 mg PO BID [facility] Last Admin: 09/30/17 10:44 Dose: 500 mg Dextrose (Dextrose 50% Inj) 0 ml IV STAT PRN; Protocol PRN Reason: Hypoglycemia Protocol Last Admin: 09/26/17 00:01 Dose: 50 ml Dextrose (Glutose 15) 0 gm PO ONCE PRN; Protocol PRN Reason: Hypoglycemia Protocol Docusate Sodium (Colace) 100 mg PO HS PRN PRN Reason: Constipation Enalapril Maleate (Vasotec) 10 mg PO BID [facility] Last Admin: 09/30/17 10:44 Dose: 10 mg Folic Acid (Folic Acid) 1 mg PO DAILY [facility] Last Admin: 09/30/17 10:44 Dose: 1 mg Glucagon (Glucagen Diagnostic Kit) 0 mg IM STAT PRN; Protocol PRN Reason: Hypoglycemia Protocol Hydroxychloroquine Sulfate (Plaquenil) 200 mg PO BID [facility] PRN Reason: Protocol Last Admin: 09/30/17 10:44 Dose: 200 mg Ondansetron HCl (Zofran Inj) 4 mg IVP Q6H PRN PRN Reason: Nausea/Vomiting Last Admin: 09/30/17 01:36 Dose: 4 mg Oxybutynin Chloride (Ditropan Xl) 15 mg PO BID PRN PRN Reason: Urinary discomt Pantoprazole Sodium (Protonix Ec Tab) 40 mg PO DAILY [facility] Last Admin: 09/30/17 10:44 Dose: 40 mg Prednisone (Prednisone Tab) 10 mg PO DAILY [facility] Last Admin: 09/30/17 10:44 Dose: 10 mg - Labs Labs: 09/30/17 07:08 09/30/17 07:08 PT 14.6 SECONDS (9.7-12.2) H 09/24/17 00:10 INR 1.3 09/24/17 00:10 APTT 27 SECONDS (21-34) 09/24/17 00:10 - Head Exam Head Exam: ATRAUMATIC, NORMAL INSPECTION, NORMOCEPHALIC - Eye Exam Eye Exam: EOMI, Normal appearance, PERRL Pupil Exam: NORMAL ACCOMODATION - ENT Exam ENT Exam: Mucous Membranes Moist, Normal Oropharynx - Respiratory Exam Respiratory Exam: Clear to Ausculation Bilateral - Cardiovascular Exam Cardiovascular Exam: REGULAR RHYTHM, +S1, +S2 - GI/Abdominal Exam GI & Abdominal Exam: Soft, Normal Bowel Sounds. absent: Rigid, Hyperactive Bowel Sounds - Extremities Exam Extremities Exam: Full ROM, Normal Inspection - Back Exam Back Exam: NORMAL INSPECTION. absent: paraspinal tenderness - Neurological Exam Neurological Exam: Alert, Awake, CN II-XII Intact Assessment and Plan - Assessment and Plan (Free Text) Assessment: Patient is a 77 year old female with a history of DM, HTN, peripheral edema, and arthritis, who presented to the ED with abdominal pain, nausea and vomiting. Plan: Pneumonia - Likely aspiration pneumonia - CXR: right lower lung infiltrate - Abdominal/pelvic CT: right lower lobe consolidation - Blood cx: positive strep pneumo - Mycoplasma pneumo, Legionella: negative - Strep pneumo positive on blood culture. No sensitivities drawn initially. - ID consulted, Dr. Ponce; help appreciated - Medications: - Azithromycin 500mg IVqd Sepsis - Likely secondary to pneumonia - Blood cx: positive strep pneumo - Lactate: 2.1--> 2.9-> 1.0 - Echo :EF <70% :Trace mitral regurgitation :Mild tricuspid regurgitation :Mild pulmonary hypertension :Trace pulmonic valvular regurgitation - ID consulted, Dr. Ponce; help appreciated - Medications: - Azithromycin 500mg IVqd - Cefepime 1g IV Q8h - Vanco 1g IV Q24h Abdominal pain, nausea, vomiting - Abdominal/pelvic CT: diffuse wall thickening of the urinary bladder, cystitis ? right lower lobe consolidation; superior compression deformities of L2 and L3 - Zofran 4mg IV Q6h prn for n/v Hypoglycemic Hx of DM - Accuchecks - Hypoglycemia protocol - Endocrinology consulted, Dr. Lopez; help appreciated - D10W @100mls/hr until glucose is 140--> will switch to D5-1/2NS @100mls/hr. Fluids discontinued - Continue to monitor Anemia - Stool occult: negative - Possibly due to dilution, continue to monitor Hypokalemia -3.5 on today's CMP -Repleted -Will monitor with serial CMP's. Prophylaxis - Protonix 40mg PO daily - Heparin 5000u SC Q12h - PT/OT Dispo: Patient expected to be discharged on Augmentin 875mg PO BID X7 days tomorrow. Case discussed with Dr. Kerr. Management per Dr. Willam Kerr.
[2017-09-30] MEDS ORDERED: Potassium Chloride 20 mEq ER Tab PO ONE (15:30)
[2017-09-30 16:25] VITALS: RESP 20
--- NOTE | 2017-09-30 16:38 | CP.PCM.PN ---
Subjective - Date & Time of Evaluation Date of Evaluation: 09/30/17 Time of Evaluation: 11:40 - Subjective Subjective: patient seen and examined Complaining of chills No shortness of breath and cough afebrile Antibiotics as per ID Objective - Vital Signs/Intake and Output Vital Signs (last 24 hours): Temp Pulse Resp BP Pulse Ox 97.8 F 86 20 147/74 95 09/30/17 16:00 09/30/17 16:05 09/30/17 16:00 09/30/17 16:00 09/30/17 16:00 Intake and Output: 09/30/17 09/30/17 06:59 18:59 Intake Total 920 Output Total 900 800 Balance -900 120 - Medications Medications: Current Medications Acetaminophen (Tylenol 325mg Tab) 650 mg PO Q6H PRN PRN Reason: Pain, Mild (1-3) Last Admin: 09/29/17 21:04 Dose: 650 mg Amoxicillin/Clavulanate Potassium (Augmentin 875 Mg-125 Mg Tab) 1 tab PO Q12H [facility] PRN Reason: Protocol Calcium Carbonate (Oscal) 500 mg PO BID [facility] Last Admin: 09/30/17 10:44 Dose: 500 mg Dextrose (Dextrose 50% Inj) 0 ml IV STAT PRN; Protocol PRN Reason: Hypoglycemia Protocol Last Admin: 09/26/17 00:01 Dose: 50 ml Dextrose (Glutose 15) 0 gm PO ONCE PRN; Protocol PRN Reason: Hypoglycemia Protocol Docusate Sodium (Colace) 100 mg PO HS PRN PRN Reason: Constipation Enalapril Maleate (Vasotec) 10 mg PO BID [facility] Last Admin: 09/30/17 10:44 Dose: 10 mg Folic Acid (Folic Acid) 1 mg PO DAILY [facility] Last Admin: 09/30/17 10:44 Dose: 1 mg Glucagon (Glucagen Diagnostic Kit) 0 mg IM STAT PRN; Protocol PRN Reason: Hypoglycemia Protocol Hydroxychloroquine Sulfate (Plaquenil) 200 mg PO BID [facility] PRN Reason: Protocol Last Admin: 09/30/17 10:44 Dose: 200 mg Ondansetron HCl (Zofran Inj) 4 mg IVP Q6H PRN PRN Reason: Nausea/Vomiting Last Admin: 09/30/17 01:36 Dose: 4 mg Oxybutynin Chloride (Ditropan Xl) 15 mg PO BID PRN PRN Reason: Urinary discomt Pantoprazole Sodium (Protonix Ec Tab) 40 mg PO DAILY [facility] Last Admin: 09/30/17 10:44 Dose: 40 mg Prednisone (Prednisone Tab) 10 mg PO DAILY [facility] Last Admin: 09/30/17 10:44 Dose: 10 mg - Labs Labs: 09/30/17 07:08 09/30/17 07:08 PT 14.6 SECONDS (9.7-12.2) H 09/24/17 00:10 INR 1.3 09/24/17 00:10 APTT 27 SECONDS (21-34) 09/24/17 00:10 Assessment and Plan (1) Pneumonia Status: Acute (2) Severe sepsis Status: Acute (3) IKE (acute kidney injury) Status: Acute
[2017-09-30] MEDS: Amoxicillin-Clav 875-125 mg Tab PO SCH (17:08)
--- NOTE | 2017-09-30 18:04 | PN ---
Copied To: Gabbi Lopez MD Attending MD: Gabbi Lopez MD DATE: 09/30/2017 ENDO FOLLOWUP NOTE LOCATION: Room 566. SUBJECTIVE: This is a 77-year-old female with recent uncontrolled type 2 diabetes presenting here with symptomatic hypoglycemia and received vigorous D10W infusion followed by D5 and half normal saline infusion was given. Her glycemic levels have since improved clinically and metabolically as noted thereof. The overnight glucose studies have ranged from 95 to 160 and 192 mg/dL. LABORATORY DATA: Her latest chemistry showed a BUN of 9, sodium 139, potassium 3.5, chloride 102, CO2 of 29, glucose 95, and creatinine 1. ASSESSMENT AND PLAN: So, at this time, we will continue the same on fingerstick glucose testing with no extra coverage scale as ordered. We will hold off the resumption of any oral hypoglycemic therapy for now and observe her day to day glycemic fluctuations and if at all indicated may start her on a very low dose short acting oral hypoglycemic therapy as indicated. We will follow with you. Gabbi Lopez MD
--- NOTE | 2017-09-30 19:08 | CP.PCM.PN ---
Subjective - Date & Time of Evaluation Date of Evaluation: 09/30/17 Time of Evaluation: 09:00 - Subjective Subjective: clinically same Objective - Vital Signs/Intake and Output Vital Signs (last 24 hours): Temp Pulse Resp BP Pulse Ox 97.8 F 85 20 147/74 95 09/30/17 16:00 09/30/17 16:48 09/30/17 16:00 09/30/17 17:08 09/30/17 16:00 Intake and Output: 09/30/17 10/01/17 18:59 06:59 Intake Total 920 Output Total 1200 Balance -280 - Medications Medications: Current Medications Acetaminophen (Tylenol 325mg Tab) 650 mg PO Q6H PRN PRN Reason: Pain, Mild (1-3) Last Admin: 09/29/17 21:04 Dose: 650 mg Amoxicillin/Clavulanate Potassium (Augmentin 875 Mg-125 Mg Tab) 1 tab PO Q12H BARNEY PRN Reason: Protocol Last Admin: 09/30/17 17:08 Dose: 1 tab Calcium Carbonate (Oscal) 500 mg PO BID [facility] Last Admin: 09/30/17 17:08 Dose: 500 mg Dextrose (Dextrose 50% Inj) 0 ml IV STAT PRN; Protocol PRN Reason: Hypoglycemia Protocol Last Admin: 09/26/17 00:01 Dose: 50 ml Dextrose (Glutose 15) 0 gm PO ONCE PRN; Protocol PRN Reason: Hypoglycemia Protocol Docusate Sodium (Colace) 100 mg PO HS PRN PRN Reason: Constipation Enalapril Maleate (Vasotec) 10 mg PO BID [facility] Last Admin: 09/30/17 17:08 Dose: 10 mg Folic Acid (Folic Acid) 1 mg PO DAILY [facility] Last Admin: 09/30/17 10:44 Dose: 1 mg Glucagon (Glucagen Diagnostic Kit) 0 mg IM STAT PRN; Protocol PRN Reason: Hypoglycemia Protocol Hydroxychloroquine Sulfate (Plaquenil) 200 mg PO BID BARNEY PRN Reason: Protocol Last Admin: 09/30/17 17:08 Dose: 200 mg Ondansetron HCl (Zofran Inj) 4 mg IVP Q6H PRN PRN Reason: Nausea/Vomiting Last Admin: 09/30/17 01:36 Dose: 4 mg Oxybutynin Chloride (Ditropan Xl) 15 mg PO BID PRN PRN Reason: Urinary discomt Pantoprazole Sodium (Protonix Ec Tab) 40 mg PO DAILY [facility] Last Admin: 09/30/17 10:44 Dose: 40 mg Prednisone (Prednisone Tab) 10 mg PO DAILY [facility] Last Admin: 09/30/17 10:44 Dose: 10 mg - Labs Labs: 09/30/17 07:08 09/30/17 07:08 PT 14.6 SECONDS (9.7-12.2) H 09/24/17 00:10 INR 1.3 09/24/17 00:10 APTT 27 SECONDS (21-34) 09/24/17 00:10 - Constitutional Appears: Well - Head Exam Head Exam: ATRAUMATIC, NORMAL INSPECTION, NORMOCEPHALIC - Eye Exam Eye Exam: EOMI, Normal appearance, PERRL Pupil Exam: NORMAL ACCOMODATION, PERRL - ENT Exam ENT Exam: Mucous Membranes Moist, Normal Exam - Neck Exam Neck Exam: Full ROM, Normal Inspection. absent: Lymphadenopathy - Respiratory Exam Respiratory Exam: Decreased Breath Sounds - Cardiovascular Exam Cardiovascular Exam: REGULAR RHYTHM, +S1, +S2 - GI/Abdominal Exam GI & Abdominal Exam: Soft, Diminished Bowel Sounds - Rectal Exam Rectal Exam: Deferred
[2017-10-01] MEDS: Amoxicillin-Clav 875-125 mg Tab PO SCH (05:46)
--- NOTE | 2017-10-01 07:35 | CP.PCM.PN ---
Subjective - Date & Time of Evaluation Date of Evaluation: 10/01/17 Time of Evaluation: 07:34 - Subjective Subjective: Progress Note for Dr. Meggan Kerr Patient seen and examined at bedside. Per nursing no acute events occurred overnight. Patient reports an improvement in her breathing upon today's visit. Patient reports an increase in appetite. Patient denies any chest pain, fevers , chills, nausea, vomiting, changes in vision, or any other complaints. Objective - Vital Signs/Intake and Output Vital Signs (last 24 hours): Temp Pulse Resp BP Pulse Ox 97.8 F 98 H 20 138/67 95 09/30/17 23:46 09/30/17 23:46 09/30/17 23:46 09/30/17 23:46 09/30/17 23:46 Intake and Output: 10/01/17 10/01/17 06:59 18:59 Intake Total 500 Output Total 650 Balance -150 - Medications Medications: Current Medications Acetaminophen (Tylenol 325mg Tab) 650 mg PO Q6H PRN PRN Reason: Pain, Mild (1-3) Last Admin: 09/29/17 21:04 Dose: 650 mg Amoxicillin/Clavulanate Potassium (Augmentin 875 Mg-125 Mg Tab) 1 tab PO Q12H BARNEY PRN Reason: Protocol Last Admin: 10/01/17 05:46 Dose: 1 tab Calcium Carbonate (Oscal) 500 mg PO BID [facility] Last Admin: 09/30/17 17:08 Dose: 500 mg Dextrose (Dextrose 50% Inj) 0 ml IV STAT PRN; Protocol PRN Reason: Hypoglycemia Protocol Last Admin: 09/26/17 00:01 Dose: 50 ml Dextrose (Glutose 15) 0 gm PO ONCE PRN; Protocol PRN Reason: Hypoglycemia Protocol Docusate Sodium (Colace) 100 mg PO HS PRN PRN Reason: Constipation Enalapril Maleate (Vasotec) 10 mg PO BID [facility] Last Admin: 09/30/17 17:08 Dose: 10 mg Folic Acid (Folic Acid) 1 mg PO DAILY [facility] Last Admin: 09/30/17 10:44 Dose: 1 mg Glucagon (Glucagen Diagnostic Kit) 0 mg IM STAT PRN; Protocol PRN Reason: Hypoglycemia Protocol Hydroxychloroquine Sulfate (Plaquenil) 200 mg PO BID BARNEY PRN Reason: Protocol Last Admin: 09/30/17 17:08 Dose: 200 mg Ondansetron HCl (Zofran Inj) 4 mg IVP Q6H PRN PRN Reason: Nausea/Vomiting Last Admin: 09/30/17 01:36 Dose: 4 mg Oxybutynin Chloride (Ditropan Xl) 15 mg PO BID PRN PRN Reason: Urinary discomt Pantoprazole Sodium (Protonix Ec Tab) 40 mg PO DAILY [facility] Last Admin: 09/30/17 10:44 Dose: 40 mg Prednisone (Prednisone Tab) 10 mg PO DAILY [facility] Last Admin: 09/30/17 10:44 Dose: 10 mg - Labs Labs: 09/30/17 07:08 09/30/17 07:08 PT 14.6 SECONDS (9.7-12.2) H 09/24/17 00:10 INR 1.3 09/24/17 00:10 APTT 27 SECONDS (21-34) 09/24/17 00:10 - Head Exam Head Exam: ATRAUMATIC, NORMAL INSPECTION, NORMOCEPHALIC - Eye Exam Eye Exam: EOMI, Normal appearance - ENT Exam ENT Exam: Mucous Membranes Moist, Normal Oropharynx - Neck Exam Neck Exam: absent: Lymphadenopathy, Thyromegaly - Respiratory Exam Respiratory Exam: Clear to Ausculation Bilateral, NORMAL BREATHING PATTERN. absent: Prolonged Expiratory Phase, Respiratory Distress - Cardiovascular Exam Cardiovascular Exam: REGULAR RHYTHM, +S1, +S2 - GI/Abdominal Exam GI & Abdominal Exam: Soft, Normal Bowel Sounds - Extremities Exam Extremities Exam: Full ROM. absent: Joint Swelling, Pedal Edema - Neurological Exam Neurological Exam: Alert, Awake - Psychiatric Exam Psychiatric exam: Normal Affect, Normal Mood - Skin Skin Exam: Dry, Intact Assessment and Plan - Assessment and Plan (Free Text) Assessment: Patient is a 77 year old female with a history of DM, HTN, peripheral edema, and arthritis, who presented to the ED with abdominal pain, nausea and vomiting. Plan: Pneumonia - Likely aspiration pneumonia - CXR: right lower lung infiltrate - Abdominal/pelvic CT: right lower lobe consolidation - Blood cx: positive strep pneumo - Mycoplasma pneumo, Legionella: negative - Strep pneumo positive on blood culture. No sensitivities drawn initially. - ID consulted, Dr. Ponce; help appreciated - Medications: -Augmentin 1 tab PO Q12H (Started 09/30/17) - Azithromycin 500mg IVqd (Discontinued 09/24/17) Sepsis - Likely secondary to pneumonia - Blood cx: positive strep pneumo - Lactate: 2.1--> 2.9-> 1.0 - Echo :EF <70% :Trace mitral regurgitation :Mild tricuspid regurgitation :Mild pulmonary hypertension :Trace pulmonic valvular regurgitation - ID consulted, Dr. Ponce; help appreciated - Medications: -Augmentin 1 tab PO Q12H (Started 09/30/17) - Azithromycin 500mg IVqd (Discontinued 09/24/17) - Cefepime 1g IV Q8h (Discontinued 09/25/17) - Vanco 1g IV Q24h(Discontinued 09/25/17) Abdominal pain, nausea, vomiting - Abdominal/pelvic CT: diffuse wall thickening of the urinary bladder, cystitis ? right lower lobe consolidation; superior compression deformities of L2 and L3 - Zofran 4mg IV Q6h prn Hypoglycemic Hx of DM - Accuchecks - Hypoglycemia protocol - Endocrinology consulted, Dr. Lopez; help appreciated - D10W @100mls/hr until glucose is 140--> will switch to D5-1/2NS @100mls/hr. Fluids discontinued - Continue to monitor Anemia - Stool occult: negative - Possibly due to dilution, continue to monitor Hypokalemia -Repleted -Will monitor with serial CMP's. Osteoporosis -Calcium Carbonate (Oscal) 500 mg PO BID BARNEY Urinary Incontinence -Oxybutynin Chloride (Ditropan Xl) 15 mg PO BID PRN Prophylaxis - Protonix 40mg PO daily - Heparin 5000u SC Q12h - PT/OT Dispo: Patient expected to be discharged on Augmentin 875mg PO BID X7 days tomorrow. Discharge Instructions: 1. Follow up with PMD within 5 to 7 days upon discharge. 2.Return to hospital for any new or worsening symptoms. Medications: 1. Augmentin 875mg PO BID, #14, No refills Case discussed with Dr. Kerr. Management per Dr. Willam Kerr.
--- NOTE | 2017-10-01 07:42 | PN ---
Copied To: Brock Ponce MD Attending MD: Brock Ponce MD DATE: 09/30/2017 SUBJECTIVE: The patient is feeling better. She denied any complaints. She wanted to go back to rehab. [facility] She was also agreeable to get pneumonia vaccine, and I think they should give it to her. PHYSICAL EXAMINATION: VITAL SIGNS: T-max is 97.8, pulse 85, blood pressure 147/74, respirations are 20. HEAD: Atraumatic, normocephalic. NECK: Supple. LUNGS: Clear. Decreased breath sounds bilaterally. HEART: S1, S2 are regular. ABDOMEN: Soft, nontender. No guarding, no rigidity present. EXTREMITIES: Have no edema. I went through the culture report, and I spoke to the micro lab and it seems that they said her culture is very sensitive to penicillin, so I decided to send her on Augmentin for 1 week and to follow up with the x-ray. The patient also can get a pneumonia vaccine any time and should get PREVNAR. She did have pneumococcal pneumonia and COPD and sepsis and is recovering from it, and a followup x-ray should be done. Brock Ponce MD
[2017-10-01 08:03] VITALS: O2SAT 97
[2017-10-01] MEDS ORDERED: Amoxicillin-Clav 875-125 mg Tab PO SCH (09:00)
[2017-10-01] MEDS: Pantoprazole 40 mg EC Tab PO SCH (10:44)
[2017-10-01 11:55] LABS: BASO # 0.1 K/uL (0.0-0.2); BASO % 0.9 % (0.0-2.0); EOS # 0.2 K/uL (0.0-0.7); EOS % 2.9 % (0.0-4.0); HEMOGLOBIN 9.5 g/dL (11.0-16.0); LYMPH # 1.3 K/uL (1.0-4.3); LYMPH % 18.8 % (20.0-40.0); MEAN CELL VOLUME 86.1 fL (81.0-99.0); MEAN CORPUSCULAR HEMOGLOBIN 28.9 pg (27.0-31.0); MEAN CORPUSCULAR HGB CONC 33.6 g/dL (33.0-37.0); MEAN PLATELET VOLUME 7.9 fL (7.2-11.7); MONO # 0.6 K/uL (0.0-0.8); MONO % 8.4 % (0.0-10.0); NEUT # 4.8 K/uL (1.8-7.0); RBC 3.29 Mil/uL (3.80-5.20); RED CELL DISTRIBUTION WIDTH 14.9 % (11.5-14.5)
[2017-10-01 12:25] LABS: ALB/GLOB RATIO 0.9 (1.0-2.1); ALBUMIN 2.9 g/dL (3.5-5.0); ALT/SGPT 22 U/L (9-52); AST/SGOT 12 U/L (14-36); BLOOD UREA NITROGEN 9 mg/dL (7-17); CALCIUM 7.9 mg/dl (8.6-10.4); GFR AFRICAN-AMERICAN > 60; GFR NON-AFRICAN AMERICAN 54
[2017-10-01] MEDS ORDERED: Pneumococcal 23-Valent Vaccine IM ONE (15:41)
[2017-10-01 16:47] VITALS: BP 128/69; PULSE 81; TEMP 98.1
--- NOTE | 2017-10-01 20:20 | PN ---
Copied To: Gabbi Lopez MD Attending MD: Gabbi Lopez MD DATE: 10/01/2017 ENDO FOLLOWUP NOTE LOCATION: Room 566. SUBJECTIVE: This is a 77-year-old female with recent admission for acute pneumonitis, currently receiving antibiotic management and is also being followed closely for metabolic management. Her glycemic levels are fluctuating, but much improved at this time and the latest glucose levels have ranged from 139 to 219 mg/dL. LABORATORY DATA: Her latest chemistries showed a BUN of 9, sodium 135, potassium 3.7, chloride 98, CO2 of 26, glucose 197, and creatinine 1. ASSESSMENT AND PLAN: As hypoglycemic levels have supervened, we will add a very low dose and short-acting oral hypoglycemic therapy given as Prandin at 0.5 mg b.i.d. before meals as ordered. We will titrate incrementally as indicated to optimize metabolic control. We will continue the low dose correction scale using regular insulin as given. We will obtain serial chemistries and supplement accordingly as needed. Moreover, we will titrate her dose regimen accordingly to optimize metabolic control. We will follow. Gabbi Lopez MD
== END 2017-10-01 17:14 | DRG 871 ==
LOC: C.ER 22:01 → C.9E 09-24 03:01 → C.9I 09-24 06:23 → C.5S 09-25 06:43
PROVIDERS: ADMIT Internal Medicine Nephrology; ATTEND Internal Medicine Nephrology
DX: A40.3 Sepsis due to Streptococcus pneumoniae (principal); J15.4 Pneumonia due to other streptococci; R65.21 Severe sepsis with septic shock; N39.0 Urinary tract infection, site not specified; N17.9 Acute kidney failure, unspecified; E87.2 Acidosis; B95.3 Streptococcus pneumoniae as the cause of diseases classified elsewhere; I25.10 Atherosclerotic heart disease of native coronary artery without angina pectoris; E11.65 Type 2 diabetes mellitus with hyperglycemia; I11.0 Hypertensive heart disease with heart failure; E11.36 Type 2 diabetes mellitus with diabetic cataract; R41.82 Altered mental status, unspecified; I95.9 Hypotension, unspecified; I50.9 Heart failure, unspecified; M17.10 Unilateral primary osteoarthritis, unspecified knee; D64.9 Anemia, unspecified; F17.210 Nicotine dependence, cigarettes, uncomplicated; R32 Unspecified urinary incontinence; E78.5 Hyperlipidemia, unspecified; Z23 Encounter for immunization; Z87.440 Personal history of urinary (tract) infections; Z90.49 Acquired absence of other specified parts of digestive tract; Z91.81 History of falling; Z91.012 Allergy to eggs; Z88.0 Allergy status to penicillin

== ENCOUNTER 2017-11-07 19:18 | Inpatient (IN) | payer MEDICARE, OTHER ==
--- NOTE | 2017-11-07 19:39 | C.PDOC ---
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 He states a table accidentally went on his toe. The patient reports increased discoloration and redness to the top of foot. He was discharged on 09/24 s/p sepsis and pneumonia. INCR PAIN, SWELLING L 2ND TOE SP INJURY 3 DAYS AGO. PS TABLE ACCIDENTALLY WENT ON TOE. INCR DISCOLORATION, REDNESS TOP OF FOOT. DC 09/24 S/P SEPSIS, PNEUMONIA EXAM NONTOXIC NAD EXT L 2ND TOE BRUISING, SWELLING, LIMITED ROM DUE TO PAIN. CHRONIC NAIL FUNGAL INFXN, NO GROSS SUBUNG HEMATOMA. NO DEFORM. CHRONIC LIMITED ROM B/L LE SKIN INTACT +ERYTHEMA MID DORSAL L FOOT. REMAINDER NEG Time Seen by Provider: 11/07/17 19:22 History Per: Patient History/Exam Limitations: no limitations Onset/Duration Of Symptoms: Days Current Symptoms Are (Timing): Still Present Recent travel outside of the [place]: No - Ankle/Foot Description Of Injury: Other (Table went on toe) Past Medical History Reviewed: Historical Data, Nursing Documentation, Vital Signs Vital Signs: Last Vital Signs Temp 97.8 F 11/07/17 22:27 Pulse 84 11/07/17 22:27 Resp 16 11/07/17 22:27 BP 115/56 L 11/07/17 22:27 Pulse Ox 96 11/07/17 22:29 - Medical History PMH: Arthritis, Diabetes, Gall Bladder Disease (CHOLEYCSTECTOMY), HTN, Peripheral Edema Denies: Depression Surgical History: Cholecystectomy, Tonsillectomy - [facility] Procedures APPLICATION OF SPLINT (10/29/03) DX ULTRASOUND-DIGESTIVE (11/26/13) ESOPHAGOGASTRODUODENOSCOPY [EGD] W/CLOSED BIOPSY (11/26/13) INTRAOPER CHOLANGIOGRAM (11/26/13) LAPAROSCOPIC CHOLECYSTECTOMY (11/26/13) VACCINATION NEC (08/18/14) Family History: States: Unknown Family Hx - Social History Hx Alcohol Use: No Hx Substance Use: No - Immunization History Hx Tetanus Toxoid Vaccination: No Hx Influenza Vaccination: No Hx Pneumococcal Vaccination: No Review Of Systems Except As Marked, All Systems Reviewed And Found Negative. Constitutional: Negative for: Fever Musculoskeletal: Positive for: Foot Pain (left foot ) Skin: Positive for: Bruising (left, 2nd toe), Other (swelling/discoloration to left, 2nd toe) Physical Exam - Physical Exam Appears: Non-toxic, No Acute Distress Skin: Other (intact, erythema mid dorsal left foot) Head: Atraumatic, Normacephalic Eye(s): bilateral: PERRL, EOMI Ear(s): Bilateral: Normal Oral Mucosa: Moist Neck: Normal ROM Chest: Symmetrical Cardiovascular: Rhythm Regular, No Murmur Respiratory: No Rales, No Rhonchi, No Wheezing, Other (NARD) Gastrointestinal/Abdominal: Bowel Sounds, Soft, No Tenderness Extremity: No Normal ROM (due to pain. Chronic limited ROM B/L LE), No Deformity , Swelling (to left 2nd toe), No Other (Subungunal Hematoma) Extremity: Bilateral: No Pedal Edema, Other (chronic nail fungal infection) Pulses: Left Dorsalis Pedis: Normal, Right Dorsalis Pedis: Normal Neurological/Psych: Oriented x3, Normal Speech ED Course And Treatment - Laboratory Results Result Diagrams: 11/07/17 19:51 11/07/17 19:51 ECG: Interpreted By Me ECG Rhythm: Sinus Rhythm, PVC ECG Interpretation: Normal Rate From EC O2 Sat by Pulse Oximetry: 96 (RA) Pulse Ox Interpretation: Normal - Radiology CXR: Interpreted by Me CXR Interpretation: Yes: No Acute Disease - Other Rad L 2 TOE X-Ray: Interpreted by Me (NEG) Progress - Re-Evaluation Re-evaluation Note: 11/07/17 21:02 D/W PODIATRY RESIDENT WILL EVAL IN ER 11/07/17 21:13 PT COMFORTABLE NAD. STATES DOES NOT WISH ADMISSION. PENDING PODIATRY EVAL. ABX, PAIN RX, REEVAL 11/07/17 22:23 SP PODIATRY EVAL, CONCERN FOR VASCULAR CHANGES. RECOMMEND ADMISSION, VASC CONSULT. WILL ADMIT MEDICINE. PT AGREES W PLAN 11/07/17 22:25 D/W DR Willam MORROW WILL ADMIT - Data Reviewed Data Reviewed: Lab, Diagnostic imaging, Old records Medical Decision Making Medical Decision Making: Impression: 77 y/o female with increased pain,swelling and discoloration to 2nd toe on left foot s/p injury 3 days ago Plan: -BMP -CBC -Left Foot X-Ray Disposition Counseled Patient/Family Regarding: Studies Performed, Diagnosis - Disposition Disposition: HOSPITALIZED Disposition Time: 22:25 Condition: STABLE - POA Present On Arrival: Falls Or Trauma - Clinical Impression Clinical Impression: Vascular insufficiency of extremity, Toe contusion - PA / CARE ASSOCIATE / Resident Statement MD/DO has reviewed & agrees with the documentation as recorded. - Scribe Statement The provider has reviewed the documentation as recorded by the Scribe (Marlen Damon) All medical record entries made by the Scribe were at my direction and personally dictated by me. I have reviewed the chart and agree that the record accurately reflects my personal performance of the history, physical exam, medical decision making, and the department course for this patient. I have also personally directed, reviewed, and agree with the discharge instructions and disposition.
[2017-11-07 19:53] LABS: BASO # 0.1 K/uL (0.0-0.2); BASO % 1.1 % (0.0-2.0); EOS # 0.3 K/uL (0.0-0.7); EOS % 5.1 % (0.0-4.0); HEMOGLOBIN 10.2 g/dL (11.0-16.0); LYMPH # 2.5 K/uL (1.0-4.3); LYMPH % 37.2 % (20.0-40.0); MEAN CELL VOLUME 87.5 fL (81.0-99.0); MEAN CORPUSCULAR HEMOGLOBIN 28.5 pg (27.0-31.0); MEAN CORPUSCULAR HGB CONC 32.5 g/dL (33.0-37.0); MEAN PLATELET VOLUME 7.1 fL (7.2-11.7); MONO # 0.8 K/uL (0.0-0.8); MONO % 11.6 % (0.0-10.0); NRBC % 0.1 % (0.0-2.0); RBC 3.57 Mil/uL (3.80-5.20); RED CELL DISTRIBUTION WIDTH 14.4 % (11.5-14.5); WHITE BLOOD COUNT 6.7 K/uL (4.8-10.8)
[2017-11-07 20:07] LABS: CALCIUM 9.4 mg/dl (8.6-10.4)
[2017-11-07] MEDS ORDERED: Vancomycin 1 GM 1 GM/250 ML BAG IVPB ONE (21:35)
--- NOTE | 2017-11-07 22:28 | CP.PCM.CON ---
History of Present Illness - History of Present Illness History of Present Illness: Podiatry consult notes for attending Dr. Davis 77 Y/O F patient with PMH of DM seen and evaluated in the ED for color changes and pain in her left 2nd toe. Patient is AAO X 3 and NAD. Patient states that 3 days ago she stubbed her left 2nd toe against the table. She states that [facility] nurse [facility] the [facility] immediately soaked her left foot in Epson salt and warm water. Patient states that she started to have pain 4/10 on VAS scale. She states that the pain is sharp and not relieved by Tylenol. Patient states that today she started to see color changes in her toe. She states that her 2nd toe turned dark purple. Patient states that her toe also started to get cold. patient denies any tingling, numbness or burning sensation in her feet. She denies any other pedal complaint at this time. She denies any recent F/N/V/C or SOB. PMH: DM. PSH: Tonsillectomy. Allergies: Penicillins, Eggs and orange. Social Hx: Ex-smoker (Smoked 1/2 pack of cigarettes for 60 years), Denies ETOH or illicit drug use. Review of Systems - Review of Systems Review of Systems: As per HPI Past Patient History - Infectious Disease Hx of Infectious Diseases: None - Tetanus Immunizations Tetanus Immunization: Unknown - Past Medical History & Family History Past Medical History?: Yes - Past Social History Smoking Status: Former Smoker - CARDIAC Hx Hypertension: Yes Hx Peripheral Edema: Yes - PULMONARY Hx Respiratory Disorders: Yes (SMOKED CIGARETTES SINCE 16 YRS OLD.CURRENTLY SMOKED 1/2 PPD) - HEENT Hx HEENT Problems: Yes (recently having blurred vision both eyes-CATARACTS) Hx Cataracts: Yes (BILATERAL BLURRY VISION) - ENDOCRINE/METABOLIC Hx Endocrine Disorders: Yes Hx Diabetes Mellitus Type 2: Yes - HEMATOLOGICAL/ONCOLOGICAL Hx Blood Disorders: Yes Other/Comment: SEPSIS 2NDARY TO UTI - INTEGUMENTARY Hx Dermatological Problems: Yes (MASD-IN BETWEEN GLUTEAL FOLDS SECONDARY TO INCONTINENCY) Other/Comment: IASD - MUSCULOSKELETAL/RHEUMATOLOGICAL Hx Arthritis: Yes - GASTROINTESTINAL Hx Gall Bladder Disease: Yes (CHOLEYCSTECTOMY) - GENITOURINARY/GYNECOLOGICAL Hx Genitourinary Disorders: Yes Hx Incontinence: Yes (urine/frequency) Hx Urinary Tract Infection: Yes Other/Comment: PYELONEPHRITIS - PSYCHIATRIC Hx Depression: No Hx Substance Use: No - SURGICAL HISTORY Hx Cholecystectomy: Yes Hx Tonsillectomy: Yes - ANESTHESIA Hx Anesthesia: Yes Hx Anesthesia Reactions: No Hx Malignant Hyperthermia: No Meds Allergies/Adverse Reactions: Allergies Allergy/AdvReac Type Severity Reaction Status Date / Time egg Allergy RASH Verified 11/07/17 19:50 ORANGE Allergy RASH Verified 11/07/17 19:50 Penicillins Allergy Verified 11/07/17 19:50 - Medications Medications: Current Medications Vancomycin HCl 1,000 mg/ (Sodium Chloride) 100 mls @ 75 mls/hr IV STAT STA PRN Reason: Protocol Stop: 11/07/17 22:31 Last Admin: 11/07/17 21:35 Dose: 75 mls/hr Physical Exam - Constitutional Appears: Well, Non-toxic, No Acute Distress - Head Exam Head Exam: ATRAUMATIC, NORMOCEPHALIC - Extremities Exam Additional comments: LE focused exam: Vasc: DP/PT palpable 1/4 b/l. Cap refill < 3 sec in all digits except the left 2nd digit (couldn't be assessed due to the color change). No jacquelyn b/l. Mild erythema extending over the left 2nd metatarsal bone. Temp gradient warm to cool from proximal to distal. 2nd left toe is cold to touch. Neuro: Gross sensation intact, Protective sensation diminished. Derm: Mild erythema extending over the left 2nd metatarsal bone. 2nd left toe is dark purple in color. No open lesions. Toe nails thickened, dystrophic and discolored X 10. MSK: Pain on palpating the left 2nd toe. Pain with both active and passive ROM of the left 2nd toe. Muscle power intact 5/5 in all groups. - Neurological Exam Neurological exam: Alert, Oriented x3 - Psychiatric Exam Psychiatric exam: Normal Affect, Normal Mood Results - Vital Signs Recent Vital Signs: Last Vital Signs Temp 98 F 11/07/17 21:08 Pulse 83 11/07/17 21:08 Resp 14 11/07/17 21:08 BP 124/57 L 11/07/17 21:08 Pulse Ox 96 11/07/17 21:15 - Labs Result Diagrams: 11/07/17 19:51 11/07/17 19:51 Labs: Laboratory Results - last 24 hr 11/07/17 11/07/17 19:51 19:51 WBC 6.7 RBC 3.57 L Hgb 10.2 L Hct 31.3 L MCV 87.5 MCH 28.5 MCHC 32.5 L RDW 14.4 Plt Count 185 MPV 7.1 L Neut % (Auto) 45.0 L Lymph % (Auto) 37.2 [place] % (Auto) 11.6 H Eos % (Auto) 5.1 H Baso % (Auto) 1.1 Neut # (Auto) 3.0 Lymph # (Auto) 2.5 [place] # (Auto) 0.8 Eos # (Auto) 0.3 Baso # (Auto) 0.1 Sodium 140 Potassium 4.3 Chloride 102 Carbon Dioxide 27 Anion Gap 15 BUN 13 Creatinine 1.4 H Est GFR ( Amer) 44 Est GFR (Non-Af Amer) 37 Random Glucose 126 H Calcium 9.4 Assessment & Plan - Assessment and Plan (Free Text) Assessment: 77 Y/O F patient seen and evaluated in the ED for left 2nd toe vascular insufficiency and gangrenous changes. Plan: Patient seen and evaluated in the ED. Plan discussed in details with attending Dr. Davis Labs, Chart and vitals reviewed; Afebrile, No leukocytosis (WBCs 6.70). X-ray left foot and toes reviewed; No bone fractures noted. Discussed with the patient that her problem is most propably vascular. Discussed with the patient that she needs to be admitted as her toe might be in risk of becoming gangrenous. ordered vascular consult by the ED doctor. Patient received an empiric dose of Vancomycin 1 gm IV stat. Patient expressed verbal understanding. Patient will be admitted by the primary team. Podiatry will follow up the patient while in house. - Date & Time Date: 11/07/17 Time: 22:27
[2017-11-07 22:46] LABS: PROTHROMBIN TIME 10.6 SECONDS (9.7-12.2)
[2017-11-08] MEDS ORDERED: Home Med 1 UNIT (Acetaminophen [Tylenol] 650 MG) PO PRN (00:05)
[2017-11-08 01:17] VITALS: RESP 20
--- NOTE | 2017-11-08 01:22 | CP.PCM.CON ---
History of Present Illness - History of Present Illness History of Present Illness: Vascular surgery consult note for Dr. Javsir Amezquita, PGY-2 Pt S & E at bedside at 0030 77F w/PMH sig for DM consulted for vascular insuffiency of Left 2nd toe. Pt reports running over her left 2nd toe with a table 2 days [employer] with resulting pain, swelling, purple color change. Pain is sharp. No alleviating factors identified. Aggravated by touch/pressure. Pt reports she has had toe pain x 1 year prior to trauma to toe. Denies tingling, numbness, F & C, N & C, SOB, CP, PMH: DM PSH: tonsillectomy All: eggs, oranges, PCN SH: admits to hx of tobacco use (1/2ppd x 60 yrs), denies ETOH or illicit drugs FH: Non contributory Past Patient History - Infectious Disease Hx of Infectious Diseases: None - Tetanus Immunizations Tetanus Immunization: Unknown - Past Medical History & Family History Past Medical History?: Yes - Past Social History Smoking Status: Former Smoker - CARDIAC Hx Hypertension: Yes Hx Peripheral Edema: Yes - PULMONARY Hx Respiratory Disorders: Yes (SMOKED CIGARETTES SINCE 16 YRS OLD.CURRENTLY SMOKED 1/2 PPD) - HEENT Hx HEENT Problems: Yes (recently having blurred vision both eyes-CATARACTS) Hx Cataracts: Yes (BILATERAL BLURRY VISION) - ENDOCRINE/METABOLIC Hx Endocrine Disorders: Yes Hx Diabetes Mellitus Type 2: Yes - HEMATOLOGICAL/ONCOLOGICAL Hx Blood Disorders: Yes Other/Comment: SEPSIS 2NDARY TO UTI - INTEGUMENTARY Hx Dermatological Problems: Yes (MASD-IN BETWEEN GLUTEAL FOLDS SECONDARY TO INCONTINENCY) Other/Comment: IASD - MUSCULOSKELETAL/RHEUMATOLOGICAL Hx Arthritis: Yes - GASTROINTESTINAL Hx Gall Bladder Disease: Yes (CHOLEYCSTECTOMY) - GENITOURINARY/GYNECOLOGICAL Hx Genitourinary Disorders: Yes Hx Incontinence: Yes (urine/frequency) Hx Urinary Tract Infection: Yes Other/Comment: PYELONEPHRITIS - PSYCHIATRIC Hx Depression: No Hx Substance Use: No - SURGICAL HISTORY Hx Cholecystectomy: Yes Hx Tonsillectomy: Yes - ANESTHESIA Hx Anesthesia: Yes Hx Anesthesia Reactions: No Hx Malignant Hyperthermia: No Meds Allergies/Adverse Reactions: Allergies Allergy/AdvReac Type Severity Reaction Status Date / Time egg Allergy RASH Verified 11/07/17 19:50 ORANGE Allergy RASH Verified 11/07/17 19:50 Penicillins Allergy Verified 11/07/17 19:50 - Medications Medications: Current Medications Aspirin (Aspirin) 325 mg PO DAILY [facility] Docusate Sodium (Colace) 100 mg PO HS [facility] Enalapril Maleate (Vasotec) 1 mg PO BID [facility] Enoxaparin Sodium (Lovenox) 40 mg SC DAILY [facility] Famotidine (Pepcid) 20 mg PO DAILY [facility] Folic Acid (Folic Acid) 1 mg PO DAILY [facility] Glimepiride (Amaryl) 4 mg PO DAILY [facility] Home Med (Acetaminophen [Tylenol]) 650 mg PO Q4 PRN PRN Reason: Pain, Mild (1-3) Home Med (Calcium Carbonate/Vitamin D3 [Calcium 600 + Vit D Tablet]) 1 each PO BID [facility] Hydroxychloroquine Sulfate (Plaquenil) 200 mg PO BID [facility] PRN Reason: Protocol Oxybutynin Chloride (Ditropan Xl) 15 mg PO BID [facility] Prednisone (Prednisone Tab) 10 mg PO DAILY [facility] Physical Exam - Constitutional Appears: Non-toxic, No Acute Distress - Head Exam Head Exam: ATRAUMATIC, NORMAL INSPECTION, NORMOCEPHALIC - Eye Exam Eye Exam: EOMI, Normal appearance - ENT Exam ENT Exam: Mucous Membranes Moist, Normal Exam - Neck Exam Neck exam: Positive for: Full Rom, Normal Inspection - Respiratory Exam Respiratory Exam: NORMAL BREATHING PATTERN - Cardiovascular Exam Cardiovascular Exam: REGULAR RHYTHM, +S1, +S2 - GI/Abdominal Exam GI & Abdominal Exam: Soft. absent: Distended, Tenderness - Extremities Exam Additional comments: Left 2nd toe grossly swollen, purple, tender to palpation, dorsal aspect of foot with color changes, non tender Unable to appreciate PT bilaterally, palpable DP bilaterally - Neurological Exam Neurological exam: CN II-XII Intact, Oriented x3 Additional comments: sleeping, but arousable - Psychiatric Exam Psychiatric exam: Normal Affect, Normal Mood - Skin Skin Exam: Dry, Intact, Warm Results - Vital Signs Recent Vital Signs: Last Vital Signs Temp 98.1 F 11/08/17 00:20 Pulse 70 11/08/17 00:20 Resp 20 11/08/17 00:20 BP 104/66 11/08/17 00:20 Pulse Ox 98 11/08/17 00:20 - Labs Result Diagrams: 11/07/17 19:51 11/07/17 19:51 Labs: Laboratory Results - last 24 hr 11/07/17 11/07/17 11/07/17 19:51 19:51 22:30 WBC 6.7 RBC 3.57 L Hgb 10.2 L Hct 31.3 L MCV 87.5 MCH 28.5 MCHC 32.5 L RDW 14.4 Plt Count 185 MPV 7.1 L Neut % (Auto) 45.0 L Lymph % (Auto) 37.2 [place] % (Auto) 11.6 H Eos % (Auto) 5.1 H Baso % (Auto) 1.1 Neut # (Auto) 3.0 Lymph # (Auto) 2.5 [place] # (Auto) 0.8 Eos # (Auto) 0.3 Baso # (Auto) 0.1 PT 10.6 INR 1.0 APTT 30 Sodium 140 Potassium 4.3 Chloride 102 Carbon Dioxide 27 Anion Gap 15 BUN 13 Creatinine 1.4 H Est GFR ( Amer) 44 Est GFR (Non-Af Amer) 37 Random Glucose 126 H Calcium 9.4 Assessment & Plan - Assessment and Plan (Free Text) Assessment: 77F w/L 2nd toe vascular insufficiency & gangrenous changes Plan: Podiatry consulted FU arterial doppler LE Pain control Further recs pending attending evaluation Will DW Dr. Carlos Amezquita, PGY-2 - Date & Time Date: 11/08/17 Time: 01:20
--- NOTE | 2017-11-08 08:26 | RAD ---
Date of service: 11/07/2017 PROCEDURE: Left Foot Radiographs. HISTORY: L 2ND TOE TRAUMA COMPARISON: None. FINDINGS: BONES: There is no acute displaced fracture or bone destruction. Bone alignment is normal. There is mild periarticular bone demineralization. There is an old fracture deformity in the distal 3rd metatarsal. JOINTS: Normal. SOFT TISSUES: Normal. OTHER FINDINGS: None. IMPRESSION: No acute displaced fracture or dislocation.
--- NOTE | 2017-11-08 08:36 | RAD ---
Date of service: 11/07/2017 PROCEDURE: CHEST RADIOGRAPH, 1 VIEW HISTORY: MED CLEAR COMPARISON: None available. FINDINGS: LUNGS: The lungs are well inflated and clear. PLEURA: No pneumothorax or pleural fluid seen. CARDIOVASCULAR: Normal. OSSEOUS STRUCTURES: No significant abnormalities. VISUALIZED UPPER ABDOMEN: Normal. OTHER FINDINGS: None. IMPRESSION: No active pulmonary disease.
[2017-11-08] MEDS ORDERED: VITAMIN D3 PO SCH (10:00)
[2017-11-08] MEDS ORDERED: CALCIUM CARBONATE PO SCH (10:00)
[2017-11-08] MEDS ORDERED: Oxybutynin XL 15 mg Tab PO SCH (10:00)
[2017-11-08] MEDS ORDERED: Enoxaparin 40 mg Syringe SC SCH (10:00)
[2017-11-08] MEDS ORDERED: Heparin25000 units/250ml 1/2NS 25,000 UNITS/250 ML BAG IV PRN ×2 (11:06→12:12)
[2017-11-08 12:08] VITALS: BMI 814.3
--- NOTE | 2017-11-08 12:13 | CP.PCM.PN ---
Subjective - Date & Time of Evaluation Date of Evaluation: 11/08/17 Time of Evaluation: 12:12 - Subjective Subjective: Podiatry Progress Note - Dr. Davis 77 y/o female seen at bedside this afternoon regarding left foot 2nd toe injury/ discoloration. Pt states she still has pain to the left 2nd toe, stating it has been present for over a year but worsened by recent trauma 3 days ago when she bumped the toe into a table. She states the pain is a 3/10 on the VAS scale. Describes it as a continuous sharp pain. She also continues to state the toe feels cool in temperature. Denies any new pedal complaints. Pt is transparent about her history of smoking for over 60 years but states she no longer smokes cigarettes. Denies F/C/N/V/CP/SOB Objective - Vital Signs/Intake and Output Vital Signs (last 24 hours): Temp Pulse Resp BP Pulse Ox 98.4 F 77 20 114/59 L 95 11/08/17 08:43 11/08/17 08:43 11/08/17 08:43 11/08/17 08:43 11/08/17 08:43 Intake and Output: 11/08/17 11/08/17 06:59 18:59 Intake Total 120 Output Total 0 Balance 120 - Medications Medications: Current Medications Aspirin (Aspirin) 325 mg PO DAILY [facility] Last Admin: 11/08/17 11:54 Dose: 325 mg Docusate Sodium (Colace) 100 mg PO [facility] Enalapril Maleate (Vasotec) 1 mg PO BID [facility] Last Admin: 11/08/17 11:56 Dose: Not Given Famotidine (Pepcid) 20 mg PO DAILY [facility] Last Admin: 11/08/17 11:54 Dose: 20 mg Folic Acid (Folic Acid) 1 mg PO DAILY [facility] Last Admin: 11/08/17 11:54 Dose: 1 mg Glimepiride (Amaryl) 4 mg PO DAILY [facility] Last Admin: 11/08/17 11:54 Dose: 4 mg Home Med (Acetaminophen [Tylenol]) 650 mg PO Q4 PRN PRN Reason: Pain, Mild (1-3) Home Med (Calcium Carbonate/Vitamin D3 [Calcium 600 + Vit D Tablet]) 1 each PO BID [facility] Last Admin: 11/08/17 12:00 Dose: Not Given Hydroxychloroquine Sulfate (Plaquenil) 200 mg PO BID [facility] PRN Reason: Protocol Last Admin: 11/08/17 11:54 Dose: 200 mg Heparin Sodium/Sodium Chloride (Heparin 69809 Units/250ml 1/2 Normal Saline) 25 ,000 units in 250 mls @ 0 mls/hr IV .Q0M PRN; Protocol; 18 UNITS/KG/HR PRN Reason: ADJUST RATE PER PROTOCOL Oxybutynin Chloride (Ditropan Xl) 15 mg PO BID [facility] Pneumococcal Polyvalent Vaccine (Pneumovax 23 Vaccine) 0.5 ml IM .ONCE ONE Stop: 11/10/17 10:01 Prednisone (Prednisone Tab) 10 mg PO DAILY [facility] Last Admin: 11/08/17 11:55 Dose: 10 mg - Labs Labs: 11/07/17 19:51 11/07/17 19:51 PT 10.6 SECONDS (9.7-12.2) 11/07/17 22:30 INR 1.0 11/07/17 22:30 APTT 30 SECONDS (21-34) 11/07/17 22:30 - Constitutional Appears: Well, Non-toxic, No Acute Distress - Extremities Exam Additional comments: Lower extremity focused exam: Vasc: DP/PT palpable 1/4 B/L. CFT < 3 sec in all digits except the left 2nd digit (couldn't be assessed due to the color change). No pedal edema noted to bilateral lower extremities. Mild erythema to left 2nd digit. Temp gradient warm to cool from proximal to distal. Left foot 2nd digit is cool to touch. Neuro: Gross sensation intact. Protective sensation diminished. Derm: Mild erythema extending over the left 2nd digit proximally to the 2nd MPJ. Dark purple discoloration noted to left foot 2nd digit. No open lesions. Toenails are thickened, dystrophic and discolored X 10. Ortho: Tenderness to palpation of left foot 2nd toe. Tenderness elicited on active and passive ROM assessment of the left 2nd toe. MMT 5/5 in all groups. - Neurological Exam Neurological Exam: Alert, Awake, Oriented x3 - Psychiatric Exam Psychiatric exam: Normal Affect, Normal Mood Assessment and Plan - Assessment and Plan (Free Text) Assessment: 77 y/o female patient with left foot 2nd digit pain likely secondary to vascular insufficiency, worsened by trauma Plan: Patient seen and evaluated at bedside Plan discussed with attending Dr. Davis Afebrile, no leukocytosis noted Left foot x-ray shows no acute osseous findings, no fracture or dislocation Vascular surgery Dr. Gonzalez on board, appreciate recommendations Arterial duplex studies pending, await results Continue pain management per primary team Will continue to follow patient while in house
[2017-11-08 14:22] LABS: PROTHROMBIN TIME 11.2 SECONDS (9.7-12.2)
--- NOTE | 2017-11-08 15:40 | CP.PCM.HP ---
Past Patient History - Infectious Disease Hx of Infectious Diseases: None - Tetanus Immunizations Tetanus Immunization: Unknown - Past Medical History & Family History Past Medical History?: Yes - Past Social History Smoking Status: Former Smoker - CARDIAC Hx Hypertension: Yes Hx Peripheral Edema: Yes - PULMONARY Hx Respiratory Disorders: Yes (SMOKED CIGARETTES SINCE 16 YRS OLD.CURRENTLY SMOKED 1/2 PPD) - HEENT Hx HEENT Problems: Yes (recently having blurred vision both eyes-CATARACTS) Hx Cataracts: Yes (BILATERAL BLURRY VISION) - ENDOCRINE/METABOLIC Hx Endocrine Disorders: Yes Hx Diabetes Mellitus Type 2: Yes - HEMATOLOGICAL/ONCOLOGICAL Hx Blood Disorders: Yes Other/Comment: SEPSIS 2NDARY TO UTI - INTEGUMENTARY Hx Dermatological Problems: Yes (MASD-IN BETWEEN GLUTEAL FOLDS SECONDARY TO INCONTINENCY) Other/Comment: IASD - MUSCULOSKELETAL/RHEUMATOLOGICAL Hx Arthritis: Yes - GASTROINTESTINAL Hx Gall Bladder Disease: Yes (CHOLEYCSTECTOMY) - GENITOURINARY/GYNECOLOGICAL Hx Genitourinary Disorders: Yes Hx Incontinence: Yes (urine/frequency) Hx Urinary Tract Infection: Yes Other/Comment: PYELONEPHRITIS - PSYCHIATRIC Hx Depression: No Hx Substance Use: No - SURGICAL HISTORY Hx Cholecystectomy: Yes Hx Tonsillectomy: Yes - ANESTHESIA Hx Anesthesia: Yes Hx Anesthesia Reactions: No Hx Malignant Hyperthermia: No Meds Allergies/Adverse Reactions: Allergies Allergy/AdvReac Type Severity Reaction Status Date / Time egg Allergy RASH Verified 11/07/17 19:50 ORANGE Allergy RASH Verified 11/07/17 19:50 Penicillins Allergy Verified 11/07/17 19:50 Physical Exam - Constitutional Appears: Well - Head Exam Head Exam: ATRAUMATIC, NORMAL INSPECTION, NORMOCEPHALIC - Eye Exam Eye Exam: EOMI, Normal appearance, PERRL Pupil Exam: NORMAL ACCOMODATION, PERRL - ENT Exam ENT Exam: Mucous Membranes Moist, Normal Exam - Neck Exam Neck exam: Positive for: Normal Inspection - Respiratory Exam Respiratory Exam: Decreased Breath Sounds - Cardiovascular Exam Cardiovascular Exam: REGULAR RHYTHM, +S1, +S2 - GI/Abdominal Exam GI & Abdominal Exam: Diminished Bowel Sounds, Soft - Rectal Exam Rectal Exam: Deferred Results - Vital Signs Recent Vital Signs: Last Vital Signs Temp 98.4 F 11/08/17 08:43 Pulse 77 11/08/17 08:43 Resp 20 11/08/17 08:43 BP 114/59 L 11/08/17 08:43 Pulse Ox 95 11/08/17 08:43 - Labs Result Diagrams: 11/07/17 19:51 11/07/17 19:51 Labs: Laboratory Results - last 24 hr 11/07/17 11/07/17 11/07/17 19:51 19:51 22:30 WBC 6.7 RBC 3.57 L Hgb 10.2 L Hct 31.3 L MCV 87.5 MCH 28.5 MCHC 32.5 L RDW 14.4 Plt Count 185 MPV 7.1 L Neut % (Auto) 45.0 L Lymph % (Auto) 37.2 [place] % (Auto) 11.6 H Eos % (Auto) 5.1 H Baso % (Auto) 1.1 Neut # (Auto) 3.0 Lymph # (Auto) 2.5 [place] # (Auto) 0.8 Eos # (Auto) 0.3 Baso # (Auto) 0.1 PT 10.6 INR 1.0 APTT 30 Sodium 140 Potassium 4.3 Chloride 102 Carbon Dioxide 27 Anion Gap 15 BUN 13 Creatinine 1.4 H Est GFR ( Amer) 44 Est GFR (Non-Af Amer) 37 POC Glucose (mg/dL) Random Glucose 126 H Calcium 9.4 11/08/17 11/08/17 11/08/17 07:06 11:09 13:59 WBC RBC Hgb Hct MCV MCH MCHC RDW Plt Count MPV Neut % (Auto) Lymph % (Auto) [place] % (Auto) Eos % (Auto) Baso % (Auto) Neut # (Auto) Lymph # (Auto) [place] # (Auto) Eos # (Auto) Baso # (Auto) PT 11.2 INR 1.0 APTT Sodium Potassium Chloride Carbon Dioxide Anion Gap BUN Creatinine Est GFR ( Amer) Est GFR (Non-Af Amer) POC Glucose (mg/dL) 70 123 H Random Glucose Calcium
--- NOTE | 2017-11-08 19:21 | CP.PCM.CON ---
History of Present Illness - History of Present Illness History of Present Illness: 77 Y/O F patient with PMH of DM seen and evaluated in the ED for color changes and pain in her left 2nd toe. Patient is AAO X 3 and NAD. Patient states that 3 days ago she stubbed her left 2nd toe against the table. She states that [facility] nurse [facility] immediately soaked her left foot in Epson salt and warm water. Patient states that she started to have pain 4/10 on VAS scale. She states that the pain is sharp and not relieved by Tylenol. Patient states that today she started to see color changes in her toe. She states that her 2nd toe turned dark purple. Patient states that her toe also started to get cold. patient denies any tingling, numbness or burning sensation in her feet. She denies any other pedal complaint at this time. She denies any recent F/N/V/C or SOB. PMH: DM. PSH: Tonsillectomy. Allergies: Penicillins, Eggs and orange. Social Hx: Ex-smoker (Smoked 1/2 pack of cigarettes for 60 years), Denies ETOH or illicit drug use. Review of Systems - Review of Systems All systems: reviewed and no additional remarkable complaints except - Constitutional Constitutional: As Per HPI - EENT Eyes: absent: As Per HPI, Blind Spots, Blurred Vision, Change in Vision, Decreased Night Vision, Diplopia, Discharge, Dry Eye, Exophthalmos, Floaters, Irritation, Itchy Eyes, Loss of Peripheral Vision, Pain, Photophobia, Requires Corrective Lenses, Sees Flashes, Spots in Vision, Tunnel Vision, Other Visual Disturbances, Loss of Vision, Other Ears: absent: As Per HPI, Decreased Hearing, Ear Discharge, Ear Pain, Tinnitus, Abnormal Hearing, Disequilibrium, Dizziness, Other Nose/Mouth/Throat: absent: As Per HPI, Epistaxis, Nasal Congestion, Nasal Discharge, Nasal Obstruction, Nasal Trauma, Nose Pain, Post Nasal Drip, Sinus Pain, Sinus Pressure, Bleeding Gums, Change in Voice, Dental Pain, Dry Mouth, Dysphagia, Halitosis, Hoarsness, Lip Swelling, Mouth Lesions, Mouth Pain, Odynophagia, Sore Throat, Throat Swelling, Tongue Swelling, Facial Pain, Neck Pain, Neck Mass, Other - Cardiovascular Cardiovascular: absent: As Per HPI, Acrocyanosis, Chest Pain, Chest Pain at Rest , Chest Pain with Activity, Claudication, Diaphoresis, Dyspnea, Dyspnea on Exertion, Edema, Irregular Heart Rhythm, Pain Radiating to Arm/Neck/Jaw, Leg Edema, Leg Ulcers, Lightheadedness, Orthopnea, Palpitations, Paroxysmal Nocturnal Dyspnea, Pedal Edema, Radiating Pain, Rapid Heart Rate, Slow Heart Rate, Syncope, Other - Respiratory Respiratory: absent: As Per HPI, Cough, Dyspnea, Hemoptysis, Dyspnea on Exertion , Wheezing, Snoring, Stridor, Pain on Inspiration, Chest Congestion, Excessive Mucous Production, Change in Mucous Color, Pain with Coughing, Other - Gastrointestinal Gastrointestinal: absent: As Per HPI, Abdominal Pain, Belching, Bloating, Change in Bowel Habits, Change in Stool Character, Coffee Ground Emesis, Constipation, Cramping, Diarrhea, Dyspepsia, Dysphagia, Early Satiety, Excessive Flatus, Fecal Incontinence, Heartburn, Hematemesis, Hematochezia, Loose Stools, Melena, Nausea, Odynophagia, Temesmus, Vomiting, Other - Genitourinary Genitourinary: absent: As Per HPI, Change in Urinary Stream, Difficulty Urinating, Dysuria, Flank Pain, Hematuria, Pyuria, Nocturia, Urinary Incontinence, Urinary Frequency, Urinary Hesitance, Urinary Urgency, Voiding Freq/Small Amts, Freq UTI, Hx Renal/Bladder Calculi, Hx /Renal Surgery, Bladder Distension, Other - Reproductive: Female Reproductive:Female: absent: As Per HPI, Amenorrhea, Amenorrhea/ Control, Currently Menstual, Cycle <21 Days, Cycle >35 Days, Cycle Variable, Menses 1-7 Days, Menses >/= 8 Days, Menses Variable, Cycle > 4 Weeks Between, No Menses for 6 Months, Heavy Menses, Light Menses, Normal Menses, Spotting Between Cycles , S/P Hysterectomy, Menopausal, Post Menopausal, Premenarche, Abnormal Vaginal Bleeding, Dysmenorrhea, Dyspareunia, Genital Lesions, Genital Pruritis, Pelvic Pain, Prolapse Symptoms, Sexual Dysfunction, Vaginal Discharge, Vaginal Dryness , Vaginal Odor, Vaginal Pruritis, Other - Menstruation Menstruation: absent: As Per HPI, Amenorrhea, Amenorrhea/ Control, Currently Menstual, Cycle <21 Days, Cycle >35 Days, Cycle Variable, Menses 1-7 Days, Menses >/= 8 Days, Menses Variable, Cycle > 4 Weeks Between, No Menses for 6 Months, Heavy Menses, Light Menses, Normal Menses, Spotting Between Cycles , S/P Hysterectomy, Menopausal, Post Menopausal, Premenarche, Abnormal Vaginal Bleeding, Dysmenorrhea, Other - Musculoskeletal Musculoskeletal: As Per HPI - Integumentary Integumentary: As Per HPI, Skin Pain, Wounds - Neurological Neurological: absent: As Per HPI, Abnormal Gait, Abnormal Hearing, Abnormal Movements, Abnormal Speech, Behavioral Changes, Burning Sensations, Confusion, Convulsions, Disequilibrium, Dizziness, Numbness, Focal Weakness, Frequent Falls , Headaches, Lack of Coordination, Loss of Vision, Memory Loss, Paresthesias, Radicular Pain, Restless Legs, Sensory Deficit, Syncope, Tingling, Tremor, Vertigo, Weakness, Other Visual Disturbances, Other - Psychiatric Psychiatric: absent: As Per HPI, Abnormal Sleep Pattern, Anhedonia, Anxiety, Auditory Hallucinations, Behavioral Changes, Change in Appetite, Change in Libido, Confusion, Depression, Difficulty Concentrating, Hallucinations, Homicidal Ideation, Hopelessness, Irritability, Memory Loss, Mood Swings, Panic Attacks, Paranoia, Suicidal Ideation, Visual Hallucinations, Tactile Hallucinations, Other - Endocrine Endocrine: absent: As Per HPI, Change in Body Appearance, Change in Libido, Cold Intolorance, Deepening of Voice, Excessive Sweating, Fatigue, Flushing, Heat Intolorance, Increase in Ring/Shoe/Hat Size, Palpitations, Polydipsia, Polyphagia, Polyuria, Other - Hematologic/Lymphatic Hematologic: absent: As Per HPI, Easy Bleeding, Easy Bruising, Lymphadenopathy, Other Past Patient History - Infectious Disease Hx of Infectious Diseases: None - Tetanus Immunizations Tetanus Immunization: Unknown - Past Medical History & Family History Past Medical History?: Yes - Past Social History Smoking Status: Former Smoker - CARDIAC Hx Hypertension: Yes Hx Peripheral Edema: Yes - PULMONARY Hx Respiratory Disorders: Yes (SMOKED CIGARETTES SINCE 16 YRS OLD.CURRENTLY SMOKED 1/2 PPD) - HEENT Hx HEENT Problems: Yes (recently having blurred vision both eyes-CATARACTS) Hx Cataracts: Yes (BILATERAL BLURRY VISION) - ENDOCRINE/METABOLIC Hx Endocrine Disorders: Yes Hx Diabetes Mellitus Type 2: Yes - HEMATOLOGICAL/ONCOLOGICAL Hx Blood Disorders: Yes Other/Comment: SEPSIS 2NDARY TO UTI - INTEGUMENTARY Hx Dermatological Problems: Yes (MASD-IN BETWEEN GLUTEAL FOLDS SECONDARY TO INCONTINENCY) Other/Comment: IASD - MUSCULOSKELETAL/RHEUMATOLOGICAL Hx Arthritis: Yes - GASTROINTESTINAL Hx Gall Bladder Disease: Yes (CHOLEYCSTECTOMY) - GENITOURINARY/GYNECOLOGICAL Hx Genitourinary Disorders: Yes Hx Incontinence: Yes (urine/frequency) Hx Urinary Tract Infection: Yes Other/Comment: PYELONEPHRITIS - PSYCHIATRIC Hx Depression: No Hx Substance Use: No - SURGICAL HISTORY Hx Cholecystectomy: Yes Hx Tonsillectomy: Yes - ANESTHESIA Hx Anesthesia: Yes Hx Anesthesia Reactions: No Hx Malignant Hyperthermia: No Meds Allergies/Adverse Reactions: Allergies Allergy/AdvReac Type Severity Reaction Status Date / Time egg Allergy RASH Verified 11/07/17 19:50 ORANGE Allergy RASH Verified 11/07/17 19:50 Penicillins Allergy Verified 11/07/17 19:50 - Medications Medications: Current Medications Acetaminophen (Tylenol 325mg Tab) 650 mg PO Q4 PRN PRN Reason: Pain, Mild (1-3) Aspirin (Aspirin) 325 mg PO DAILY [facility] Last Admin: 11/08/17 11:54 Dose: 325 mg Calcium/Vitamin D (Oyster Shell Calcium/Vitamin D 500 Mg-200 Iu) 1 tab PO BID [facility] Docusate Sodium (Colace) 100 mg PO HS [facility] Enalapril Maleate (Vasotec) 1 mg PO BID [facility] Last Admin: 11/08/17 11:56 Dose: Not Given Famotidine (Pepcid) 20 mg PO DAILY [facility] Last Admin: 11/08/17 11:54 Dose: 20 mg Folic Acid (Folic Acid) 1 mg PO DAILY [facility] Last Admin: 11/08/17 11:54 Dose: 1 mg Glimepiride (Amaryl) 4 mg PO DAILY [facility] Last Admin: 11/08/17 11:54 Dose: 4 mg Hydroxychloroquine Sulfate (Plaquenil) 200 mg PO BID [facility] PRN Reason: Protocol Last Admin: 11/08/17 17:33 Dose: 200 mg Heparin Sodium/Sodium Chloride (Heparin 23494 Units/250ml 1/2 Normal Saline) 25 ,000 units in 250 mls @ 13.619 mls/hr IV .[id number] PRN; Protocol; 18 UNITS/KG/HR PRN Reason: ADJUST RATE PER PROTOCOL Last Admin: 11/08/17 12:56 Dose: 18 units/kg/hr, 13.619 mls/hr Oxybutynin Chloride (Ditropan Xl) 15 mg PO BID [facility] Last Admin: 11/08/17 12:25 Dose: Not Given Pneumococcal Polyvalent Vaccine (Pneumovax 23 Vaccine) 0.5 ml IM .ONCE ONE Stop: 11/10/17 10:01 Prednisone (Prednisone Tab) 10 mg PO DAILY [facility] Last Admin: 11/08/17 11:55 Dose: 10 mg Physical Exam - Constitutional Appears: Non-toxic, Chronically Ill - Head Exam Head Exam: NORMOCEPHALIC - Eye Exam Eye Exam: PERRL - ENT Exam ENT Exam: Mucous Membranes Dry - Neck Exam Neck exam: Negative for: Lymphadenopathy - Respiratory Exam Respiratory Exam: Decreased Breath Sounds - Cardiovascular Exam Cardiovascular Exam: REGULAR RHYTHM - GI/Abdominal Exam GI & Abdominal Exam: Diminished Bowel Sounds, Soft - Rectal Exam Rectal Exam: Deferred - Exam Exam: NORMAL INSPECTION - Extremities Exam Extremities exam: Negative for: pedal edema - Back Exam Back exam: absent: CVA tenderness (L), CVA tenderness (R) - Neurological Exam Neurological exam: Alert, CN II-XII Intact, Oriented x3, Reflexes Normal - Psychiatric Exam Psychiatric exam: Normal Mood - Skin Skin Exam: Dry Additional comments: discolered digit left second toe weak pulses cont iv antibiotics and woiund care podiatry and vascular eval Results - Vital Signs Recent Vital Signs: Last Vital Signs Temp 98.9 F 11/08/17 15:00 Pulse 84 11/08/17 15:00 Resp 20 11/08/17 15:00 BP 109/71 11/08/17 15:00 Pulse Ox 95 11/08/17 15:00 - Labs Result Diagrams: 11/07/17 19:51 11/07/17 19:51 Labs: Laboratory Results - last 24 hr 11/07/17 11/07/17 11/07/17 19:51 19:51 22:30 WBC 6.7 RBC 3.57 L Hgb 10.2 L Hct 31.3 L MCV 87.5 MCH 28.5 MCHC 32.5 L RDW 14.4 Plt Count 185 MPV 7.1 L Neut % (Auto) 45.0 L Lymph % (Auto) 37.2 [place] % (Auto) 11.6 H Eos % (Auto) 5.1 H Baso % (Auto) 1.1 Neut # (Auto) 3.0 Lymph # (Auto) 2.5 [place] # (Auto) 0.8 Eos # (Auto) 0.3 Baso # (Auto) 0.1 PT 10.6 INR 1.0 APTT 30 Sodium 140 Potassium 4.3 Chloride 102 Carbon Dioxide 27 Anion Gap 15 BUN 13 Creatinine 1.4 H Est GFR ( Amer) 44 Est GFR (Non-Af Amer) 37 POC Glucose (mg/dL) Random Glucose 126 H Calcium 9.4 11/08/17 11/08/17 11/08/17 07:06 11:09 13:59 WBC RBC Hgb Hct MCV MCH MCHC RDW Plt Count MPV Neut % (Auto) Lymph % (Auto) [place] % (Auto) Eos % (Auto) Baso % (Auto) Neut # (Auto) Lymph # (Auto) [place] # (Auto) Eos # (Auto) Baso # (Auto) PT 11.2 INR 1.0 APTT Sodium Potassium Chloride Carbon Dioxide Anion Gap BUN Creatinine Est GFR ( Amer) Est GFR (Non-Af Amer) POC Glucose (mg/dL) 70 123 H Random Glucose Calcium 11/08/17 16:05 WBC RBC Hgb Hct MCV MCH MCHC RDW Plt Count MPV Neut % (Auto) Lymph % (Auto) [place] % (Auto) Eos % (Auto) Baso % (Auto) Neut # (Auto) Lymph # (Auto) [place] # (Auto) Eos # (Auto) Baso # (Auto) PT INR APTT Sodium Potassium Chloride Carbon Dioxide Anion Gap BUN Creatinine Est GFR ( Amer) Est GFR (Non-Af Amer) POC Glucose (mg/dL) 182 H Random Glucose Calcium
[2017-11-08] MEDS: Oxybutynin XL 10 mg Tab PO SCH (21:37)
[2017-11-09 07:37] LABS: HEMOGLOBIN 9.7 g/dL (11.0-16.0); MEAN CORPUSCULAR HEMOGLOBIN 28.3 pg (27.0-31.0); MEAN CORPUSCULAR HGB CONC 33.1 g/dL (33.0-37.0); MEAN PLATELET VOLUME 7.4 fL (7.2-11.7); RBC 3.41 Mil/uL (3.80-5.20); RED CELL DISTRIBUTION WIDTH 14.3 % (11.5-14.5); WHITE BLOOD COUNT 6.9 K/uL (4.8-10.8)
[2017-11-09 07:41] LABS: MEAN CELL VOLUME 85.5 fL (81.0-99.0)
--- NOTE | 2017-11-09 08:42 | CP.PCM.PN ---
Subjective - Date & Time of Evaluation Date of Evaluation: 11/09/17 Time of Evaluation: 06:30 - Subjective Subjective: Patient seen and examined. No acute events over night. No complaints. Objective - Vital Signs/Intake and Output Vital Signs (last 24 hours): Temp Pulse Resp BP Pulse Ox 98.3 F 95 H 20 148/77 96 11/09/17 07:37 11/09/17 07:37 11/09/17 07:37 11/09/17 07:37 11/09/17 07:37 Intake and Output: 11/09/17 11/09/17 06:59 18:59 Intake Total 458.8 508.88 Balance 458.8 508.88 - Medications Medications: Current Medications Acetaminophen (Tylenol 325mg Tab) 650 mg PO Q4 PRN PRN Reason: Pain, Mild (1-3) Aspirin (Aspirin) 325 mg PO DAILY [facility] Last Admin: 11/08/17 11:54 Dose: 325 mg Calcium/Vitamin D (Oyster Shell Calcium/Vitamin D 500 Mg-200 Iu) 1 tab PO BID [facility] Docusate Sodium (Colace) 100 mg PO HS [facility] Last Admin: 11/08/17 21:38 Dose: 100 mg Enalapril Maleate (Vasotec) 1 mg PO BID [facility] Last Admin: 11/08/17 18:40 Dose: Not Given Famotidine (Pepcid) 20 mg PO DAILY [facility] Last Admin: 11/08/17 11:54 Dose: 20 mg Folic Acid (Folic Acid) 1 mg PO DAILY [facility] Last Admin: 11/08/17 11:54 Dose: 1 mg Glimepiride (Amaryl) 4 mg PO ACB [facility] Last Admin: 11/09/17 07:50 Dose: Not Given Hydroxychloroquine Sulfate (Plaquenil) 200 mg PO BID [facility] PRN Reason: Protocol Last Admin: 11/08/17 17:33 Dose: 200 mg Heparin Sodium/Sodium Chloride (Heparin 19324 Units/250ml 1/2 Normal Saline) 25 ,000 units in 250 mls @ 13.619 mls/hr IV .[id number] PRN; Protocol; 18 UNITS/KG/HR PRN Reason: ADJUST RATE PER PROTOCOL Last Admin: 11/08/17 12:56 Dose: 18 units/kg/hr, 13.619 mls/hr Clindamycin Phosphate 600 mg/ (Sodium Chloride) 54 mls @ 100 mls/hr IVPB Q8H [facility] PRN Reason: Protocol Last Admin: 11/09/17 03:06 Dose: 100 mls/hr Oxybutynin Chloride (Ditropan Xl) 10 mg PO BID [facility] Last Admin: 11/08/17 21:37 Dose: 10 mg Oxybutynin Chloride (Ditropan Xl) 5 mg PO BID [facility] Last Admin: 11/08/17 23:31 Dose: Not Given Pneumococcal Polyvalent Vaccine (Pneumovax 23 Vaccine) 0.5 ml IM .ONCE ONE Stop: 11/10/17 10:01 Prednisone (Prednisone Tab) 10 mg PO DAILY [facility] Last Admin: 11/08/17 11:55 Dose: 10 mg - Labs Labs: 11/09/17 07:16 11/07/17 19:51 PT 11.2 SECONDS (9.7-12.2) 11/08/17 13:59 INR 1.0 11/08/17 13:59 APTT 125 SECONDS (21-34) H* D 11/09/17 07:16 - Constitutional Appears: No Acute Distress - Head Exam Head Exam: NORMOCEPHALIC - Eye Exam Eye Exam: Normal appearance - ENT Exam ENT Exam: Mucous Membranes Moist - Respiratory Exam Respiratory Exam: NORMAL BREATHING PATTERN - Cardiovascular Exam Cardiovascular Exam: +S1, +S2 - GI/Abdominal Exam GI & Abdominal Exam: Soft - Extremities Exam Additional comments: trauma to 2nd toe - Neurological Exam Neurological Exam: Alert, Awake, Oriented x3 - Psychiatric Exam Psychiatric exam: Normal Mood - Skin Skin Exam: Dry, Intact, Warm Assessment and Plan - Assessment and Plan (Free Text) Assessment: 77F w/ trauma to L 2nd toe with +DVT Plan: -F/u podiatry recs -f/u PVR -C/w hep drip -Medical management per primary team -Further recs per Dr. Carlos Ham PGY3
[2017-11-09] MEDS: Calcium-Vit D 500 mg-200 Units Tab UD PO SCH ×2 (09:44→17:30)
[2017-11-09] MEDS: Oxybutynin XL 10 mg Tab PO SCH (09:45)
[2017-11-09] MEDS: Heparin25000 units/250ml 1/2NS 25,000 UNITS/250 ML BAG IV PRN (12:28)
--- NOTE | 2017-11-09 13:13 | CP.PCM.CON ---
Past Patient History - Infectious Disease Hx of Infectious Diseases: None - Tetanus Immunizations Tetanus Immunization: Unknown - Past Medical History & Family History Past Medical History?: Yes - Past Social History Smoking Status: Former Smoker - CARDIAC Hx Hypertension: Yes - PULMONARY Hx Respiratory Disorders: Yes (SMOKED CIGARETTES SINCE 16 YRS OLD.CURRENTLY SMOKED 1/2 PPD) - HEENT Hx HEENT Problems: Yes (recently having blurred vision both eyes-CATARACTS) Hx Cataracts: Yes (BILATERAL BLURRY VISION) - ENDOCRINE/METABOLIC Hx Endocrine Disorders: Yes Hx Diabetes Mellitus Type 2: Yes - HEMATOLOGICAL/ONCOLOGICAL Hx Blood Disorders: Yes Other/Comment: SEPSIS 2NDARY TO UTI - INTEGUMENTARY Hx Dermatological Problems: Yes (MASD-IN BETWEEN GLUTEAL FOLDS SECONDARY TO INCONTINENCY) Other/Comment: IASD - MUSCULOSKELETAL/RHEUMATOLOGICAL Hx Arthritis: Yes - GASTROINTESTINAL Hx Gall Bladder Disease: Yes (CHOLEYCSTECTOMY) - GENITOURINARY/GYNECOLOGICAL Hx Genitourinary Disorders: Yes Hx Incontinence: Yes (urine/frequency) Hx Urinary Tract Infection: Yes Other/Comment: PYELONEPHRITIS - PSYCHIATRIC Hx Depression: No Hx Substance Use: No - SURGICAL HISTORY Hx Cholecystectomy: Yes Hx Tonsillectomy: Yes - ANESTHESIA Hx Anesthesia: Yes Hx Anesthesia Reactions: No Hx Malignant Hyperthermia: No Meds Allergies/Adverse Reactions: Allergies Allergy/AdvReac Type Severity Reaction Status Date / Time egg Allergy RASH Verified 11/07/17 19:50 ORANGE Allergy RASH Verified 11/07/17 19:50 Penicillins Allergy Verified 11/07/17 19:50 - Medications Medications: Current Medications Acetaminophen (Tylenol 325mg Tab) 650 mg PO Q4 PRN PRN Reason: Pain, Mild (1-3) Aspirin (Aspirin) 325 mg PO DAILY [facility] Last Admin: 11/09/17 09:44 Dose: 325 mg Calcium/Vitamin D (Oyster Shell Calcium/Vitamin D 500 Mg-200 Iu) 1 tab PO BID [facility] Last Admin: 11/09/17 09:44 Dose: 1 tab Docusate Sodium (Colace) 100 mg PO HS [facility] Last Admin: 11/08/17 21:38 Dose: 100 mg Enalapril Maleate (Vasotec) 1 mg PO BID [facility] Last Admin: 11/08/17 18:40 Dose: Not Given Famotidine (Pepcid) 20 mg PO DAILY [facility] Last Admin: 09/15/18 09:43 Dose: 20 mg Folic Acid (Folic Acid) 1 mg PO DAILY [facility] Last Admin: 11/09/17 09:44 Dose: 1 mg Glimepiride (Amaryl) 4 mg PO ACB [facility] Last Admin: 11/09/17 07:50 Dose: Not Given Hydroxychloroquine Sulfate (Plaquenil) 200 mg PO BID [facility] PRN Reason: Protocol Last Admin: 11/09/17 09:43 Dose: 200 mg Clindamycin Phosphate 600 mg/ (Sodium Chloride) 54 mls @ 100 mls/hr IVPB Q8H [facility] PRN Reason: Protocol Last Admin: 11/09/17 12:19 Dose: 100 mls/hr Heparin Sodium/Sodium Chloride (Heparin 60624 Units/250ml 1/2 Normal Saline) 25 ,000 units in 250 mls @ 11.349 mls/hr IV .Q22H2M PRN; Protocol; 15 UNITS/KG/HR PRN Reason: ADJUST RATE PER PROTOCOL Last Admin: 11/09/17 12:28 Dose: 15 units/kg/hr, 11.349 mls/hr Oxybutynin Chloride (Ditropan Xl) 10 mg PO BID [facility] Last Admin: 11/09/17 09:45 Dose: Not Given Oxybutynin Chloride (Ditropan Xl) 5 mg PO BID [facility] Last Admin: 11/09/17 09:44 Dose: 5 mg Pneumococcal Polyvalent Vaccine (Pneumovax 23 Vaccine) 0.5 ml IM .ONCE ONE Stop: 11/10/17 10:01 Prednisone (Prednisone Tab) 10 mg PO DAILY [facility] Last Admin: 11/09/17 09:43 Dose: 10 mg Results - Vital Signs Recent Vital Signs: Last Vital Signs Temp 98.3 F 11/09/17 07:37 Pulse 95 H 11/09/17 07:37 Resp 20 11/09/17 07:37 BP 148/77 11/09/17 07:37 Pulse Ox 96 11/09/17 07:37 - Labs Result Diagrams: 11/09/17 07:16 11/07/17 19:51 Labs: Laboratory Results - last 24 hr 11/08/17 11/08/17 11/08/17 13:59 16:05 19:57 WBC RBC Hgb Hct MCV MCH MCHC RDW Plt Count MPV PT 11.2 INR 1.0 APTT 79 H D POC Glucose (mg/dL) 182 H 11/08/17 11/09/17 11/09/17 21:23 07:01 07:02 WBC RBC Hgb Hct MCV MCH MCHC RDW Plt Count MPV PT INR APTT POC Glucose (mg/dL) 271 H 58 L 59 L 11/09/17 11/09/17 11/09/17 07:16 07:16 07:48 WBC 6.9 RBC 3.41 L Hgb 9.7 L Hct 29.1 L MCV 85.5 D MCH 28.3 MCHC 33.1 RDW 14.3 Plt Count 172 MPV 7.4 PT INR APTT 125 H* D POC Glucose (mg/dL) 88 11/09/17 10:57 WBC RBC Hgb Hct MCV MCH MCHC RDW Plt Count MPV PT INR APTT POC Glucose (mg/dL) 141 H
--- NOTE | 2017-11-09 13:18 | CP.PCM.PN ---
Subjective - Date & Time of Evaluation Date of Evaluation: 11/09/17 Time of Evaluation: 13:16 - Subjective Subjective: Podiatry Progress Note - Dr. Davis 77 y/o female seen at bedside this morning for her left foot 2nd toe injury and discoloration. Pt states she still has pain to the left 2nd toe, She states that the pain decreased to 3/10 on the VAS scale. Patient Describes it as a continuous sharp pain. She also continues to state the toe feels cool in temperature to her toe. Patient denies any new pedal complaints. Patient Denies any overnight F/C/N/V/CP/SOB Objective - Vital Signs/Intake and Output Vital Signs (last 24 hours): Temp Pulse Resp BP Pulse Ox 98.3 F 95 H 20 148/77 96 11/09/17 07:37 11/09/17 07:37 11/09/17 07:37 11/09/17 07:37 11/09/17 07:37 Intake and Output: 11/09/17 11/09/17 06:59 18:59 Intake Total 458.8 508.88 Balance 458.8 508.88 - Medications Medications: Current Medications Acetaminophen (Tylenol 325mg Tab) 650 mg PO Q4 PRN PRN Reason: Pain, Mild (1-3) Aspirin (Aspirin) 325 mg PO DAILY [facility] Last Admin: 11/09/17 09:44 Dose: 325 mg Calcium/Vitamin D (Oyster Shell Calcium/Vitamin D 500 Mg-200 Iu) 1 tab PO BID [facility] Last Admin: 11/09/17 09:44 Dose: 1 tab Docusate Sodium (Colace) 100 mg PO HS [facility] Last Admin: 11/08/17 21:38 Dose: 100 mg Enalapril Maleate (Vasotec) 1 mg PO BID [facility] Last Admin: 11/08/17 18:40 Dose: Not Given Famotidine (Pepcid) 20 mg PO DAILY [facility] Last Admin: 11/09/17 09:43 Dose: 20 mg Folic Acid (Folic Acid) 1 mg PO DAILY [facility] Last Admin: 11/09/17 09:44 Dose: 1 mg Glimepiride (Amaryl) 4 mg PO ACB [facility] Last Admin: 11/09/17 07:50 Dose: Not Given Hydroxychloroquine Sulfate (Plaquenil) 200 mg PO BID [facility] PRN Reason: Protocol Last Admin: 11/09/17 09:43 Dose: 200 mg Clindamycin Phosphate 600 mg/ (Sodium Chloride) 54 mls @ 100 mls/hr IVPB Q8H [facility] PRN Reason: Protocol Last Admin: 11/09/17 12:19 Dose: 100 mls/hr Heparin Sodium/Sodium Chloride (Heparin 95471 Units/250ml 1/2 Normal Saline) 25 ,000 units in 250 mls @ 11.349 mls/hr IV .Q22H2M PRN; Protocol; 15 UNITS/KG/HR PRN Reason: ADJUST RATE PER PROTOCOL Last Admin: 11/09/17 12:28 Dose: 15 units/kg/hr, 11.349 mls/hr Oxybutynin Chloride (Ditropan Xl) 10 mg PO BID [facility] Last Admin: 11/09/17 09:45 Dose: Not Given Oxybutynin Chloride (Ditropan Xl) 5 mg PO BID [facility] Last Admin: 11/09/17 09:44 Dose: 5 mg Pneumococcal Polyvalent Vaccine (Pneumovax 23 Vaccine) 0.5 ml IM .ONCE ONE Stop: 11/10/17 10:01 Prednisone (Prednisone Tab) 10 mg PO DAILY [facility] Last Admin: 11/09/17 09:43 Dose: 10 mg - Labs Labs: 11/09/17 07:16 11/07/17 19:51 PT 11.2 SECONDS (9.7-12.2) 11/08/17 13:59 INR 1.0 11/08/17 13:59 APTT 125 SECONDS (21-34) H* D 11/09/17 07:16 - Constitutional Appears: Well, Non-toxic, No Acute Distress - Head Exam Head Exam: ATRAUMATIC, NORMOCEPHALIC - Extremities Exam Additional comments: Lower extremity focused exam: Vasc: DP/PT palpable 1/4 B/L. CFT < 3 sec in all digits except the left 2nd digit (couldn't be assessed due to the color change). No pedal edema noted to bilateral lower extremities. Erythema to left 2nd digit subsided. Temp gradient warm to cool from proximal to distal. Left foot 2nd digit is cool to touch. Neuro: Gross sensation intact. Protective sensation diminished. Derm: Dark purple discoloration noted to left foot 2nd digit. No open lesions. Toenails are thickened, dystrophic and discolored X 10. Ortho: Tenderness to palpation of left foot 2nd toe. Tenderness elicited on active and passive ROM assessment of the left 2nd toe. Muscle power intact 5/5 in all groups. - Neurological Exam Neurological Exam: Alert, Awake, Oriented x3 - Psychiatric Exam Psychiatric exam: Normal Affect, Normal Mood Assessment and Plan - Assessment and Plan (Free Text) Assessment: 77 y/o female patient with left foot 2nd digit pain likely secondary to vascular insufficiency, worsened by trauma Plan: Patient seen and evaluated at bedside Plan discussed with attending Dr. Davis Afebrile, no leukocytosis noted Left foot x-ray shows no acute osseous findings, no fracture or dislocation Vascular surgery Dr. Gonzalez on board, appreciate recommendations Arterial duplex studies still pending, await results Continue pain management as per primary team Will continue to follow up patient while in house
--- NOTE | 2017-11-09 15:30 | CP.PCM.PN ---
Subjective - Date & Time of Evaluation Date of Evaluation: 11/09/17 Time of Evaluation: 08:30 - Subjective Subjective: clinically same Objective - Vital Signs/Intake and Output Vital Signs (last 24 hours): Temp Pulse Resp BP Pulse Ox 98.3 F 95 H 20 148/77 96 11/09/17 07:37 11/09/17 07:37 11/09/17 07:37 11/09/17 07:37 11/09/17 07:37 Intake and Output: 11/09/17 11/09/17 06:59 18:59 Intake Total 458.8 508.88 Balance 458.8 508.88 - Medications Medications: Current Medications Acetaminophen (Tylenol 325mg Tab) 650 mg PO Q4 PRN PRN Reason: Pain, Mild (1-3) Aspirin (Aspirin) 325 mg PO DAILY [facility] Last Admin: 11/09/17 09:44 Dose: 325 mg Calcium/Vitamin D (Oyster Shell Calcium/Vitamin D 500 Mg-200 Iu) 1 tab PO BID [facility] Last Admin: 11/09/17 09:44 Dose: 1 tab Docusate Sodium (Colace) 100 mg PO HS [facility] Last Admin: 11/08/17 21:38 Dose: 100 mg Enalapril Maleate (Vasotec) 1 mg PO BID [facility] Last Admin: 11/08/17 18:40 Dose: Not Given Famotidine (Pepcid) 20 mg PO DAILY [facility] Last Admin: 11/09/17 09:43 Dose: 20 mg Folic Acid (Folic Acid) 1 mg PO DAILY [facility] Last Admin: 11/09/17 09:44 Dose: 1 mg Glimepiride (Amaryl) 4 mg PO ACB [facility] Last Admin: 11/09/17 07:50 Dose: Not Given Hydroxychloroquine Sulfate (Plaquenil) 200 mg PO BID [facility] PRN Reason: Protocol Last Admin: 11/09/17 09:43 Dose: 200 mg Clindamycin Phosphate 600 mg/ (Sodium Chloride) 54 mls @ 100 mls/hr IVPB Q8H [facility] PRN Reason: Protocol Last Admin: 11/09/17 12:19 Dose: 100 mls/hr Heparin Sodium/Sodium Chloride (Heparin 25005 Units/250ml 1/2 Normal Saline) 25 ,000 units in 250 mls @ 11.349 mls/hr IV .Q22H2M PRN; Protocol; 15 UNITS/KG/HR PRN Reason: ADJUST RATE PER PROTOCOL Last Admin: 11/09/17 12:28 Dose: 15 units/kg/hr, 11.349 mls/hr Oxybutynin Chloride (Ditropan Xl) 10 mg PO BID [facility] Last Admin: 11/09/17 09:45 Dose: Not Given Oxybutynin Chloride (Ditropan Xl) 5 mg PO BID [facility] Last Admin: 11/09/17 09:44 Dose: 5 mg Pneumococcal Polyvalent Vaccine (Pneumovax 23 Vaccine) 0.5 ml IM .ONCE ONE Stop: 11/10/17 10:01 Prednisone (Prednisone Tab) 10 mg PO DAILY [facility] Last Admin: 11/09/17 09:43 Dose: 10 mg - Labs Labs: 11/09/17 07:16 11/07/17 19:51 PT 11.2 SECONDS (9.7-12.2) 11/08/17 13:59 INR 1.0 11/08/17 13:59 APTT 125 SECONDS (21-34) H* D 11/09/17 07:16 - Constitutional Appears: Well - Head Exam Head Exam: ATRAUMATIC, NORMAL INSPECTION, NORMOCEPHALIC - Eye Exam Eye Exam: EOMI, Normal appearance, PERRL Pupil Exam: NORMAL ACCOMODATION, PERRL - ENT Exam ENT Exam: Mucous Membranes Moist, Normal Exam - Neck Exam Neck Exam: Full ROM, Normal Inspection. absent: Lymphadenopathy - Respiratory Exam Respiratory Exam: Decreased Breath Sounds - Cardiovascular Exam Cardiovascular Exam: REGULAR RHYTHM, +S1, +S2 - GI/Abdominal Exam GI & Abdominal Exam: Soft, Diminished Bowel Sounds - Rectal Exam Rectal Exam: Deferred
--- NOTE | 2017-11-09 22:44 | CARD ---
APPROVED REPORT Date of service: 11/07/2017 EKG Measurement Heart [id number] <Conclusion> Sinus rhythm with occasional premature ventricular complexes Right bundle branch block Abnormal ECG
--- NOTE | 2017-11-10 08:28 | CP.PCM.PN ---
Subjective - Date & Time of Evaluation Date of Evaluation: 11/10/17 Time of Evaluation: 08:25 - Subjective Subjective: Surgery Pt seen and examined. No acute events. Awaiting PVR/RADHA. Objective - Vital Signs/Intake and Output Vital Signs (last 24 hours): Temp Pulse Resp BP Pulse Ox 98.2 F 75 20 124/73 95 11/10/17 00:00 11/10/17 00:00 11/10/17 00:00 11/10/17 00:00 11/10/17 00:00 Intake and Output: 11/10/17 11/10/17 06:59 18:59 Intake Total 676.4 Balance 676.4 - Medications Medications: Current Medications Acetaminophen (Tylenol 325mg Tab) 650 mg PO Q4 PRN PRN Reason: Pain, Mild (1-3) Aspirin (Aspirin) 325 mg PO DAILY [facility] Last Admin: 11/09/17 09:44 Dose: 325 mg Calcium/Vitamin D (Oyster Shell Calcium/Vitamin D 500 Mg-200 Iu) 1 tab PO BID [facility] Last Admin: 11/09/17 17:30 Dose: 1 tab Docusate Sodium (Colace) 100 mg PO HS [facility] Last Admin: 11/09/17 21:59 Dose: 100 mg Enalapril Maleate (Vasotec) 10 mg PO BID [facility] Famotidine (Pepcid) 20 mg PO DAILY [facility] Last Admin: 11/09/17 09:43 Dose: 20 mg Folic Acid (Folic Acid) 1 mg PO DAILY [facility] Last Admin: 11/09/17 09:44 Dose: 1 mg Glimepiride (Amaryl) 4 mg PO ACB [facility] Last Admin: 11/10/17 07:55 Dose: Not Given Hydroxychloroquine Sulfate (Plaquenil) 200 mg PO BID [facility] PRN Reason: Protocol Last Admin: 11/09/17 17:31 Dose: 200 mg Clindamycin Phosphate 600 mg/ (Sodium Chloride) 54 mls @ 100 mls/hr IVPB Q8H [facility] PRN Reason: Protocol Last Admin: 11/10/17 03:20 Dose: 100 mls/hr Heparin Sodium/Sodium Chloride (Heparin 22725 Units/250ml 1/2 Normal Saline) 25 ,000 units in 250 mls @ 11.349 mls/hr IV .Q22H2M PRN; Protocol; 15 UNITS/KG/HR PRN Reason: ADJUST RATE PER PROTOCOL Last Admin: 11/09/17 12:28 Dose: 15 units/kg/hr, 11.349 mls/hr Oxybutynin Chloride (Ditropan Xl) 15 mg PO BID [facility] Last Admin: 11/09/17 23:56 Dose: 15 mg Pneumococcal Polyvalent Vaccine (Pneumovax 23 Vaccine) 0.5 ml IM .ONCE ONE Stop: 11/10/17 10:01 Prednisone (Prednisone Tab) 10 mg PO DAILY [facility] Last Admin: 11/09/17 09:43 Dose: 10 mg - Labs Labs: 11/09/17 07:16 11/07/17 19:51 PT 11.2 SECONDS (9.7-12.2) 11/08/17 13:59 INR 1.0 11/08/17 13:59 APTT 40 SECONDS (21-34) H D 11/09/17 20:51 - Constitutional Appears: No Acute Distress - Head Exam Head Exam: ATRAUMATIC, NORMAL INSPECTION, NORMOCEPHALIC - Eye Exam Eye Exam: EOMI, Normal appearance, PERRL Pupil Exam: NORMAL ACCOMODATION, PERRL - ENT Exam ENT Exam: Mucous Membranes Moist, Normal Exam - Neck Exam Neck Exam: Full ROM, Normal Inspection. absent: Lymphadenopathy - Respiratory Exam Respiratory Exam: NORMAL BREATHING PATTERN - Cardiovascular Exam Cardiovascular Exam: REGULAR RHYTHM - GI/Abdominal Exam GI & Abdominal Exam: Soft. absent: Tenderness - Exam Exam: NORMAL INSPECTION - Extremities Exam Extremities Exam: absent: Normal Inspection Additional comments: L LE 2nd toe red, TTP. erythematous. - Back Exam Back Exam: NORMAL INSPECTION - Neurological Exam Neurological Exam: Alert, Awake, CN II-XII Intact, Oriented x3 - Psychiatric Exam Psychiatric exam: Normal Affect, Normal Mood - Skin Skin Exam: Dry, Erythema, Intact, Warm Assessment and Plan - Assessment and Plan (Free Text) Assessment: LLE toe vascular insuficiency LE DVT -On heparin drip -awaiting PVR/RADHA AMIE Gonzalez
[2017-11-10] MEDS ORDERED: Pneumococcal 23-Valent Vaccine IM ONE (10:00)
[2017-11-10] MEDS: Calcium-Vit D 500 mg-200 Units Tab UD PO SCH ×2 (10:31→17:28)
--- NOTE | 2017-11-10 12:28 | VASCLAB ---
Date of service: 11/08/2017 PROCEDURE: Lower Extremity Venous Duplex Exam. HISTORY: Venous insufficiency PRIORS: None. TECHNIQUE: Bilateral common femoral, femoral, popliteal and posterior tibial, peroneal and great saphenous veins were evaluated. Flow was assessed with color Doppler, compressibility, assessment of phasic flow and augmentation response. Report prepared by Parag Toledo, JIMBO, RVT FINDINGS: RIGHT: 1. Common Femoral Vein: 1.1. Compressibility - Fully compressible: Thrombus - None : Flow - Phasic: Augmentation -Normal: Reflux - None. 2. Femoral Vein: 2.1. Compressibility - Fully compressible: Thrombus - None : Flow - Phasic: Augmentation -Normal: Reflux - None. 3. Popliteal Vein: 3.1. Compressibility - Fully compressible: Thrombus - None : Flow - Phasic: Augmentation -Normal: Reflux - None. 4. Posterior Tibial Vein: 4.1. Compressibility - Fully compressible: Thrombus - None: Flow - Phasic: Augmentation -Normal: Reflux - None. 5. Peroneal Vein: 5.1. Compressibility - Fully compressible: Thrombus - None: Flow - Phasic: Augmentation -Normal: Reflux - None. 6. Great Saphenous Vein: 6.1. Compressibility - Fully compressible: Thrombus - None: Flow - Phasic: Augmentation - Normal: Reflux - None. LEFT: 1. Common Femoral Vein: 1.1. Compressibility - Fully compressible: Thrombus - None: Flow - Phasic: Augmentation -Normal: Reflux - None. 2. Femoral Vein: 2.1. Compressibility - Partial: Thrombus - Acute: Flow - Reduced : Augmentation -Reduced: Reflux - None. 3. Popliteal Vein: 3.1. Compressibility - Partial: Thrombus - Acute : Flow - Reduced : Augmentation -Reduced: Reflux - None. 4. Posterior Tibial Vein: 4.1. Compressibility - Fully compressible: Thrombus - None: Flow - Phasic: Augmentation -Normal: Reflux - None. 5. Peroneal Vein: 5.1. Compressibility - Fully compressible: Thrombus - None: Flow - Phasic: Augmentation -Normal: Reflux - None. 6. Great Saphenous Vein: 6.1. Compressibility - Fully compressible: Thrombus - None: Flow - Phasic: Augmentation - Normal: Reflux - None. OTHER FINDINGS: JANESSA Kaplan notified about the findings. IMPRESSION: Right: No evidence of deep or superficial vein thrombosis of the right lower extremity. Normal valve function noted of the right side. Left: Acute thrombosis of the left femoral and popliteal veins with severe reduction of the venous return.
--- NOTE | 2017-11-10 13:40 | CP.PCM.PN ---
Subjective - Date & Time of Evaluation Date of Evaluation: 11/10/17 Time of Evaluation: 13:37 - Subjective Subjective: Podiatry Progress Note - Dr. Davis 77 y/o female seen at bedside this morning for her left foot 2nd toe injury and discoloration. Pt states she still has pain to the left 2nd toe, She states that the pain still present but decreasing now. Patient Describes it as a continuous sharp pain. She also continues to state the toe feels cool in temperature to her toe. Patient denies any new pedal complaints. Patient Denies any overnight F/C/N/V/CP/SOB Objective - Vital Signs/Intake and Output Vital Signs (last 24 hours): Temp Pulse Resp BP Pulse Ox 98.2 F 75 20 147/79 95 11/10/17 00:00 11/10/17 00:00 11/10/17 00:00 11/10/17 10:31 11/10/17 00:00 Intake and Output: 11/10/17 11/10/17 06:59 18:59 Intake Total 676.4 Balance 676.4 - Medications Medications: Current Medications Acetaminophen (Tylenol 325mg Tab) 650 mg PO Q4 PRN PRN Reason: Pain, Mild (1-3) Aspirin (Aspirin) 325 mg PO DAILY [facility] Last Admin: 11/10/17 10:31 Dose: 325 mg Calcium/Vitamin D (Oyster Shell Calcium/Vitamin D 500 Mg-200 Iu) 1 tab PO BID [facility] Last Admin: 11/10/17 10:31 Dose: 1 tab Docusate Sodium (Colace) 100 mg PO HS [facility] Last Admin: 11/09/17 21:59 Dose: 100 mg Enalapril Maleate (Vasotec) 10 mg PO BID [facility] Last Admin: 11/10/17 10:31 Dose: 10 mg Famotidine (Pepcid) 20 mg PO DAILY [facility] Last Admin: 11/10/17 10:30 Dose: 20 mg Folic Acid (Folic Acid) 1 mg PO DAILY [facility] Last Admin: 11/10/17 10:31 Dose: 1 mg Glimepiride (Amaryl) 4 mg PO ACB [facility] Last Admin: 11/10/17 07:55 Dose: Not Given Hydroxychloroquine Sulfate (Plaquenil) 200 mg PO BID [facility] PRN Reason: Protocol Last Admin: 11/10/17 10:31 Dose: 200 mg Clindamycin Phosphate 600 mg/ (Sodium Chloride) 54 mls @ 100 mls/hr IVPB Q8H [facility] PRN Reason: Protocol Last Admin: 11/10/17 11:21 Dose: 100 mls/hr Heparin Sodium/Sodium Chloride (Heparin 82693 Units/250ml 1/2 Normal Saline) 25 ,000 units in 250 mls @ 11.349 mls/hr IV .Q22H2M PRN; Protocol; 15 UNITS/KG/HR PRN Reason: ADJUST RATE PER PROTOCOL Last Admin: 11/09/17 12:28 Dose: 15 units/kg/hr, 11.349 mls/hr Oxybutynin Chloride (Ditropan Xl) 15 mg PO BID [facility] Last Admin: 11/10/17 10:29 Dose: 15 mg Prednisone (Prednisone Tab) 10 mg PO DAILY [facility] Last Admin: 11/10/17 10:31 Dose: 10 mg - Labs Labs: 11/09/17 07:16 11/07/17 19:51 PT 11.2 SECONDS (9.7-12.2) 11/08/17 13:59 INR 1.0 11/08/17 13:59 APTT 96 SECONDS (21-34) H D 11/10/17 09:02 - Head Exam Head Exam: ATRAUMATIC, NORMOCEPHALIC - Extremities Exam Additional comments: Lower extremity focused exam: Vasc: DP/PT palpable 1/4 B/L. CFT < 3 sec in all digits except the left 2nd digit (couldn't be assessed due to the color change). No pedal edema noted to bilateral lower extremities. Erythema to left 2nd digit subsided. Temp gradient warm to cool from proximal to distal. Left foot 2nd digit is cool to touch. Neuro: Gross sensation intact. Protective sensation diminished. Derm: Dark purple discoloration noted to left foot 2nd digit (Toe looks darker than yesterday). 1st left interspace the skin started to peel off. Toenails are thickened, dystrophic and discolored X 10. MSK: Tenderness to palpation of left foot 2nd toe. Tenderness elicited on active and passive ROM assessment of the left 2nd toe. Muscle power intact 5/5 in all groups. - Neurological Exam Neurological Exam: Alert, Awake, Oriented x3 - Psychiatric Exam Psychiatric exam: Normal Affect, Normal Mood Assessment and Plan - Assessment and Plan (Free Text) Assessment: 77 y/o female patient with left foot 2nd digit pain likely secondary to vascular insufficiency, worsened by trauma Plan: Patient seen and evaluated at bedside Plan discussed with attending Dr. Davis Afebrile, no leukocytosis noted Left foot x-ray shows no acute osseous findings, no fracture or dislocation Vascular surgery Dr. Gonzalez on board, appreciate recommendations Arterial duplex studies still pending, await results Venous Duplex shows DVT to the left popliteal and femoral veins, No DVT on the Right side. Continue pain management as per primary team Will continue to follow up patient while in house
--- NOTE | 2017-11-10 14:00 | CP.PCM.PN ---
Subjective - Date & Time of Evaluation Date of Evaluation: 11/10/17 Time of Evaluation: 08:30 - Subjective Subjective: clinically same Objective - Vital Signs/Intake and Output Vital Signs (last 24 hours): Temp Pulse Resp BP Pulse Ox 98.2 F 75 20 147/79 95 11/10/17 00:00 11/10/17 00:00 11/10/17 00:00 11/10/17 10:31 11/10/17 00:00 Intake and Output: 11/10/17 11/10/17 06:59 18:59 Intake Total 676.4 Balance 676.4 - Medications Medications: Current Medications Acetaminophen (Tylenol 325mg Tab) 650 mg PO Q4 PRN PRN Reason: Pain, Mild (1-3) Aspirin (Aspirin) 325 mg PO DAILY [facility] Last Admin: 11/10/17 10:31 Dose: 325 mg Calcium/Vitamin D (Oyster Shell Calcium/Vitamin D 500 Mg-200 Iu) 1 tab PO BID [facility] Last Admin: 11/10/17 10:31 Dose: 1 tab Docusate Sodium (Colace) 100 mg PO HS [facility] Last Admin: 11/09/17 21:59 Dose: 100 mg Enalapril Maleate (Vasotec) 10 mg PO BID [facility] Last Admin: 11/10/17 10:31 Dose: 10 mg Famotidine (Pepcid) 20 mg PO DAILY [facility] Last Admin: 11/10/17 10:30 Dose: 20 mg Folic Acid (Folic Acid) 1 mg PO DAILY [facility] Last Admin: 11/10/17 10:31 Dose: 1 mg Glimepiride (Amaryl) 4 mg PO ACB [facility] Last Admin: 11/10/17 07:55 Dose: Not Given Hydroxychloroquine Sulfate (Plaquenil) 200 mg PO BID [facility] PRN Reason: Protocol Last Admin: 11/10/17 10:31 Dose: 200 mg Clindamycin Phosphate 600 mg/ (Sodium Chloride) 54 mls @ 100 mls/hr IVPB Q8H [facility] PRN Reason: Protocol Last Admin: 11/10/17 11:21 Dose: 100 mls/hr Heparin Sodium/Sodium Chloride (Heparin 78643 Units/250ml 1/2 Normal Saline) 25 ,000 units in 250 mls @ 11.349 mls/hr IV .Q22H2M PRN; Protocol; 15 UNITS/KG/HR PRN Reason: ADJUST RATE PER PROTOCOL Last Admin: 11/09/17 12:28 Dose: 15 units/kg/hr, 11.349 mls/hr Oxybutynin Chloride (Ditropan Xl) 15 mg PO BID [facility] Last Admin: 11/10/17 10:29 Dose: 15 mg Prednisone (Prednisone Tab) 10 mg PO DAILY [facility] Last Admin: 11/10/17 10:31 Dose: 10 mg - Labs Labs: 11/09/17 07:16 11/07/17 19:51 PT 11.2 SECONDS (9.7-12.2) 11/08/17 13:59 INR 1.0 11/08/17 13:59 APTT 96 SECONDS (21-34) H D 11/10/17 09:02 - Constitutional Appears: Well - Head Exam Head Exam: ATRAUMATIC, NORMAL INSPECTION, NORMOCEPHALIC - Eye Exam Eye Exam: EOMI, Normal appearance, PERRL Pupil Exam: NORMAL ACCOMODATION, PERRL - ENT Exam ENT Exam: Mucous Membranes Moist, Normal Exam - Neck Exam Neck Exam: Full ROM, Normal Inspection. absent: Lymphadenopathy - Respiratory Exam Respiratory Exam: Decreased Breath Sounds - Cardiovascular Exam Cardiovascular Exam: REGULAR RHYTHM, +S1, +S2 - GI/Abdominal Exam GI & Abdominal Exam: Soft, Diminished Bowel Sounds - Rectal Exam Rectal Exam: Deferred Assessment and Plan (1) Toe contusion Status: Acute (2) Vascular insufficiency of extremity Status: Acute (3) IKE (acute kidney injury) Status: Acute (4) Abdominal pain Status: Acute (5) Dehydration Status: Acute (6) Incontinence of urine Status: Acute (7) Nausea Status: Acute (8) Pneumonia Status: Acute (9) Renal insufficiency Status: Acute (10) Severe sepsis Status: Acute (11) Urinary tract infection Status: Acute (12) Arthritis Status: Chronic (13) Diabetes Status: Chronic - Assessment and Plan (Free Text) Plan: Follow-up with vascular surgery Continue glimepiride aspirin Continue clindamycin Follow-up with ID consultations Status post lower arterial Doppler which revealed fully compressible no evidence of deep or superficial venous thrombosis left acute thrombosis of the left femoral popliteal vein with severe reduction of the venous return for which patient is seen by Dr. richter
[2017-11-10] MEDS: Heparin25000 units/250ml 1/2NS 25,000 UNITS/250 ML BAG IV PRN (15:21)
--- NOTE | 2017-11-10 16:04 | CP.PCM.PN ---
Subjective - Date & Time of Evaluation Date of Evaluation: 11/10/17 Time of Evaluation: 07:00 - Subjective Subjective: Pt states she still has pain to the left 2nd toe, Objective - Vital Signs/Intake and Output Vital Signs (last 24 hours): Temp Pulse Resp BP Pulse Ox 98.2 F 75 20 147/79 95 11/10/17 00:00 11/10/17 00:00 11/10/17 00:00 11/10/17 10:31 11/10/17 00:00 Intake and Output: 11/10/17 11/10/17 06:59 18:59 Intake Total 676.4 998.9 Balance 676.4 998.9 - Medications Medications: Current Medications Acetaminophen (Tylenol 325mg Tab) 650 mg PO Q4 PRN PRN Reason: Pain, Mild (1-3) Aspirin (Aspirin) 325 mg PO DAILY [facility] Last Admin: 11/10/17 10:31 Dose: 325 mg Calcium/Vitamin D (Oyster Shell Calcium/Vitamin D 500 Mg-200 Iu) 1 tab PO BID [facility] Last Admin: 11/10/17 10:31 Dose: 1 tab Docusate Sodium (Colace) 100 mg PO HS [facility] Last Admin: 11/09/17 21:59 Dose: 100 mg Enalapril Maleate (Vasotec) 10 mg PO BID [facility] Last Admin: 11/10/17 10:31 Dose: 10 mg Famotidine (Pepcid) 20 mg PO DAILY [facility] Last Admin: 11/10/17 10:30 Dose: 20 mg Folic Acid (Folic Acid) 1 mg PO DAILY [facility] Last Admin: 11/10/17 10:31 Dose: 1 mg Glimepiride (Amaryl) 4 mg PO ACB [facility] Last Admin: 11/10/17 07:55 Dose: Not Given Hydroxychloroquine Sulfate (Plaquenil) 200 mg PO BID [facility] PRN Reason: Protocol Last Admin: 11/10/17 10:31 Dose: 200 mg Clindamycin Phosphate 600 mg/ (Sodium Chloride) 54 mls @ 100 mls/hr IVPB Q8H [facility] PRN Reason: Protocol Last Admin: 11/10/17 11:21 Dose: 100 mls/hr Heparin Sodium/Sodium Chloride (Heparin 69937 Units/250ml 1/2 Normal Saline) 25 ,000 units in 250 mls @ 11.349 mls/hr IV .Q22H2M PRN; Protocol; 15 UNITS/KG/HR PRN Reason: ADJUST RATE PER PROTOCOL Last Admin: 11/10/17 15:21 Dose: 15.59 units/kg/hr, 11.8 mls/hr Oxybutynin Chloride (Ditropan Xl) 15 mg PO BID [facility] Last Admin: 11/10/17 10:29 Dose: 15 mg Prednisone (Prednisone Tab) 10 mg PO DAILY [facility] Last Admin: 11/10/17 10:31 Dose: 10 mg - Labs Labs: 11/09/17 07:16 11/07/17 19:51 PT 11.2 SECONDS (9.7-12.2) 11/08/17 13:59 INR 1.0 11/08/17 13:59 APTT 96 SECONDS (21-34) H D 11/10/17 09:02 - Constitutional Appears: Non-toxic, Chronically Ill - Head Exam Head Exam: NORMOCEPHALIC - Eye Exam Eye Exam: PERRL - ENT Exam ENT Exam: Mucous Membranes Dry - Neck Exam Neck Exam: absent: Lymphadenopathy - Respiratory Exam Respiratory Exam: Decreased Breath Sounds - Cardiovascular Exam Cardiovascular Exam: REGULAR RHYTHM, +S1, +S2 - GI/Abdominal Exam GI & Abdominal Exam: Distended, Soft - Rectal Exam Rectal Exam: Deferred - Exam Exam: NORMAL INSPECTION - Extremities Exam Extremities Exam: absent: Pedal Edema - Back Exam Back Exam: absent: CVA tenderness (L), CVA tenderness (R) - Neurological Exam Neurological Exam: Alert, Awake, Oriented x3 - Psychiatric Exam Psychiatric exam: Depressed - Skin Skin Exam: Dry, Intact Assessment and Plan (1) Toe contusion Status: Acute (2) Vascular insufficiency of extremity Status: Acute - Assessment and Plan (Free Text) Assessment: cont wound care/ observation vascular eval
--- NOTE | 2017-11-11 07:59 | CP.PCM.PN ---
Subjective - Date & Time of Evaluation Date of Evaluation: 11/11/17 Time of Evaluation: 09:37 - Subjective Subjective: Vascular surgery progress note for Dr. Jasvir Amezquita, PGY-2 Pt S & E at bedside at 0920 Pt sitting in bed, comfortable. Reports that left toe pain is improved. Occasionally has numbness and tingling of feet over past year. No other complaints. Objective - Vital Signs/Intake and Output Vital Signs (last 24 hours): Temp Pulse Resp BP Pulse Ox 98.1 F 78 20 146/73 100 11/11/17 07:36 11/11/17 07:36 11/11/17 07:36 11/11/17 07:36 11/11/17 07:36 Intake and Output: 11/11/17 11/11/17 06:59 18:59 Intake Total 624.4 Output Total 3 Balance 621.4 - Medications Medications: Current Medications Acetaminophen (Tylenol 325mg Tab) 650 mg PO Q4 PRN PRN Reason: Pain, Mild (1-3) Aspirin (Aspirin) 325 mg PO DAILY [facility] Last Admin: 11/10/17 10:31 Dose: 325 mg Calcium/Vitamin D (Oyster Shell Calcium/Vitamin D 500 Mg-200 Iu) 1 tab PO BID [facility] Last Admin: 11/10/17 17:28 Dose: 1 tab Docusate Sodium (Colace) 100 mg PO HS [facility] Last Admin: 11/10/17 21:47 Dose: 100 mg Enalapril Maleate (Vasotec) 10 mg PO BID [facility] Last Admin: 11/10/17 17:29 Dose: 10 mg Famotidine (Pepcid) 20 mg PO DAILY [facility] Last Admin: 11/10/17 10:30 Dose: 20 mg Folic Acid (Folic Acid) 1 mg PO DAILY [facility] Last Admin: 11/10/17 10:31 Dose: 1 mg Glimepiride (Amaryl) 4 mg PO ACB [facility] Last Admin: 11/10/17 07:55 Dose: Not Given Hydroxychloroquine Sulfate (Plaquenil) 200 mg PO BID [facility] PRN Reason: Protocol Last Admin: 11/10/17 17:29 Dose: 200 mg Clindamycin Phosphate 600 mg/ (Sodium Chloride) 54 mls @ 100 mls/hr IVPB Q8H [facility] PRN Reason: Protocol Last Admin: 11/11/17 04:16 Dose: 100 mls/hr Heparin Sodium/Sodium Chloride (Heparin 81714 Units/250ml 1/2 Normal Saline) 25 ,000 units in 250 mls @ 11.349 mls/hr IV .Q22H2M PRN; Protocol; 15 UNITS/KG/HR PRN Reason: ADJUST RATE PER PROTOCOL Last Admin: 11/10/17 15:21 Dose: 15.59 units/kg/hr, 11.8 mls/hr Oxybutynin Chloride (Ditropan Xl) 15 mg PO BID [facility] Last Admin: 11/10/17 17:30 Dose: 15 mg Prednisone (Prednisone Tab) 10 mg PO DAILY [facility] Last Admin: 11/10/17 10:31 Dose: 10 mg - Labs Labs: 11/09/17 07:16 11/07/17 19:51 PT 11.2 SECONDS (9.7-12.2) 11/08/17 13:59 INR 1.0 11/08/17 13:59 APTT 71 SECONDS (21-34) H D 11/11/17 06:48 - Constitutional Appears: Non-toxic, No Acute Distress - Head Exam Head Exam: ATRAUMATIC, NORMAL INSPECTION, NORMOCEPHALIC - Eye Exam Eye Exam: EOMI, Normal appearance - ENT Exam ENT Exam: Mucous Membranes Moist, Normal Exam - Neck Exam Neck Exam: Full ROM, Normal Inspection - Respiratory Exam Respiratory Exam: NORMAL BREATHING PATTERN - Cardiovascular Exam Cardiovascular Exam: REGULAR RHYTHM, +S1, +S2 - GI/Abdominal Exam GI & Abdominal Exam: Soft. absent: Tenderness - Extremities Exam Additional comments: left toe with dressing in place- clean/dry/intact - Neurological Exam Neurological Exam: Alert, Awake, CN II-XII Intact, Oriented x3 - Psychiatric Exam Psychiatric exam: Normal Affect, Normal Mood - Skin Additional comments: unable to asses, left toes covered with dressing Assessment and Plan - Assessment and Plan (Free Text) Assessment: 77F w/LLE toe vascular insufficiency, LE DVT Plan: Cont heparin drip Arterial duplex with L femoral and popliteal acute thrombosis from 11/08 Further recs pending attending evaluation Will DW Dr. Carlos Amezquita, PGY-2
[2017-11-11] MEDS: Calcium-Vit D 500 mg-200 Units Tab UD PO SCH ×2 (10:02→17:54)
--- NOTE | 2017-11-11 11:44 | CP.PCM.PN ---
Subjective - Date & Time of Evaluation Date of Evaluation: 11/11/17 Time of Evaluation: 07:00 - Subjective Subjective: slow progress renal function stable Objective - Vital Signs/Intake and Output Vital Signs (last 24 hours): Temp Pulse Resp BP Pulse Ox 98.1 F 78 20 146/73 100 11/11/17 07:36 11/11/17 07:36 11/11/17 07:36 11/11/17 10:01 11/11/17 07:36 Intake and Output: 11/11/17 11/11/17 06:59 18:59 Intake Total 624.4 Output Total 3 Balance 621.4 - Medications Medications: Current Medications Acetaminophen (Tylenol 325mg Tab) 650 mg PO Q4 PRN PRN Reason: Pain, Mild (1-3) Aspirin (Aspirin) 325 mg PO DAILY [facility] Last Admin: 11/11/17 10:02 Dose: 325 mg Calcium/Vitamin D (Oyster Shell Calcium/Vitamin D 500 Mg-200 Iu) 1 tab PO BID [facility] Last Admin: 11/11/17 10:02 Dose: 1 tab Docusate Sodium (Colace) 100 mg PO HS [facility] Last Admin: 11/10/17 21:47 Dose: 100 mg Enalapril Maleate (Vasotec) 10 mg PO BID [facility] Last Admin: 11/11/17 10:01 Dose: 10 mg Famotidine (Pepcid) 20 mg PO DAILY [facility] Last Admin: 11/11/17 10:00 Dose: 20 mg Folic Acid (Folic Acid) 1 mg PO DAILY [facility] Last Admin: 11/11/17 10:02 Dose: 1 mg Glimepiride (Amaryl) 4 mg PO ACB [facility] Last Admin: 11/11/17 08:30 Dose: 4 mg Clindamycin Phosphate 600 mg/ (Sodium Chloride) 54 mls @ 100 mls/hr IVPB Q8H [facility] PRN Reason: Protocol Last Admin: 11/11/17 04:16 Dose: 100 mls/hr Heparin Sodium/Sodium Chloride (Heparin 43048 Units/250ml 1/2 Normal Saline) 25 ,000 units in 250 mls @ 11.349 mls/hr IV .Q22H2M PRN; Protocol; 15 UNITS/KG/HR PRN Reason: ADJUST RATE PER PROTOCOL Last Admin: 11/10/17 15:21 Dose: 15.59 units/kg/hr, 11.8 mls/hr Oxybutynin Chloride (Ditropan Xl) 15 mg PO BID [facility] Last Admin: 11/11/17 10:00 Dose: 15 mg Prednisone (Prednisone Tab) 10 mg PO DAILY [facility] Last Admin: 11/11/17 10:00 Dose: 10 mg - Labs Labs: 11/09/17 07:16 11/07/17 19:51 PT 11.2 SECONDS (9.7-12.2) 11/08/17 13:59 INR 1.0 11/08/17 13:59 APTT 71 SECONDS (21-34) H D 11/11/17 06:48 - Constitutional Appears: Non-toxic, Chronically Ill - Head Exam Head Exam: NORMOCEPHALIC - Eye Exam Eye Exam: absent: Scleral icterus - ENT Exam ENT Exam: Mucous Membranes Dry - Neck Exam Neck Exam: absent: Lymphadenopathy Assessment and Plan (1) Toe contusion Status: Acute (2) Vascular insufficiency of extremity Status: Acute
--- NOTE | 2017-11-11 14:06 | CP.PCM.PN ---
Subjective - Date & Time of Evaluation Date of Evaluation: 11/11/17 Time of Evaluation: 11:00 - Subjective Subjective: Patient seen today, denies any chest apin, sob, abdominal pain, c/o mild pain to giselle 2nd toe left foot purple discoloration noted to left foot 2nd digit a febrile Objective - Vital Signs/Intake and Output Vital Signs (last 24 hours): Temp Pulse Resp BP Pulse Ox 98.1 F 78 20 146/73 100 11/11/17 07:36 11/11/17 07:36 11/11/17 07:36 11/11/17 10:01 11/11/17 07:36 Intake and Output: 11/11/17 11/11/17 06:59 18:59 Intake Total 624.4 Output Total 3 Balance 621.4 - Medications Medications: Current Medications Acetaminophen (Tylenol 325mg Tab) 650 mg PO Q4 PRN PRN Reason: Pain, Mild (1-3) Apixaban (Eliquis) 10 mg PO BID [facility] Aspirin (Aspirin) 325 mg PO DAILY [facility] Last Admin: 11/11/17 10:02 Dose: 325 mg Calcium/Vitamin D (Oyster Shell Calcium/Vitamin D 500 Mg-200 Iu) 1 tab PO BID [facility] Last Admin: 11/11/17 10:02 Dose: 1 tab Docusate Sodium (Colace) 100 mg PO HS [facility] Last Admin: 11/10/17 21:47 Dose: 100 mg Enalapril Maleate (Vasotec) 10 mg PO BID [facility] Last Admin: 11/11/17 10:01 Dose: 10 mg Famotidine (Pepcid) 20 mg PO DAILY [facility] Last Admin: 11/11/17 10:00 Dose: 20 mg Folic Acid (Folic Acid) 1 mg PO DAILY [facility] Last Admin: 11/11/17 10:02 Dose: 1 mg Glimepiride (Amaryl) 4 mg PO ACB [facility] Last Admin: 11/11/17 08:30 Dose: 4 mg Clindamycin Phosphate 600 mg/ (Sodium Chloride) 54 mls @ 100 mls/hr IVPB Q8H [facility] PRN Reason: Protocol Last Admin: 11/11/17 04:16 Dose: 100 mls/hr Oxybutynin Chloride (Ditropan Xl) 15 mg PO BID [facility] Last Admin: 11/11/17 10:00 Dose: 15 mg Prednisone (Prednisone Tab) 10 mg PO DAILY [facility] Last Admin: 11/11/17 10:00 Dose: 10 mg - Labs Labs: 11/09/17 07:16 11/07/17 19:51 PT 11.2 SECONDS (9.7-12.2) 11/08/17 13:59 INR 1.0 11/08/17 13:59 APTT 71 SECONDS (21-34) H D 11/11/17 06:48 Assessment and Plan - Assessment and Plan (Free Text) Assessment: A/P 77 y/o female, with pmhx of HTN, DM admittedf with increasing pain/ swelling to the 2nd toe on the left foot s/p injury 3 days ago. x-ray- LE - negative for fx LE DUPLEX - + DVTof femoral and poplital with severe reduction of flow and started on heparin drip Dr. Stone consulted for vascular insufficiency, no intervention recommended seen by Dr. Garrett today, cleared fro discharge back to [facility] today and continue eliquis for DVT Discharge plan discussed with vadim who understands and agrees with plan SW will arrange transportation and contact facility
[2017-11-11 14:29] LABS: BASO # 0.1 K/uL (0.0-0.2); BASO % 0.6 % (0.0-2.0); EOS # 0.3 K/uL (0.0-0.7); EOS % 2.8 % (0.0-4.0); HEMOGLOBIN 10.3 g/dL (11.0-16.0); LYMPH # 1.2 K/uL (1.0-4.3); LYMPH % 13.2 % (20.0-40.0); MEAN CORPUSCULAR HEMOGLOBIN 27.6 pg (27.0-31.0); MEAN CORPUSCULAR HGB CONC 32.1 g/dL (33.0-37.0); MEAN PLATELET VOLUME 7.3 fL (7.2-11.7); MONO # 0.3 K/uL (0.0-0.8); MONO % 3.2 % (0.0-10.0); NEUT # 7.3 K/uL (1.8-7.0); NEUT % 80.2 % (50.0-75.0); RBC 3.74 Mil/uL (3.80-5.20); RED CELL DISTRIBUTION WIDTH 14.4 % (11.5-14.5); WHITE BLOOD COUNT 9.1 K/uL (4.8-10.8)
[2017-11-11 14:38] LABS: CALCIUM 9.5 mg/dl (8.6-10.4)
--- NOTE | 2017-11-11 15:15 | CP.PCM.PN ---
Subjective - Date & Time of Evaluation Date of Evaluation: 11/11/17 Time of Evaluation: 08:30 - Subjective Subjective: clinically same Objective - Vital Signs/Intake and Output Vital Signs (last 24 hours): Temp Pulse Resp BP Pulse Ox 98.1 F 78 20 146/73 100 11/11/17 07:36 11/11/17 07:36 11/11/17 07:36 11/11/17 10:01 11/11/17 07:36 Intake and Output: 11/11/17 11/11/17 06:59 18:59 Intake Total 624.4 Output Total 3 Balance 621.4 - Medications Medications: Current Medications Acetaminophen (Tylenol 325mg Tab) 650 mg PO Q4 PRN PRN Reason: Pain, Mild (1-3) Apixaban (Eliquis) 10 mg PO BID [facility] Last Admin: 11/11/17 14:53 Dose: 10 mg Aspirin (Aspirin) 325 mg PO DAILY [facility] Last Admin: 11/11/17 10:02 Dose: 325 mg Calcium/Vitamin D (Oyster Shell Calcium/Vitamin D 500 Mg-200 Iu) 1 tab PO BID [facility] Last Admin: 11/11/17 10:02 Dose: 1 tab Docusate Sodium (Colace) 100 mg PO HS [facility] Last Admin: 11/10/17 21:47 Dose: 100 mg Enalapril Maleate (Vasotec) 10 mg PO BID [facility] Last Admin: 11/11/17 10:01 Dose: 10 mg Famotidine (Pepcid) 20 mg PO DAILY [facility] Last Admin: 11/11/17 10:00 Dose: 20 mg Folic Acid (Folic Acid) 1 mg PO DAILY [facility] Last Admin: 11/11/17 10:02 Dose: 1 mg Glimepiride (Amaryl) 4 mg PO ACB [facility] Last Admin: 11/11/17 08:30 Dose: 4 mg Clindamycin Phosphate 600 mg/ (Sodium Chloride) 54 mls @ 100 mls/hr IVPB Q8H [facility] PRN Reason: Protocol Last Admin: 11/11/17 12:51 Dose: 100 mls/hr Oxybutynin Chloride (Ditropan Xl) 15 mg PO BID [facility] Last Admin: 11/11/17 10:00 Dose: 15 mg Prednisone (Prednisone Tab) 10 mg PO DAILY [facility] Last Admin: 11/11/17 10:00 Dose: 10 mg - Labs Labs: 11/11/17 14:15 11/11/17 14:15 PT 11.2 SECONDS (9.7-12.2) 11/08/17 13:59 INR 1.0 11/08/17 13:59 APTT 71 SECONDS (21-34) H D 11/11/17 06:48 - Constitutional Appears: Well - Head Exam Head Exam: ATRAUMATIC, NORMAL INSPECTION, NORMOCEPHALIC - Eye Exam Eye Exam: EOMI, Normal appearance, PERRL Pupil Exam: NORMAL ACCOMODATION, PERRL - ENT Exam ENT Exam: Mucous Membranes Moist, Normal Exam - Neck Exam Neck Exam: Full ROM, Normal Inspection. absent: Lymphadenopathy - Respiratory Exam Respiratory Exam: Decreased Breath Sounds - Cardiovascular Exam Cardiovascular Exam: REGULAR RHYTHM, +S1, +S2 - GI/Abdominal Exam GI & Abdominal Exam: Soft, Diminished Bowel Sounds - Rectal Exam Rectal Exam: Deferred Assessment and Plan (1) Toe contusion Status: Acute (2) Vascular insufficiency of extremity Status: Acute (3) IKE (acute kidney injury) Status: Acute (4) Abdominal pain Status: Acute (5) Dehydration Status: Acute (6) Incontinence of urine Status: Acute (7) Nausea Status: Acute (8) Pneumonia Status: Acute (9) Renal insufficiency Status: Acute (10) Severe sepsis Status: Acute (11) Urinary tract infection Status: Acute (12) Arthritis Status: Chronic (13) Diabetes Status: Chronic
--- NOTE | 2017-11-11 15:27 | CP.PCM.PN ---
Subjective - Date & Time of Evaluation Date of Evaluation: 11/11/17 Time of Evaluation: 11:00 - Subjective Subjective: Podiatry Progress Note - Dr. Davis 77 y/o female seen at bedside this morning for her left foot 2nd toe injury and discoloration. Patient denies of having any pain to the left 2nd digit today. Patient denies any new pedal complaints. Patient Denies any overnight F/C/N/V/ CP/SOB Objective - Vital Signs/Intake and Output Vital Signs (last 24 hours): Temp Pulse Resp BP Pulse Ox 98.1 F 78 20 146/73 100 11/11/17 07:36 11/11/17 07:36 11/11/17 07:36 11/11/17 10:01 11/11/17 07:36 Intake and Output: 11/11/17 11/11/17 06:59 18:59 Intake Total 624.4 Output Total 3 Balance 621.4 - Medications Medications: Current Medications Acetaminophen (Tylenol 325mg Tab) 650 mg PO Q4 PRN PRN Reason: Pain, Mild (1-3) Apixaban (Eliquis) 10 mg PO BID [facility] Last Admin: 11/11/17 14:53 Dose: 10 mg Aspirin (Aspirin) 325 mg PO DAILY [facility] Last Admin: 11/11/17 10:02 Dose: 325 mg Calcium/Vitamin D (Oyster Shell Calcium/Vitamin D 500 Mg-200 Iu) 1 tab PO BID [facility] Last Admin: 11/11/17 10:02 Dose: 1 tab Docusate Sodium (Colace) 100 mg PO HS [facility] Last Admin: 11/10/17 21:47 Dose: 100 mg Enalapril Maleate (Vasotec) 10 mg PO BID [facility] Last Admin: 11/11/17 10:01 Dose: 10 mg Famotidine (Pepcid) 20 mg PO DAILY [facility] Last Admin: 11/11/17 10:00 Dose: 20 mg Folic Acid (Folic Acid) 1 mg PO DAILY [facility] Last Admin: 11/11/17 10:02 Dose: 1 mg Glimepiride (Amaryl) 4 mg PO ACB [facility] Last Admin: 11/11/17 08:30 Dose: 4 mg Clindamycin Phosphate 600 mg/ (Sodium Chloride) 54 mls @ 100 mls/hr IVPB Q8H [facility] PRN Reason: Protocol Last Admin: 11/11/17 12:51 Dose: 100 mls/hr Oxybutynin Chloride (Ditropan Xl) 15 mg PO BID [facility] Last Admin: 11/11/17 10:00 Dose: 15 mg Prednisone (Prednisone Tab) 10 mg PO DAILY [facility] Last Admin: 11/11/17 10:00 Dose: 10 mg - Labs Labs: 11/11/17 14:15 11/11/17 14:15 PT 11.2 SECONDS (9.7-12.2) 11/08/17 13:59 INR 1.0 11/08/17 13:59 APTT 71 SECONDS (21-34) H D 11/11/17 06:48 - Constitutional Appears: Well, Non-toxic, No Acute Distress - Extremities Exam Additional comments: Lower extremity focused exam: Vasc: DP/PT palpable 1/4 B/L. CFT < 3 sec in all digits except the left 2nd digit (couldn't be assessed due to the color change). No pedal edema noted to bilateral lower extremities. Erythema to left 2nd digit subsided. Temp gradient warm to cool from proximal to distal. Left foot 2nd digit is cool to touch. Neuro: Gross sensation intact. Protective sensation diminished. Derm: Dark purple discoloration noted to left foot 2nd digit no open lesions, no clinical suspicion of active infection MSK: Tenderness to palpation of left foot 2nd toe. Tenderness elicited on active and passive ROM assessment of the left 2nd toe. Muscle power intact 5/5 in all groups. - Neurological Exam Neurological Exam: Alert, Awake, Oriented x3 - Psychiatric Exam Psychiatric exam: Normal Affect, Normal Mood Assessment and Plan - Assessment and Plan (Free Text) Assessment: 77 y/o female patient with left foot 2nd digit pain likely secondary to vascular insufficiency, worsened by trauma Plan: Patient seen and evaluated at bedside Plan discussed with attending Dr. Davis Afebrile, no leukocytosis noted Left foot x-ray shows no acute osseous findings, no fracture or dislocation Vascular surgery Dr. Gonzalez on board, appreciate recommendations Arterial duplex studies - Acute thrombosis of L femoral and popliteal Venous Duplex shows DVT to the left popliteal and femoral veins, No DVT on the Right side. Continue pain management as per primary team Patient is stable from podiatry standpoint; continue management as per vascular Cont heparin drip as per vascular Will continue to follow up patient while in house
[2017-11-11 17:57] VITALS: BP 146/82
[2017-11-11 18:16] VITALS: PULSE 79; TEMP 98.3; O2SAT 99
== END 2017-11-11 21:32 | disposition home or self-care (01) | DRG 300 ==
LOC: C.ER 19:18 → C.9E 22:26 → C.3T 23:17
PROVIDERS: ADMIT Internal Medicine Nephrology; ATTEND Internal Medicine Nephrology
DX: E11.52 Type 2 diabetes mellitus with diabetic peripheral angiopathy with gangrene (principal); I82.412 Acute embolism and thrombosis of left femoral vein; I82.432 Acute embolism and thrombosis of left popliteal vein; S90.122A Contusion of left lesser toe(s) without damage to nail, initial encounter; E86.0 Dehydration; I87.2 Venous insufficiency (chronic) (peripheral); I10 Essential (primary) hypertension; E11.36 Type 2 diabetes mellitus with diabetic cataract; R32 Unspecified urinary incontinence; M19.90 Unspecified osteoarthritis, unspecified site; Z87.01 Personal history of pneumonia (recurrent); Z87.440 Personal history of urinary (tract) infections; Z86.19 Personal history of other infectious and parasitic diseases; Z87.891 Personal history of nicotine dependence; Z90.49 Acquired absence of other specified parts of digestive tract; Z91.012 Allergy to eggs; Z88.0 Allergy status to penicillin; Z91.018 Allergy to other foods